=== PATIENT | female | born 1995 | race Caucasian/White ===

== ENCOUNTER 2017-09-05 19:00 | Emergency (ER) | payer SELFPAY ==
--- OUTSIDE RECORDS SUMMARY | 2017-09-05 19:03 | XMS REPORT | Clinical Summary ---
:1995 Author Organization [facility] Address [address] [place] [address] Phone Care Team Providers Name Role Phone Unavailable Primary Care Provider Unavailable Allergies Active Allergy Reactions Severity Noted Date Comments Ciprofloxacin 02/19/2017 Latex 02/19/2017 Current Medications Prescription Sig. Disp. Refills Start Date End Date Status fvjtnwwjs-NG-HU-acetaminophen Take by mouth. Active 52-04-13-650 mg PPkS Active Problems Not on file Encounters Date Type Specialty Care Team Description 02/20/2017 Emergency Emergency Medicine after 09/04/2016 Social History Tobacco Use Types Packs/Day Years Used Date Current Every Day Smoker Smokeless Tobacco: Never Used Alcohol Use Drinks/Week oz/Week Comments Yes Sex Assigned at Date Recorded Not on file Last Filed Vital Signs Vital Sign Reading Time Taken Blood Pressure 136/62 02/20/2017 3:29 AM STYLIST ASSISTANT Pulse 82 02/20/2017 3:29 AM STYLIST ASSISTANT Temperature 36.6 C (97.8 F) 02/20/2017 3:29 AM STYLIST ASSISTANT Respiratory Rate 18 02/20/2017 3:29 AM STYLIST ASSISTANT Oxygen Saturation 100% 02/20/2017 3:29 AM STYLIST ASSISTANT Inhaled Oxygen Concentration - - Weight 77.1 kg (170 lb) 02/19/2017 9:53 PM STYLIST ASSISTANT Height 162.6 cm (5' 4") 02/19/2017 9:53 PM STYLIST ASSISTANT Body Mass Index 29.18 02/19/2017 9:53 PM STYLIST ASSISTANT Plan of Treatment Not on file Results CBC with platelet count + automated diff (02/20/2017 2:38 AM) Component Value Ref Range WBC 10.0 3.5 - 10.5 K/L RBC 4.50 3.93 - 5.22 M/L Hemoglobin 13.2 11.2 - 15.7 GM/DL Hematocrit 39.9 34.1 - 44.9 % MCV 88.7 79.4 - 94.8 fL MCH 29.3 25.6 - 32.2 pg MCHC 33.1 32.2 - 35.5 GM/DL RDW 13.5 11.7 - 14.4 % Platelets 227 150 - 450 K/CU MM MPV 10.5 9.4 - 12.3 fL nRBC 0 0 - 0 /100 WBC % Neutros 46 % % Lymphs 35 % % Monos 10 % % Eos 8 % % Baso 1 % # Neutros 4.60 1.56 - 6.13 K/L # Lymphs 3.51 1.18 - 3.74 K/L # Monos 0.98 (H) 0.24 - 0.36 K/L # Eos 0.79 (H) 0.04 - 0.36 K/L # Baso 0.07 0.01 - 0.08 K/L Immature Granulocytes-Relative 0 0 - 1 % Specimen Performing Laboratory Blood - Arm, [address] [address] CBC with platelet count + automated diff (02/20/2017 2:38 AM) Specimen Performing Laboratory Blood Narrative The following orders were created for panel order CBC with platelet count + automated diff. Procedure Abnormality Status --------- ------ CBC with platelet count ...[[id number]]AbnormalFinal result Please view results for these tests on the individual orders. hCG, quantitative, (02/20/2017 2:38 AM) Component Value Ref Range hCG Quant <1 0 - 10 mIU/mL Specimen Performing Laboratory Blood - Arm, [address] [address] Narrative Non- Females: <10 mIU/mL Females: Gestation AgeReference Range(mIU/mL) 0.2-1 Week5-50 1-2 [id number] 2-3 Weeks 100-5,000 3-4 Weeks 500-10,000 4-5 Weeks 1,000-50,000 5-6 Weeks10,000-100,000 6-8 Weeks15,000-200,000 2-3 Months 10,000-100,000 Basic metabolic panel (Na, K+, Cl, CO2, Glu, Ca, BUN, Cr) (02/20/2017 2:38 AM) Component Value Ref Range Sodium 139 136 - 145 meq/L Potassium 4.0 3.5 - 5.1 meq/L Chloride 106 98 - 107 meq/L CO2 23 22 - 29 meq/L BUN 8 7 - 21 mg/dL Creatinine 0.78 0.57 - 1.25 mg/dL Glucose 95 70 - 105 mg/dL Calcium 9.7 8.4 - 10.2 mg/dL EGFR 92Comment: ESTIMATED GFR IS NOT ACCURATE mL/min/1.73 sq m CREATININE CLEARANCE IN PREDICTING GLOMERULAR FILTRATION RATE. ESTIMATED GFR IS NOT APPLICABLE FOR DIALYSIS PATIENTS. Specimen Performing Laboratory Blood - Arm, Left [address] [address] screen, urine (02/19/2017 9:57 PM) Component Value Ref Range Preg Test, Ur Negative Specimen Performing Laboratory Urine - Urine, Clean Catch [address] [address] Urinalysis w/Microscopic - Clean Catch (02/19/2017 9:57 PM) Component Value Ref Range Color, UA Harmon Clarity, UA Hazy Specific [place], UA 1.021 1.001 - 1.035 pH, UA 6.5 5.0 - 8.0 Protein, UA 50 mg/dL (A) Negative Glucose, UA Negative Negative Ketones, UA Trace (A) Negative Bilirubin, UA Negative Negative Blood, UA Large (A) Negative Nitrite, UA Negative Negative Leukocytes, UA Moderate (A) Negative Urobilinogen, UA 4.0 (H) 0.2 - 1.0 mg/dL RBC, UA >182 /HPF WBC, UA 23 /HPF Mucus Many Squam Epithel, UA 5 /HPF Specimen Source Urine, Clean Catch Specimen Performing Laboratory Urine - Urine, Clean Catch [address] [address] after 09/04/2016
--- OUTSIDE RECORDS SUMMARY | 2017-09-05 19:03 | XMS REPORT ---
:1995 Author Organization [facility] Address [address] [place] [address] Care Team Providers Name Role Phone Unavailable Unavailable Unavailable Problems This patient has no known problems. Allergies, Adverse Reactions, Alerts This patient has no known allergies or adverse reactions. Medications This patient has no known medications. Results Test Description Test Time Test Comments Text Results Atomic Results Result Comments HCG, QUANTITATIVE, 2017-02-20 03:46:00 Test Item Value Reference Range Comments GONADOTROPIN, CHORIONIC (HCG) QUANT (BEAKER) (test kugu=361) < mIU/mL 0-10 Non- Females: <10 mIU/mL Females: Gestation Age Reference Range(mIU/mL) 0.2-1 Week 5-50 1-2 Weeks 50-500 2-3 Weeks 100-5,000 3-4Weeks 500-10,000 4 -5 Weeks 1,000-50,000 5-6 Weeks 10,000-100,000 6-8 Weeks 15,000-200,000 2-3 Months 10,000-100,000BASIC METABOLIC [id number] 03:36:00 Test Item Value Reference Range Comments SODIUM (BEAKER) (test 139 meq/L 136-145 johb=930) POTASSIUM (BEAKER) (test 4.0 meq/L 3.5-5.1 ciwj=472) CHLORIDE (BEAKER) (test 106 meq/L 98-107 bquy=029) CO2 (BEAKER) (test 23 meq/L 22-29 nlna=867) BLOOD UREA NITROGEN 8 mg/dL 7-21 (BEAKER) (test diky=687) CREATININE (BEAKER) (test 0.78 mg/dL 0.57-1.25 naez=721) GLUCOSE RANDOM (BEAKER) 95 mg/dL 70-105 (test nrkv=587) CALCIUM (BEAKER) (test 9.7 mg/dL 8.4-10.2 gutn=818) EGFR (BEAKER) (test 92 mL/min/1.73 sq m ESTIMATED GFR IS NOT zmzm=4894) ACCURATE CREATININE CLEARANCE IN PREDICTING GLOMERULAR FILTRATION RATE. ESTIMATED GFR IS NOT APPLICABLE FOR DIALYSIS PATIENTS. CBC W/PLT COUNT & AUTO [id number] 02:53:00 Test Item Value Reference Range Comments WHITE BLOOD CELL COUNT (BEAKER) (test cszu=391) 10.0 K/ L 3.5-10.5 RED BLOOD CELL COUNT (BEAKER) (test hhay=698) 4.50 M/ L 3.93-5.22 HEMOGLOBIN (BEAKER) (test hfby=821) 13.2 GM/DL 11.2-15.7 HEMATOCRIT (BEAKER) (test gjzm=149) 39.9 % 34.1-44.9 MEAN CORPUSCULAR VOLUME (BEAKER) (test acts=502) 88.7 fL 79.4-94.8 MEAN CORPUSCULAR HEMOGLOBIN (BEAKER) (test 29.3 pg 25.6-32.2 eyjk=149) MEAN CORPUSCULAR HEMOGLOBIN CONC (BEAKER) (test 33.1 GM/DL 32.2-35.5 bydz=759) RED CELL DISTRIBUTION WIDTH (BEAKER) (test 13.5 % 11.7-14.4 oeel=507) PLATELET COUNT (BEAKER) (test moin=136) 227 K/CU MM 150-450 MEAN PLATELET VOLUME (BEAKER) (test qngx=814) 10.5 fL 9.4-12.3 NUCLEATED RED BLOOD CELLS (BEAKER) (test 0 /100 WBC 0-0 doih=044) NEUTROPHILS RELATIVE PERCENT (BEAKER) (test 46 % syqk=452) LYMPHOCYTES RELATIVE PERCENT (BEAKER) (test 35 % lfwd=548) MONOCYTES RELATIVE PERCENT (BEAKER) (test 10 % eplp=202) EOSINOPHILS RELATIVE PERCENT (BEAKER) (test 8 % skzd=308) BASOPHILS RELATIVE PERCENT (BEAKER) (test 1 % lkux=490) NEUTROPHILS ABSOLUTE COUNT (BEAKER) (test 4.60 K/ L 1.56-6.13 mznj=989) LYMPHOCYTES ABSOLUTE COUNT (BEAKER) (test 3.51 K/ L 1.18-3.74 kgqx=587) MONOCYTES ABSOLUTE COUNT (BEAKER) (test 0.98 K/ L 0.24-0.36 admg=639) EOSINOPHILS ABSOLUTE COUNT (BEAKER) (test 0.79 K/ L 0.04-0.36 ucck=598) BASOPHILS ABSOLUTE COUNT (BEAKER) (test 0.07 K/ L 0.01-0.08 kesd=863) IMMATURE GRANULOCYTES-RELATIVE PERCENT (BEAKER) 0 % 0-1 (test trig=0224) URINALYSIS W/ [id number] 22:40:00 Test Item Value Reference Range Comments COLOR (BEAKER) (test ciez=489) Oral CLARITY (BEAKER) (test yxpb=650) Hazy SPECIFIC GRAVITY UA (BEAKER) (test 1.021 1.001-1.035 hvyx=025) PH UA (BEAKER) (test ssys=991) 6.5 5.0-8.0 PROTEIN UA (BEAKER) (test wfry=503) 50 mg/dL Negative GLUCOSE UA (BEAKER) (test rjrv=210) Negative Negative KETONES UA (BEAKER) (test dcmb=497) Trace Negative BILIRUBIN UA (BEAKER) (test dfgg=458) Negative Negative BLOOD UA (BEAKER) (test lyxc=541) Large Negative NITRITE UA (BEAKER) (test bjdo=218) Negative Negative LEUKOCYTE ESTERASE UA (BEAKER) (test Moderate Negative luut=623) UROBILINOGEN UA (BEAKER) (test yxlp=519) 4.0 mg/dL 0.2-1.0 RBC UA (BEAKER) (test rdhl=581) > /HPF WBC UA (BEAKER) (test qzkl=559) 23 /HPF MUCUS (BEAKER) (test lyzo=0486) Many SQUAMOUS EPITHELIAL (BEAKER) (test 5 /HPF xuwr=525) SOURCE(BEAKER) (test aveb=5520) Urine, Clean Catch SCREEN, [id number] 22:34:00 Test Item Value Reference Range Comments TEST URINE (BEAKER) (test dbwx=661) Negative
--- NOTE | 2017-09-05 21:32 | RAD REPORT ---
EXAM DESCRIPTION: RAD - Foot Left 3 View - 09/05/2017 9:23 pm CLINICAL HISTORY: Pain;Swelling COMPARISON: Foot Left 3 View dated 02/03/2017 FINDINGS: No bone or joint abnormality.
--- NOTE | 2017-09-05 21:46 | ER ---
Nurse's Notes [facility] Name: Marita Dangelo Age: 22 yrs Sex: Female : 1995 Arrival Date: 09/05/2017 Time: 19:14 Bed Treatment Private MD: Diagnosis: Pain in left ankle and joints of left foot Presentation: 09/05 19:17 Presenting complaint: Patient states: left ankle pain that began Friday. Pt denies aa5 known injury. Pt states "I've hurt my ACL before so maybe is that again". Transition of care: patient was not received from another setting of care. Onset of symptoms was August 2017. Risk Assessment: Do you want to hurt yourself or someone else? Patient reports no desire to harm self or others. Initial Sepsis Screen: Does the patient meet any 2 criteria? No. Patient's initial sepsis screen is negative. Does the patient have a suspected source of infection? No. Patient's initial sepsis screen is negative. Care prior to arrival: None. 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 - Social history:: Smoking status: Patient uses tobacco products, 5 cigarettes a day . - Ebola Screening: : No symptoms or risks identified at this time. Screenin:44 Abuse screen: Denies threats or abuse. Nutritional screening: No deficits noted. bb Tuberculosis screening: No symptoms or risk factors identified. Fall Risk None identified. Assessment: 21:43 General: Appears in no apparent distress. Behavior is calm, cooperative. Pain: bb Complains of pain in left ankle. Neuro: Level of Consciousness is awake, alert, obeys commands, Oriented to person, place, time, situation. Cardiovascular: No deficits noted. Respiratory: Respiratory effort is even, unlabored. GI: No signs and/or symptoms were reported involving the gastrointestinal system. Derm: Skin is pink, warm \\T\\ dry. Musculoskeletal: Circulation, motion, and sensation intact. Reports pain in left ankle. 21:59 Reassessment: No changes from previously documented assessment. Patient is alert, bb oriented x 3, equal unlabored respirations, skin warm/dry/pink. pt verbalized understanding of and agrees to plan of care discharge instructions given pt ambulated to exit. Vital Signs: 19:19 BP 114 / 93; Pulse 83; Resp 16 S; Temp 97.8(TE); Pulse Ox 99% on R/A; Weight 81.65 kg aa5 (R); Height 5 ft. 4 in. (162.56 cm) (R); Pain 8/10; 22:01 BP 114 / 65; Pulse 51; Resp 16 S; Temp 96.3(O); Pulse Ox 99% on R/A; bb 19:19 Body Mass Index 30.90 (81.65 kg, 162.56 cm) aa5 ED Course: 19:14 Patient arrived in ED. es 19:18 Triage completed. aa5 19:18 Arm band placed on. aa5 20:57 Chencho Underwood NP is [facility]. pm1 20:57 Raf Solomon MD is Attending Physician. pm1 21:20 Foot Left 3 View XRAY In Process Unspecified. EDMS 21:43 Leandra Amin, RN is Primary Nurse. bb 21:44 Patient has correct armband on for positive identification. Call light in reach. bb 21:45 Ricky Miller MD is Referral Physician. pm1 22:00 No provider procedures requiring assistance completed. Patient did not have IV access bb during this emergency room visit. Administered Medications: No medications were administered Outcome: 21:45 Discharge ordered by . pm1 22:00 Discharged to home ambulatory. bb 22:00 Condition: stable 22:00 Discharge instructions given to patient, Instructed on discharge instructions, follow up and referral plans. Demonstrated understanding of instructions, follow-up care. 22:01 Patient left the ED. bb Signatures: Dispatcher [employer] EDMS Esther Quintero Leandra Amin, RN RN bb Veronica Brooks RN RN aa5 Chencho Underwood NP TAPE SEWING MACHINE OPERATOR pm1
--- NOTE | 2017-09-05 21:46 | EDPHYS ---
Physician Documentation [facility] Name: Marita Dangelo Age: 22 yrs Sex: Female : 1995 Arrival Date: 09/05/2017 Time: 19:14 Bed Treatment Private MD: ED Physician Raf Solomon HPI: 09/05 22:00 This 22 yrs old Female presents to ER via Ambulatory with complaints of L pm1 ankle and foot pain. 22:00 The patient presents with pain. The complaints affect the left foot. Context: The pm1 problem was sustained at work, resulted from an unknown cause, No recent trauma, the patient is able to ambulate, When patient stands for long periods of time she experiences pain and swelling to left foot and ankle. Patient was seen by Dr. Hoyos for the left ankle and foot pain multiple months ago. Patient turned her ankle at that time and was diagnosed with foot and ankle sprain. Patient was given a walking boot and crutches at that time. Patient reports that she is having swelling and pain to her left foot and ankle that occurs when she is at work. 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 Patient's pain and swelling resolve after she rests and gets off her feet . 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 - Social history:: Smoking status: Patient uses tobacco products, 5 cigarettes a day . - Ebola Screening: : No symptoms or risks identified at this time. ROS: 22:00 MS/extremity: Positive for pain, swelling, Negative for decreased range of motion, pm1 deformity. 22:00 Constitutional: Negative for fever, chills, and weight loss, Eyes: Negative for injury, pain, redness, and discharge, ENT: Negative for injury, pain, and discharge, Neck: Negative for injury, pain, and swelling, Cardiovascular: Negative for chest pain, palpitations, and edema, Respiratory: Negative for shortness of breath, cough, wheezing, and pleuritic chest pain, Abdomen/GI: Negative for abdominal pain, nausea, vomiting, diarrhea, and constipation, Back: Negative for injury and pain, : Negative for injury, bleeding, discharge, and swelling, MS/Extremity: Negative for injury and deformity, Skin: Negative for injury, rash, and discoloration, Neuro: Negative for headache, weakness, numbness, tingling, and seizure. Exam: 22:00 Constitutional: This is a well developed, well nourished patient who is awake, alert, pm1 and in no acute distress. Head/Face: Normocephalic, atraumatic. Chest/axilla: Normal chest wall appearance and motion. Nontender with no deformity. No lesions are appreciated. Cardiovascular: Regular rate and rhythm with a normal S1 and S2. No gallops, murmurs, or rubs. Normal PMI, no JVD. No pulse deficits. Respiratory: Lungs have equal breath sounds bilaterally, clear to auscultation and percussion. No rales, rhonchi or wheezes noted. No increased work of breathing, no retractions or nasal flaring. Abdomen/GI: Soft, non-tender, with normal bowel sounds. No distension or tympany. No guarding or rebound. No evidence of tenderness throughout. Back: No spinal tenderness. No costovertebral tenderness. Full range of motion. 22:00 Skin: Warm, dry with normal turgor. Normal color with no rashes, no lesions, and no evidence of cellulitis. 22:00 Musculoskeletal/extremity: Extremities: grossly normal except: noted in the dorsum of left foot: tenderness, There is no evidence of swelling to left foot or ankle, ROM: full active range of motion, in the left foot, full passive range of motion, in the left foot, Circulation is intact in all extremities. the left foot Sensation intact. Calves: are non-tender, have equal circumference. 22:00 Neuro: Orientation: is normal, Motor: moves all fours, Sensation: is normal, no obvious gross deficits. Vital Signs: 19:19 BP 114 / 93; Pulse 83; Resp 16 S; Temp 97.8(TE); Pulse Ox 99% on R/A; Weight 81.65 kg aa5 (R); Height 5 ft. 4 in. (162.56 cm) (R); Pain 8/10; 22:01 BP 114 / 65; Pulse 51; Resp 16 S; Temp 96.3(O); Pulse Ox 99% on R/A; bb 19:19 Body Mass Index 30.90 (81.65 kg, 162.56 cm) aa5 MDM: 20:57 Patient medically screened. pm1 21:43 ED course: Patient has a walking boot and crutches from Dr. Hoyos. Patient has been pm1 wearing walking boot to work recently. Advised patient to be reevaluated by Dr. Hoyos. 21:44 Data reviewed: vital signs. Data interpreted: Pulse oximetry: on room air is 99 %. pm1 Interpretation: normal. Counseling: I had a detailed discussion with the patient and/or guardian regarding: the historical points, exam findings, and any diagnostic results supporting the discharge/admit diagnosis, radiology results, the need for outpatient follow up, to return to the emergency department if symptoms worsen or persist or if there are any questions or concerns that arise at home. 09/05 21:01 Order name: Foot Left 3 View XRAY; Complete Time: 21:42 pm1 Administered Medications: No medications were administered Disposition: 09/05/17 21:45 Discharged to Home. Impression: Pain in left ankle and joints of left foot. - Condition is Stable. - Discharge Instructions: Foot Sprain, Ankle Pain. - Medication Reconciliation Form, Thank You Letter form. - Follow up: Emergency Department; When: As needed; Reason: Worsening of condition. Follow up: Ricky Hoyos MD; When: 2 - 3 days; Reason: Recheck today's complaints, Continuance of care, Re-evaluation by your physician. Addendum: 09/08/2017 10:17 Co-signature as Attending Physician, Raf Solomon MD I agree with the assessment and w a plan of care. Signatures: Dispatcher [employer] Leandra Cabello RN RN bb Veronica Brooks RN RN aa5 Chencho Underwood, CREMATORY ATTENDANT CREMATORY ATTENDANT pm1 Raf Solomon MD MD ar Corrections: (The following items were deleted from the chart) 09/05 22:01 21:45 09/05/2017 21:45 Discharged to Home. Impression: Pain in left ankle and joints of bb left foot. Condition is Stable. Forms are Medication Reconciliation Form, Thank You Letter, Antibiotic Education, Prescription Opioid Use. Follow up: Emergency Department; When: As needed; Reason: Worsening of condition. Follow up: Ricky Hoyos; When: 2 - 3 days; Reason: Recheck today's complaints, Continuance of care, Re-evaluation by your physician. pm1
== END 2017-09-05 22:01 | disposition home or self-care (01) ==
LOC: ER 19:00
DX: M25.572 Pain in left ankle and joints of left foot (principal); Z88.1 Allergy status to other antibiotic agents; F17.210 Nicotine dependence, cigarettes, uncomplicated
CPT/HCPCS: 99283

== ENCOUNTER 2017-09-17 13:05 | Emergency (ER) | payer SELFPAY ==
--- OUTSIDE RECORDS SUMMARY | 2017-09-17 13:06 | XMS REPORT | Clinical Summary ---
:1995 Author Organization [facility] Address [address] [place] [address] Phone Care Team Providers Name Role Phone Unavailable Primary Care Provider Unavailable Allergies Active Allergy Reactions Severity Noted Date Comments Ciprofloxacin 02/19/2017 Latex 02/19/2017 Current Medications Prescription Sig. Disp. Refills Start Date End Date Status fqsucwdab-LL-HC-acetaminophen Take by mouth. 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 Pulse 82 02/20/2017 3:29 AM FRACTIONATION PLANT SUPERVISOR Temperature 36.6 C (97.8 F) 02/20/2017 3:29 AM FRACTIONATION PLANT SUPERVISOR Respiratory Rate 18 02/20/2017 3:29 AM FRACTIONATION PLANT SUPERVISOR Oxygen Saturation 100% 02/20/2017 3:29 AM FRACTIONATION PLANT SUPERVISOR Inhaled Oxygen Concentration - - Weight 77.1 kg (170 lb) 02/19/2017 9:53 PM FRACTIONATION PLANT SUPERVISOR Height 162.6 cm (5' 4") 02/19/2017 9:53 PM FRACTIONATION PLANT SUPERVISOR Body Mass Index 29.18 02/19/2017 9:53 PM FRACTIONATION PLANT SUPERVISOR Plan of Treatment Not on file Results [...] % Specimen Performing Laboratory Blood - Arm, [address] [address] CBC with platelet count + automated diff (02/20/2017 2:38 AM) Specimen Performing Laboratory Blood Narrative The following orders were created for panel order CBC with platelet count + automated diff. Procedure Abnormality Status --------- ------ CBC with platelet count ...[[id number]]AbnormalFinal result Please view results for these tests on the individual orders. hCG, quantitative, (02/20/2017 2:38 AM) Component Value Ref Range hCG Quant <1 0 - 10 mIU/mL Specimen Performing Laboratory Blood - Arm, [address] [address] Narrative Non- Females: <10 mIU/mL Females: Gestation AgeReference Range(mIU/mL) 0.2-1 Week5-50 1-2 [id number] 2-3 Weeks 100-5,000 3-4 Weeks 500-10,000 4-5 [...] Specimen Performing Laboratory Blood - Arm, Left [address] [address] screen, urine (02/19/2017 9:57 PM) Component Value Ref Range Preg Test, Ur Negative Specimen Performing Laboratory Urine - Urine, Clean Catch [address] [address] Urinalysis w/Microscopic - Clean Catch (02/19/2017 9:57 PM) Component Value Ref Range Color, UA [place] Clarity, UA Hazy Specific [place], UA 1.021 1.001 - 1.035 pH, UA [...] Performing Laboratory Urine - Urine, Clean Catch [address] [address] after 09/16/2016
--- OUTSIDE RECORDS SUMMARY | 2017-09-17 13:07 | XMS REPORT ---
:1995 [facility] Address [address] [place] [address] Care Team Providers Name Role Phone Unavailable [...] Comments GONADOTROPIN, CHORIONIC (HCG) QUANT (BEAKER) (test epqk=747) < mIU/mL 0-10 Non- Females: <10 mIU/mL Females: Gestation Age Reference Range(mIU/mL) 0.2-1 Week 5-50 1-2 Weeks 50-500 2-3 Weeks 100-5,000 3-4Weeks 500-10,000 4 -5 Weeks 1,000-50,000 5-6 Weeks 10,000-100,000 6-8 Weeks 15,000-200,000 2-3 Months 10,000-100,000BASIC METABOLIC [id number] 03:36:00 Test Item Value Reference Range Comments SODIUM (BEAKER) (test 139 meq/L 136-145 jydy=721) POTASSIUM (BEAKER) (test 4.0 meq/L 3.5-5.1 rxnk=017) CHLORIDE (BEAKER) (test 106 meq/L 98-107 hici=136) CO2 (BEAKER) (test 23 meq/L 22-29 jroa=067) BLOOD UREA NITROGEN 8 mg/dL 7-21 (BEAKER) (test xlhe=016) CREATININE (BEAKER) (test 0.78 mg/dL 0.57-1.25 ivkh=617) GLUCOSE RANDOM (BEAKER) 95 mg/dL 70-105 (test lvkr=217) CALCIUM (BEAKER) (test 9.7 mg/dL 8.4-10.2 orow=932) EGFR (BEAKER) (test 92 mL/min/1.73 sq m ESTIMATED GFR IS NOT voil=1873) ACCURATE CREATININE CLEARANCE IN PREDICTING GLOMERULAR FILTRATION RATE. ESTIMATED GFR IS NOT APPLICABLE FOR DIALYSIS PATIENTS. CBC W/PLT COUNT & AUTO [id number] 02:53:00 Test Item Value Reference Range Comments WHITE BLOOD CELL COUNT (BEAKER) (test kxen=565) 10.0 K/ L 3.5-10.5 RED BLOOD CELL COUNT (BEAKER) (test yyrh=808) 4.50 M/ L 3.93-5.22 HEMOGLOBIN (BEAKER) (test myee=029) 13.2 GM/DL 11.2-15.7 HEMATOCRIT (BEAKER) (test gnjw=261) 39.9 % 34.1-44.9 MEAN CORPUSCULAR VOLUME (BEAKER) (test wuji=173) 88.7 fL 79.4-94.8 MEAN CORPUSCULAR HEMOGLOBIN (BEAKER) (test 29.3 pg 25.6-32.2 adda=611) MEAN CORPUSCULAR HEMOGLOBIN CONC (BEAKER) (test 33.1 GM/DL 32.2-35.5 gkvj=557) RED CELL DISTRIBUTION WIDTH (BEAKER) (test 13.5 % 11.7-14.4 lovf=015) PLATELET COUNT (BEAKER) (test jhae=883) 227 K/CU MM 150-450 MEAN PLATELET VOLUME (BEAKER) (test hcth=227) 10.5 fL 9.4-12.3 NUCLEATED RED BLOOD CELLS (BEAKER) (test 0 /100 WBC 0-0 oclf=692) NEUTROPHILS RELATIVE PERCENT (BEAKER) (test 46 % xiyt=943) LYMPHOCYTES RELATIVE PERCENT (BEAKER) (test 35 % pdos=560) MONOCYTES RELATIVE PERCENT (BEAKER) (test 10 % omke=113) EOSINOPHILS RELATIVE PERCENT (BEAKER) (test 8 % yspq=510) BASOPHILS RELATIVE PERCENT (BEAKER) (test 1 % ialz=351) NEUTROPHILS ABSOLUTE COUNT (BEAKER) (test 4.60 K/ L 1.56-6.13 jeaq=143) LYMPHOCYTES ABSOLUTE COUNT (BEAKER) (test 3.51 K/ L 1.18-3.74 khhs=345) MONOCYTES ABSOLUTE COUNT (BEAKER) (test 0.98 K/ L 0.24-0.36 rdli=913) EOSINOPHILS ABSOLUTE COUNT (BEAKER) (test 0.79 K/ L 0.04-0.36 eeis=690) BASOPHILS ABSOLUTE COUNT (BEAKER) (test 0.07 K/ L 0.01-0.08 qjil=070) IMMATURE GRANULOCYTES-RELATIVE PERCENT (BEAKER) 0 % 0-1 (test baup=2526) URINALYSIS W/ [id number] 22:40:00 Test Item Value Reference Range Comments COLOR (BEAKER) (test xnak=433) Rice CLARITY (BEAKER) (test kecp=033) Hazy SPECIFIC GRAVITY UA (BEAKER) (test 1.021 1.001-1.035 uygf=144) PH UA (BEAKER) (test kfny=106) 6.5 5.0-8.0 PROTEIN UA (BEAKER) (test qssm=120) 50 mg/dL Negative GLUCOSE UA (BEAKER) (test imen=311) Negative Negative KETONES UA (BEAKER) (test yaos=509) Trace Negative BILIRUBIN UA (BEAKER) (test qaot=504) Negative Negative BLOOD UA (BEAKER) (test uthr=960) Large Negative NITRITE UA (BEAKER) (test apra=111) Negative Negative LEUKOCYTE ESTERASE UA (BEAKER) (test Moderate Negative oeym=890) UROBILINOGEN UA (BEAKER) (test zouc=606) 4.0 mg/dL 0.2-1.0 RBC UA (BEAKER) (test qgsw=652) > /HPF WBC UA (BEAKER) (test eisv=846) 23 /HPF MUCUS (BEAKER) (test gmbq=3743) Many SQUAMOUS EPITHELIAL (BEAKER) (test 5 /HPF brtr=078) SOURCE(BEAKER) (test pskp=3279) Urine, Clean Catch SCREEN, [id number] 22:34:00 Test Item Value Reference Range Comments TEST URINE (BEAKER) (test gedn=959) Negative
--- OUTSIDE RECORDS SUMMARY | 2017-09-17 13:07 | XMS REPORT | Summary of Care ---
:1995 Author Organization [facility] Address [address], [place] [address]- Encounter HQ Kamntr_ray([facility]) [id number] Date(s): 10/13/16 - 10/13/16 [facility] [address] [place] [address]- Discharge Diagnosis: Urinary tract infection Discharge Disposition: Home or Self Care Attending Physician: Emmanuel Oglesby MD Vital Signs Most recent to oldest 1 2 3 [Reference Range]: Temperature Oral [96.4-99.1 98.7 DegF DegF] (10/13/16 5:52 PM) Blood Pressure [90-140/60-90 100/61 mmHg 112/62 mmHg 124/78 mmHg mmHg] (10/13/16 10:54 PM) (10/13/16 8:10 PM) (10/13/16 5:52 PM) Respiratory Rate [14-20 BRMIN] 16 BRMIN 20 BRMIN (10/13/16 8:10 PM) (10/13/16 5:52 PM) Peripheral Pulse Rate [60-100 69 bpm 62 bpm 103 bpm bpm] (10/13/16 10:54 PM) (10/13/16 8:10 PM) *HI* (10/13/16 5:52 PM) Weight 82.682 kg (10/13/16 5:52 PM) Problem List Condition Effective Dates Status Health Status Informant Ankle pain, left(Confirmed) Active Ankle sprain(Confirmed) Active Allergies, Adverse Reactions, Alerts Substance Reaction Severity Status ciprofloxacin Active Medications Dilaudid 1 mg, Route: IVP, ONCE, Dosing Weight 82.682, kg, Priority: STAT, Start date: 19:59:00 CDT,Stop date: 10/13/16 19:59:00 CDT Start Date: 10/13/16 Stop Date: 10/13/16 Status: CompletedketOROLAC 30 mg, Route: IVP, ONCE, Dosing Weight 82.682, kg, Priority: STAT, Start date: 10/13/16 18:14:00 CDT, Stop date: 10/13/16 18:14:00 CDT Start Date: 10/13/16 Stop Date: 10/13/16 Status: Completednitrofurantoin 100 mg, 1 cap, Route: PO, Drug form: CAP, ONCE, Dosing Weight 82.682, kg, Priority: STAT, Start date: 10/13/16 22:05:00 CDT, Stop date: 10/13/16 22:05:00 CDT Notes: Not recommended for patients with CrCl<50 ml/min (Same as:Macrobid) With food. Start Date: 10/13/16 Stop Date: 10/13/16 Status: Completednitrofurantoin macrocrystals 100 mg oral capsule (Macrodantin) 100 mg=1 cap, PO, QID, X 7 day, # 28 cap, 0 Refill(s) Start Date: 10/13/16 Stop Date: 10/20/16 Status: Orderedondansetron 4 mg, Route: IVP, ONCE, Dosing Weight 82.682, kg, Priority: STAT, Start date: 18:14:00 CDT,Stop date: 10/13/16 18:14:00 CDT Start Date: 10/13/16 Stop Date: 10/13/16 Status: CompletedSaline Flush 0.9% 10 mL, Route: IVP, Drug Form: INJ, Dosing Weight 82.682, kg, PRN, PRN Line Flush , Start date: 10/13/16 18:14:00 CDT, Duration: 30 day, Stop date: 11/12/16 18:13 :00 CDT Notes: (Same as: BD Posiflush) Start Date: 10/13/16 Stop Date: 10/13/16 Status: Discontinued Results ELECTROLYTES Most recent to oldest [Reference Range]: 1 Sodium Lvl [135-145 mEq/L] 139 mEq/L (10/13/16 6:30 PM) Potassium Lvl [3.5-5.1 mEq/L] 3.6 mEq/L (10/13/16 6:30 PM) Chloride Lvl [95-109 mEq/L] 107 mEq/L (10/13/16 6:30 PM) CO2 [24-32 mEq/L] 25 mEq/L (10/13/16 6:30 PM) AGAP [10.0-20.0 mEq/L] 10.6 mEq/L (10/13/16 6:30 PM) CHEM PANEL Most recent to oldest [Reference Range]: 1 Creatinine Lvl [0.50-1.40 mg/dL] 0.76 mg/dL (10/13/16 6:30 PM) eGFR 111 mL/min/1.73m2 1 *NA* (10/13/16 6:30 PM) BUN [7-22 mg/dL] 11 mg/dL (10/13/16 6:30 PM) B/C Ratio [6-25] 14 (10/13/16 6:30 PM) Glucose Lvl [70-99 mg/dL] 87 mg/dL (10/13/16 6:30 PM) Total Protein [6.4-8.4 g/dL] 7.6 g/dL (10/13/16 6:30 PM) Albumin Lvl [3.5-5.0 g/dL] 3.8 g/dL (10/13/16 6:30 PM) Globulin [2.7-4.2 g/dL] 3.8 g/dL (10/13/16 6:30 PM) A/G Ratio [0.7-1.6] 1.0 (10/13/16 6:30 PM) Calcium Lvl [8.5-10.5 mg/dL] 8.9 mg/dL (10/13/16 6:30 PM) ALT [0-65 unit/L] 34 unit/L (10/13/16 6:30 PM) AST [0-37 unit/L] 14 unit/L (10/13/16 6:30 PM) Alk Phos [39-136 unit/L] 91 unit/L (10/13/16 6:30 PM) Bili Total [0.2-1.3 mg/dL] 0.5 mg/dL (10/13/16 6:30 PM) Lipase Lvl [73-393 unit/L] 78 unit/L (10/13/16 6:30 PM) 1Result Comment: The eGFR is calculated using the CKD-EPI formula. In most young , healthy individualsthe eGFR will be >90 mL/min/1.73m2. The eGFR declines with age. An eGFR of 60-89 may be normal in some populations, particularly the elderly, for whom the CKD-EPI formula has not been extensively validated. Use of the eGFR is not recommended in the following populations: Individuals with unstable creatinine concentrations, including patients and those with serious co-morbid conditions. Patients with extremes in muscle mass or diet. The data above are obtained from the National Kidney Disease Education Program ( NKDEP) which additionally recommends that when the eGFR is used in patients with extremes of body mass index for purposesof drug dosing, the eGFR should be multiplied by the estimated BMI.ENDOCRINOLOGY Most recent to oldest [Reference Range]: 1 S Preg [Negative] Negative *NA* (10/13/16 6:30 PM) URINE AND STOOL Most recent to oldest [Reference Range]: 1 UA Turbidity [Clear] Marked *ABN* (10/13/16 6:30 PM) UA Color [Yellow] Yellow *NA* (10/13/16 6:30 PM) UA pH [5.0-8.0] 5.0 (10/13/16 6:30 PM) UA Spec Grav [<=1.030] 1.029 (10/13/16 6:30 PM) UA Glucose [Negative mg/dL] Negative mg/dL *NA* (10/13/16 6:30 PM) UA Blood [Negative] Large *ABN* (10/13/16 6:30 PM) UA Ketones [Negative mg/dL] Negative mg/dL *NA* (10/13/16 6:30 PM) UA Protein [Negative mg/dL] 30 mg/dL *ABN* (10/13/16 6:30 PM) UA Urobilinogen [0.1-1.0 mg/dL] <=1.0 mg/dL *NA* (10/13/16 6:30 PM) UA Bili [Negative] Negative *NA* (10/13/16 6:30 PM) UA Leuk Est [Negative] Moderate *ABN* (10/13/16 6:30 PM) UA Nitrite [Negative] Negative (10/13/16 6:30 PM) UA WBC [0-5 /HPF] 16 /HPF *HI* (10/13/16 6:30 PM) UA RBC [0-2 /HPF] >182 /HPF *HI* (10/13/16 6:30 PM) UA Bacteria [None Seen /HPF] Occasional /HPF *NA* (10/13/16 6:30 PM) UA Sq Epi [Few /LPF] Many /LPF *ABN* (10/13/16 6:30 PM) UA CaOx Terri [None Seen /HPF] Occasional /HPF *NA* (10/13/16 6:30 PM) UA Mucus [None Seen /LPF] Few /LPF *NA* (10/13/16 6:30 PM) HEMATOLOGY Most recent to oldest [Reference Range]: 1 WBC [3.7-10.4 K/CMM] 13.8 K/CMM *HI* (10/13/16 6:30 PM) RBC [4.20-5.40 M/CMM] 4.67 M/CMM (10/13/16 6:30 PM) Hgb [12.0-16.0 g/dL] 12.9 g/dL (10/13/16 6:30 PM) Hct [36.0-48.0 %] 39.6 % (10/13/16 6:30 PM) MCV [80.0-98.0 fL] 84.8 fL (10/13/16 6:30 PM) MCH [27.0-31.0 pg] 27.7 pg (10/13/16 6:30 PM) MCHC [32.0-36.0 g/dL] 32.7 g/dL (10/13/16 6:30 PM) RDW [11.5-14.5 %] 16.1 % *HI* (10/13/16 6:30 PM) Platelet [133-450 K/CMM] 247 K/CMM (10/13/16 6:30 PM) MPV [7.4-10.4 fL] 9.3 fL (10/13/16 6:30 PM) Segs [45.0-75.0 %] 64.9 % (10/13/16 6:30 PM) Lymphocytes [20.0-40.0 %] 23.3 % (10/13/16 6:30 PM) Monocytes [2.0-12.0 %] 8.6 % (10/13/16 6:30 PM) Eosinophils [0.0-4.0 %] 2.8 % (10/13/16 6:30 PM) Basophils [0.0-1.0 %] 0.4 % (10/13/16 6:30 PM) Segs-Bands # [1.5-8.1 K/CMM] 9.0 K/CMM *HI* (10/13/16 6:30 PM) Lymphocytes # [1.0-5.5 K/CMM] 3.2 K/CMM (10/13/16 6:30 PM) Monocytes # [0.0-0.8 K/CMM] 1.2 K/CMM *HI* (10/13/16 6:30 PM) Eosinophils # [0.0-0.5 K/CMM] 0.4 K/CMM (10/13/16 6:30 PM) Basophils # [0.0-0.2 K/CMM] 0.0 K/CMM (10/13/16 6:30 PM) Immunizations No data available for this section Procedures No data available for this section Social History Social History Type Response Smoking Status Current some day smoker; Type: Cigarettes; Ready to change: No; Concerns about tobacco use in household: No; Exposure to Tobacco Smoke None; Cigarette Smoking Last 365 Days Yes; Reg Smoking Cessation Counseling Yes Assessment and Plan No data available for this section
--- OUTSIDE RECORDS SUMMARY | 2017-09-17 13:07 | XMS REPORT | Summary of Care ---
:1995 Author Organization [facility] Address [address], [place] [address]- Encounter HQ La_ray([facility]) [id number] Date(s): 09/18/16 - 09/18/16 [facility] [address] [place] [address]- Discharge Diagnosis: Ankle pain, left Discharge Disposition: Home or Self Care Attending Physician: Caleb Mullen MD Vital Signs Most recent to oldest [Reference Range]: 1 2 Temperature Oral [96.4-99.1 DegF] 98.0 DegF 98.4 DegF (09/18/16 8:43 PM) (09/18/16 6:59 PM) Blood Pressure [90-140/60-90 mmHg] 99/50 mmHg 129/72 mmHg (09/18/16 8:43 PM) (09/18/16 6:59 PM) Respiratory Rate [14-20 BRMIN] 16 BRMIN 17 BRMIN (09/18/16 8:43 PM) (09/18/16 6:59 PM) Peripheral Pulse Rate [60-100 bpm] 68 bpm 82 bpm (09/18/16 8:43 PM) (09/18/16 6:59 PM) Weight 83 kg (09/18/16 6:59 PM) Problem List Condition Effective Dates Status Health Status Informant Ankle pain, left(Confirmed) Active Ankle sprain(Confirmed) Active Allergies, Adverse Reactions, Alerts No data available for this section Medications ibuprofen 600 mg, Route: PO, Drug form: TAB, ONCE, Dosing Weight 83, kg, Priority: STAT, Start date: 09/18/16 20:01:00 CDT, Stop date: 09/18/16 20:01:00 CDT Start Date: 09/18/16 Stop Date: 09/18/16 Status: CompletedMotrin 800 mg oral tablet 800 mg=1 tab, PO, Q8H, PRN Pain, Take with food, X 10 day, # 30 tab, 0 Refill(s) Start Date: 09/18/16 Stop Date: 09/28/16 Status: Ordered Results No data available for this section Immunizations No data available for this section [...]
--- OUTSIDE RECORDS SUMMARY | 2017-09-17 13:07 | XMS REPORT | Continuity of Care Document ---
:1995 Author Organization Interface Problems Problem Status Onset Classification Date Comments Source Date Reported Discharge 10/16/2016 [facility] Diagnosis: 7 [place] Urinary tract infection ABD PAIN Active [facility] [place] Discharge 09/21/2016 [facility] Diagnosis: 7 [place] Ankle pain, left FOOT PAIN Active [facility] [place] Ankle pain, Active Problem 10/16/2016 [place] left [place] Ankle sprain Active Problem 10/16/2016 [facility] Medications Medication Details Route Status Patient Ordering Order Source Instructions Provider Date Macrodantin
100 mg, Inactive [facility] 1 cap, Route: 017 [place] PO, Drug form: CAP, ONCE, Dosing Weight 82.682, kg, Priority: STAT, Start date: 10/13/16 22:05:00 CDT, Stop date: 10/13/16 22:05:00 CDT
Notes : Not recommended for patients with CrCl<50 ml/min (Same as:Macrobid) With food. nitrofurantoin
100 mg=1 Active [facility] macrocrystals cap, PO, QID, 017 [place] 100 mg oral X 7 day, # 28 capsule cap, 0 (Macrodantin) Refill(s) Dilaudid
1 mg, Inactive [facility] Route: IVP, 017 [place] ONCE, Dosing Weight 82.682, kg, Priority: STAT, Start date: 10/13/16 19:59:00 CDT, Stop date: 10/13/16 19:59:00 CDT Ketorolac
30 mg, Inactive [facility] Route: IVP, 017 [place] ONCE, Dosing Weight 82.682, kg, Priority: STAT, Start date: 10/13/16 18:14:00 CDT, Stop date: 10/13/16 18:14:00 CDT Ondansetron
4 mg, Inactive [facility] Route: IVP, 017 [place] ONCE, Dosing Weight 82.682, kg, Priority: STAT, Start date: 10/13/16 18:14:00 CDT, Stop date: 10/13/16 18:14:00 CDT Saline Flush
10 mL, Inactive [facility] 0.9% Route: IVP, 017 [place] Drug Form: INJ, Dosing Weight 82.682, kg, PRN, PRN Line Flush, Start date: 10/13/16 18:14:00 CDT, Duration: 30 day, Stop date: 11/12/16 18:13:00 CDT
Notes : (Same as: BD Posiflush) Motrin 800 mg
800 mg=1 Active [facility] oral tablet tab, PO, Q8H, 017 [place] PRN Pain, Take with food, X 10 day, # 30 tab, 0 Refill(s) Ibuprofen
600 mg, Inactive [facility] Route: PO, 017 [place] Drug form: TAB, ONCE, Dosing Weight 83, kg, Priority: STAT, Start date: 09/18/16 20:01:00 CDT, Stop date: 09/18/16 20:01:00 CDT Allergies, Adverse Reactions, Alerts Substance Category Reaction Severity Reaction Status Date Comments Source type Reported ciprofloxacin Assertion Drug Active allergy [facility] Immunizations Immunization Date Given Site Status Last Updated Comments Source Results Order Name Results Value Reference Date Interpretation Comments Source Range CHEM PANEL Lipase Lvl 78 unit/L 73 - 393 10/13 [facility] CHEM PANEL eGFR 111 10/13 Result Comment: The eGFR is calculated using the CKD-EPI formula. In most young, healthy individuals the eGFR will be >90 mL/ min/1.73m2. The eGFR declines with age. An eGFR of 60-89 may be normal in mL/min/1.73 /2016 some populations, particularly the elderly, for whom the CKD-EPI formula has not been extensively validated. Use of the eGFR is not recommended in the following populations: [address] Individuals with unstable creatinine concentrations, including patients and those with serious co-morbid conditions. Patients with extremes in muscle mass or diet. The data above are obtained from the National Kidney Disease Education Program (NKDEP) which additionally recommends that when the eGFR is used in patients with extremes of body mass index for purposes of drug dosing, the eGFR should be multiplied by the estimated BMI. CHEM PANEL Calcium Lvl 8.9 mg/dL 8.5 - 10.5 10/13 [facility] CHEM PANEL Total Protein 7.6 g/dL 6.4 - 8.4 10/13 [facility] CHEM PANEL Chloride Lvl 107 meq/L 95 - 109 10/13 [facility] CHEM PANEL CO2 25 meq/L 24 - 32 10/13 [facility] CHEM PANEL Potassium Lvl 3.6 meq/L 3.5 - 5.1 10/13 [facility] CHEM PANEL Creatinine 0.76 mg/dL 0.50 - 10/13 Lvl 1.40 [facility] CHEM PANEL Sodium Lvl 139 meq/L 135 - 145 10/13 [facility] CHEM PANEL Bili Total 0.5 mg/dL 0.2 - 1.3 10/13 [facility] CHEM PANEL Alk Phos 91 unit/L 39 - 136 10/13 [facility] CHEM PANEL ALT 34 unit/L 0 - 65 10/13 [facility] CHEM PANEL Albumin Lvl 3.8 g/dL 3.5 - 5.0 10/13 [facility] CHEM PANEL AST 14 unit/L 0 - 37 10/13 [facility] CHEM PANEL Glucose Lvl 87 mg/dL 70 - 99 10/13 [facility] CHEM PANEL BUN 11 mg/dL 7 - 10/13 [facility] CHEM PANEL Globulin 3.8 g/dL 2.7 - 4.2 10/13 [facility] CHEM PANEL A/G Ratio 1.0 0.7 - 1.6 10/13 [facility] CHEM PANEL AGAP 10.6 meq/L 10.0 - 10/13 20.0 [facility] CHEM PANEL B/C Ratio 14 6 - 25 10/13 [facility] ENDOCRINOLO S Preg Negative Negative 10/13 [place] *NA* [place] (10/13/16 6:30 PM) HEMATOLOGY Monocytes # 1.2 K/CMM 0.0 - 0.8 10/13 [facility] HEMATOLOGY Lymphocytes # 3.2 K/CMM 1.0 - 5.5 10/13 [facility] HEMATOLOGY Basophils # 0.0 K/CMM 0.0 - 0.2 10/13 [facility] HEMATOLOGY Eosinophils # 0.4 K/CMM 0.0 - 0.5 10/13 [facility] HEMATOLOGY Segs-Bands # 9.0 K/CMM 1.5 - 8.1 10/13 [facility] HEMATOLOGY Segs 64.9 % 45.0 - 10/13 MH 75.0 [facility] HEMATOLOGY Monocytes 8.6 % 2.0 - 12.0 10/13 [facility] HEMATOLOGY Lymphocytes 23.3 % 20.0 - 10/13 MH 40.0 [facility] HEMATOLOGY Basophils 0.4 % 0.0 - 1.0 10/13 [facility] HEMATOLOGY Eosinophils 2.8 % 0.0 - 4.0 10/13 [facility] HEMATOLOGY WBC 13.8 K/CMM 3.7 - 10.4 10/13 [facility] HEMATOLOGY MCH 27.7 pg 27.0 - 10/13 MH 31.0 [facility] HEMATOLOGY MCHC 32.7 g/dL 32.0 - 10/13 MH 36.0 [facility] HEMATOLOGY Platelet 247 K/CMM 133 - 450 10/13 [facility] HEMATOLOGY RDW 16.1 % 11.5 - 10/13 MH 14.5 [facility] HEMATOLOGY MCV 84.8 fL 80.0 - 10/13 98.0 [facility] HEMATOLOGY Hct 39.6 % 36.0 - 10/13 MH 48.0 [facility] HEMATOLOGY RBC 4.67 M/CMM 4.20 - 10/13 MH 5.40 /2016 [facility] HEMATOLOGY Hgb 12.9 g/dL 12.0 - 10/13 MH 16.0 [facility] HEMATOLOGY MPV 9.3 fL 7.4 - 10.4 10/13 [facility] URINE AND UA Blood Large Negative 10/13 STOOL [place] *ABN* [place] (10/13/16 6:30 PM) URINE AND UA Bili Negative Negative 10/13 STOOL [place] *NA* [place] (10/13/16 6:30 PM) URINE AND UA Ketones Negative Negative 10/13 [facility] mg/dL mg/dL [facility] URINE AND UA Glucose Negative Negative 10/13 [facility] mg/dL mg/dL [facility] URINE AND UA Turbidity Marked Clear 10/13 STOOL [facility] *ABN* [facility] (10/13/16 6:30 PM) URINE AND UA pH 5.0 5.0 - 8.0 10/13 [facility] URINE AND UA Color Yellow Yellow 10/13 STOOL [place] *NA* [facility] (10/13/16 6:30 PM) URINE AND UA Protein 30 mg/dL Negative 10/13 [facility] mg/dL [facility] URINE AND UA Spec Grav 1.029 <=1.030 10/13 STOOL [facility] URINE AND UA <=1.0 mg/dL 0.1 - 1.0 10/13 [facility] Urobilinogen [facility] URINE AND UA CaOx Terri Occasional None Seen 10/13 [facility] /HPF /HPF [facility] URINE AND UA Mucus Few /LPF None Seen 10/13 STOOL /LPF [facility] URINE AND UA Bacteria Occasional None Seen 10/13 [facility] /HPF /HPF [place] URINE AND UA WBC 16 /HPF 0 - 5 10/13 [place] URINE AND UA Leuk Est Moderate Negative 10/13 [place] *ABN* [facility] (10/13/16 6:30 PM) URINE AND UA RBC null 0 - 2 10/13 [place] URINE AND UA Sq Epi Many /LPF Few /LPF 10/13 STOOL [place] URINE AND UA Nitrite Negative Negative 10/13 [place] (10/13/16 6:30 PM) [facility] ED ED CLINICAL HISTORY: , - right abdominal pain 10/13 - Abdomen/Pel Abdomen/Pelvi /2016 - [place] vis IV s IV contrast [facility] contrast only CT only CT EXAM: CT abdomen and pelvis with contrast 10/13/2016 7:27 PM CDT Read by: Reggie Finney MD Dictated Date/time: 10/13/16 21:49 Electronically Signed by: Reggie Finney MD 10/13/16 21:52 FINAL REPORT COMPARISON: None. TECHNIQUE: Following the administration of intravenous contrast, Volumetric CT acquisition was performed through the abdomen and pelvis. Images in the axial, coronal, and sagittal planes were presented for interpretation. Delayed excretory phase images were also obtained. This examination was performed according to our departmental dose optimization protocol, which includes automated exposure control, adjustment of the mA and/or kV according to the patient size and/or use of iterative reconstruction technique. Radiation dose/contrast: 100mL / Omni 300 DLP: 1159.58 mgy-cm FINDINGS: The lung bases are clear. The visualized cardiomediastinal structures within normal limits. Within the upper abdomen, the liver and spleen are normal in size and morphology. The gallbladder is normal in appearance. There is no intra or extrahepatic biliary ductal dilation. The pancreas and adrenal glands are normal in appearance. The kidneys are normal in size bilaterally and the ureters are normal in course and caliber. There are no renal calculi, distal obstructing stones, or evidence of hydronephrosis/hydroureter. The stomach and small intestines are within normal limits without wall thickening or bowel dilation. The appendix is well-visualized and normal, best seen on axial image 61 anterior to the right psoas muscle. The colon is stool filled and otherwise unremarkable. Within the pelvis, the bladder and rectum are normal. The uterus and ovaries are age-appropriate with a small amount of free pelvic fluid. There are no pathologically enlarged inguinal, retroperitoneal, portacaval , or mesenteric lymph nodes. The soft tissue structures of the abdominal wall are normal in appearance. The visualized osseous structures within normal limits for the patient's age. The abdominal aorta and its primary branches are normal in course and caliber. IMPRESSION: 1. No acute intra-abdominal process. 2. Free pelvic fluid, likely physiologic in nature. Abdomen RUQ Abdomen RUQ CLINICAL HISTORY: , - RUQ abd pain 10/13 - US US /2017 - [facility] EXAM: Right upper quadrant ultrasound 10/13/2016 6:14 PM CDT Read by: Reggie Finney MD Dictated Date/time: 10/13/16 19:14 Electronically Signed by: Reggie Finney MD 10/13/16 19:15 FINAL REPORT Comparisons: none. TECHNIQUE: Utilizing a curved array transducer, real-time ultrasound evaluation of the right upper quadrant was performed. Color Doppler imaging was used to assess vascular flow. FINDINGS: The liver is normal in size and morphology measuring 14.0 cm in craniocaudal dimension. There is normal echogenicity of the hepatic parenchyma. There are no infiltrating or discrete hepatic masses ident ified. There is normal hepatopedal flow in the main portal vein. The gallbladder is well visualized and partially contracted. The gallbladder wall measures up to 2.1 mm in thickness. There are no shadowing gallstones. There is no pericholecystic fluid. The patient had a negative ultrasonographic Gustafson's sign. The common bile duct measures 3.4 mm in diameter. Limited images of the pancreas demonstrate no gross abnormalities. The aorta is incompletely evaluated an otherwise grossly normal in course and caliber. The right kidney is normal in size measuring 10.0 x 4.7 x 4.4 cm. The right renal cortex measures 1.2 cm in thickness. There are no shadowing right renal calculi or evidence of hydronephrosis. There are no infiltrating or discrete right renal masses. IMPRESSION: Contracted gallbladder, otherwise unremarkable right upper quadrant ultrasound. Ankle 3 Ankle 3 views Clinical history: - ankle pain, swelling. 09/18 - views DX /2016 - [place] : 1995. [place] Read by: Johny Eason MD Dictated Date/time: 09/18/16 19:30 Technique: 3 views of the left ankle. Electronically Signed by: Johny Eason MD 09/18/16 19:31 FINAL REPORT Findings: There is mild soft tissue swelling. No evidence for acute fracture. Normal articulations. Normal ankle mortise. No destructive lesion. Impression: 1. No acute skeletal findings. Vital Signs Vital Sign Value Date Comments Source Systolic (mm Hg) 100 10/14/2016 [facility] Diastolic (mm Hg) 61 10/14/2016 [facility] Heart Rate 69 10/14/2016 [facility] Systolic (mm Hg) 112 10/14/2016 [place] Diastolic (mm Hg) 62 10/14/2016 [facility] Heart Rate 62 10/14/2016 [facility] Respitory Rate 16 10/14/2016 [facility] Heart Rate 103 10/13/2016 [facility] Respitory Rate 20 10/13/2016 [facility] Temperature Oral (F) 98.7 F 10/13/2016 [facility] Systolic (mm Hg) 124 10/13/2016 [place] Diastolic (mm Hg) 78 10/13/2016 [place] Weight 82.682 10/13/2016 [facility] Respitory Rate 16 09/19/2016 [facility] Systolic (mm Hg) 99 09/19/2016 [place] Diastolic (mm Hg) 50 09/19/2016 [facility] Temperature Oral (F) 98.0 F 09/19/2016 [facility] Heart Rate 68 09/19/2016 [facility] Temperature Oral (F) 98.4 F 09/18/2016 [place] Weight 83 09/18/2016 [facility] Respitory Rate 17 09/18/2016 [facility] Heart Rate 82 09/18/2016 [facility] Systolic (mm Hg) 129 09/18/2016 [facility] Diastolic (mm Hg) 72 09/18/2016 [facility] Encounters Location Location Encounter Encounter Reason Attending ADM DC Status Source Details Type Number For Provider Date Date Visit [facility] Emergency [id number] Caleb 09/18 09/19 LATOYA Mullen /2016 [place] [facility] Emergency [id number] Emmanuel 10/13 10/14 LATOYA Oglesby /2016 [place] Procedures Procedure Code Date Perfomer Comments Source
[2017-09-17] MEDS ORDERED: METHYLPREDNISOLONE 40 MG INJ ONE (13:42)
[2017-09-17] MEDS ORDERED: ONDANSETRON 4 MG/2 ML VIAL ONE (13:42)
[2017-09-17] MEDS ORDERED: NA CHLORIDE 0.9% 500 ML ONE (13:42)
[2017-09-17] MEDS ORDERED: MORPHINE 4 MG/ML SYR ONE (13:42)
--- NOTE | 2017-09-17 14:49 | EDPHYS ---
Physician Documentation [facility] Name: Marita Dangelo Age: 22 yrs Sex: Female : 1995 Arrival Date: 09/17/2017 Time: 13:08 Bed 15 Private MD: None, None ED Physician Rd Case HPI: 09/17 13:35 This 22 yrs old Female presents to ER via Ambulatory with complaints of Mouth kav Swelling. 13:35 The patient presents with swelling. The problem is located in the lower left second kav molar. Onset: The symptoms/episode began/occurred acutely. Duration: The symptoms are continuous, and are unchanged since they started, and are steadily getting worse. Modifying factors: The symptoms are alleviated by nothing, the symptoms are aggravated by nothing. Associated signs and symptoms: Pertinent positives: pain, Pertinent negatives: chills, dysphagia, fever, nausea, vomiting. Severity of symptoms: At their worst the symptoms were severe, just prior to arrival, a " 10" out of "10". The patient has not experienced similar symptoms in the past. 13:37 Onset: The symptoms/episode began/occurred acutely, 1 day(s) ago. The patient has been kav recently seen by a physician: dentist. Patient is crying during examination; pain 10/10. 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 - Social history:: Smoking status: Patient uses tobacco products, smokes one-half pack cigarettes per day. - Ebola Screening: : Patient negative for fever greater than or equal to 101.5 degrees Fahrenheit, and additional compatible Ebola Virus Disease symptoms Patient denies exposure to infectious person Patient denies travel to an Ebola-affected area in the 21 days before illness onset No symptoms or risks identified at this time. - Family history:: not pertinent. - Hospitalizations: : No recent hospitalization is reported. ROS: 13:40 Constitutional: Negative for fever, chills, and weight loss, Eyes: Negative for injury, kav pain, redness, and discharge, Neck: Negative for injury, pain, and swelling, Cardiovascular: Negative for chest pain, palpitations, and edema, Respiratory: Negative for shortness of breath, cough, wheezing, and pleuritic chest pain, Abdomen/GI: Negative for abdominal pain, nausea, vomiting, diarrhea, and constipation, Back: Negative for injury and pain, : Negative for injury, bleeding, discharge, and swelling, MS/Extremity: Negative for injury and deformity, Skin: Negative for injury, rash, and discoloration, Neuro: Negative for headache, weakness, numbness, tingling, and seizure, Psych: Negative for depression, anxiety, suicide ideation, homicidal ideation, and hallucinations, Allergy/Immunology: Negative for hives, rash, and allergies, Endocrine: Negative for neck swelling, polydipsia, polyuria, polyphagia, and marked weight changes, Hematologic/Lymphatic: Negative for swollen nodes, abnormal bleeding, and unusual bruising. 13:40 ENT: Positive for dental pain, Teeth pain Negative for ear pain, Gum pain tinnitus, nasal discharge, rhinorrhea, sinus congestion, sinus pain, sore throat, difficulty swallowing, difficulty handling secretions, hoarseness. Exam: 13:40 Constitutional: This is a well developed, well nourished patient who is awake, alert, kav and in no acute distress. Head/Face: Normocephalic, atraumatic. Eyes: Pupils equal round and reactive to light, extra-ocular motions intact. Lids and lashes normal. Conjunctiva and sclera are non-icteric and not injected. Cornea within normal limits. Periorbital areas with no swelling, redness, or edema. Neck: Trachea midline, no thyromegaly or masses palpated, and no cervical lymphadenopathy. Supple, full range of motion without nuchal rigidity, or vertebral point tenderness. No Meningismus. Chest/axilla: Normal chest wall appearance and motion. Nontender with no deformity. No lesions are appreciated. Cardiovascular: Regular rate and rhythm with a normal S1 and S2. No gallops, murmurs, or rubs. Normal PMI, no JVD. No pulse deficits. Respiratory: Lungs have equal breath sounds bilaterally, clear to auscultation and percussion. No rales, rhonchi or wheezes noted. No increased work of breathing, no retractions or nasal flaring. Abdomen/GI: Soft, non-tender, with normal bowel sounds. No distension or tympany. No guarding or rebound. No evidence of tenderness throughout. Back: No spinal tenderness. No costovertebral tenderness. Full range of motion. Pelvic Exam: Normal external genitalia. Speculum exam with closed cervical os, no discharge or bleeding noted. Bimanual exam with normal adnexa, no adnexal or cervical motion tenderness. Normal uterus. Skin: Warm, dry with normal turgor. Normal color with no rashes, no lesions, and no evidence of cellulitis. MS/ Extremity: Pulses equal, no cyanosis. Neurovascular intact. Full, normal range of motion. Neuro: Awake and alert, GCS 15, oriented to person, place, time, and situation. Cranial nerves II-XII grossly intact. Motor strength 5/5 in all extremities. Sensory grossly intact. Cerebellar exam normal. Normal gait. Psych: Awake, alert, with orientation to person, place and time. Behavior, mood, and affect are within normal limits. 13:40 ENT: Dental exam: pain, that is severe, specifically in the lower left second molar (#18). Vital Signs: 13:12 BP 106 / 51; Pulse 83; Resp 16; Temp 98.0; Pulse Ox 100% on R/A; Weight 83.91 kg; aj Height 5 ft. 4 in. (162.56 cm); 14:59 BP 100 / 53; Pulse 82; Resp 18; Pulse Ox 100% on R/A; hj 13:12 Body Mass Index 31.75 (83.91 kg, 162.56 cm) aj MDM: 13:19 Medical screening is not applicable. kav Administered Medications: 03:35 Drug: NS 0.9% 500 ml Route: IV; Rate: bolus; Site: right antecubital; hj 14:52 Follow up: IV Status: Completed infusion hj 13:35 Drug: morphine 4 mg Route: IVP; Site: right antecubital; hj 14:52 Follow up: Response: No adverse reaction hj 13:35 Drug: Zofran 4 mg Route: IVP; Site: right antecubital; hj 14:52 Follow up: Response: No adverse reaction hj 13:35 Drug: SOLU-Medrol 60 mg Route: IVP; Site: right antecubital; hj 14:52 Follow up: Response: No adverse reaction hj 14:40 Drug: Augmentin 875 mg Route: PO; hj 14:51 Follow up: Response: No adverse reaction hj Disposition: 09/18 06:37 Co-signature as Attending Physician, Rd Case MD I agree with the assessment and [facility] plan of care. Disposition: 09/17/17 14:48 Discharged to Home. Impression: Dental root caries. - Condition is Stable. - Discharge Instructions: Root Canal Treatment. - Prescriptions for Augmentin 875- 125 mg Oral Tablet - take 1 tablet by ORAL route every 12 hours for 10 days; 20 tablet. Ibuprofen 800 mg Oral Tablet - take 1 tablet by ORAL route every 8 hours As needed take with food; 30 tablet. Tylenol- Codeine #3 300-30 mg Oral Tablet - take 2 tablet by ORAL route every 6 hours As needed; 30 tablet. - Medication Reconciliation Form, Thank You Letter, Antibiotic Education, Prescription Opioid Use form. - Follow up: Private Physician; When: 5 - 6 days; Reason: Recheck today's complaints, Continuance of care, Re-evaluation by your physician. Follow up: Gerry Irizarry DDS; When: 2 - 3 days; Reason: Recheck today's complaints, Continuance of care, Re-evaluation by your physician. - Problem is new. - Symptoms have improved. Signatures: Ana Blair, RN Rd Lawrence MD MD cha Vern, Katherine, Roscoe Ortiz RN KAUSHIK castanon Corrections: (The following items were deleted from the chart) 09/17 13:40 13:35 The patient has been recently seen by a physician: 2 day(s) ago, Dentistkenny 14:59 14:48 09/17/2017 14:48 Discharged to Home. Impression: Dental root caries. Condition is hj Stable. Forms are Medication Reconciliation Form, Thank You Letter, Antibiotic Education, Prescription Opioid Use. Follow up: Private Physician; When: 5 - 6 days; Reason: Recheck today's complaints, Continuance of care, Re-evaluation by your physician. Follow up: Gerry Irizarry; When: 2 - 3 days; Reason: Recheck today's complaints, Continuance of care, Re-evaluation by your physician. Problem is new. Symptoms have improved. kenny
--- NOTE | 2017-09-17 14:49 | ER ---
Nurse's Notes [facility] Name: Marita Dangelo Age: 22 yrs Sex: Female : 1995 Arrival Date: 09/17/2017 Time: 13:08 Bed 15 Private MD: None, None Diagnosis: Dental root caries Presentation: 09/17 13:11 Presenting complaint: Patient states: Left side facial swelling since this AM. Patient aj had 2 teeth pulled yesterday. Transition of care: patient was not received from another setting of care. Onset of symptoms was September 17, 2017. Risk Assessment: Do you want to hurt yourself or someone else? Patient reports no desire to harm self or others. Initial Sepsis Screen: Does the patient meet any 2 criteria? No. Patient's initial sepsis screen is negative. Does the patient have a suspected source of infection? No. Patient's initial sepsis screen is negative. Care prior to arrival: None. 13:11 Method Of Arrival: Ambulatory aj 13:11 Acuity: DASH 3 aj Triage Assessment: 13:12 General: Appears in no apparent distress. comfortable, Behavior is calm, cooperative, aj appropriate for age. Pain: Complains of pain in left zygomatic area and left cheek. EENT: Reports pain in left cheek. Neuro: Level of Consciousness is awake, alert, obeys commands, Oriented to person, place, time, situation, Appropriate for age. Respiratory: Airway is patent Respiratory effort is even, unlabored, Respiratory pattern is regular, symmetrical. Derm: Skin is intact, is healthy with good turgor, Skin is pink, warm \T\ dry. normal. 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 - Social history:: Smoking status: Patient uses tobacco products, smokes one-half pack cigarettes per day. - Ebola Screening: : Patient negative for fever greater than or equal to 101.5 degrees Fahrenheit, and additional compatible Ebola Virus Disease symptoms Patient denies exposure to infectious person Patient denies travel to an Ebola-affected area in the 21 days before illness onset No symptoms or risks identified at this time. - Family history:: not pertinent. - Hospitalizations: : No recent hospitalization is reported. Screenin:12 Abuse screen: Denies threats or abuse. Denies injuries from another. Nutritional hj screening: No deficits noted. Tuberculosis screening: No symptoms or risk factors identified. Fall Risk None identified. Assessment: 13:12 General: Appears in no apparent distress. uncomfortable, Behavior is calm, cooperative, hj appropriate for age. Pain: Complains of pain in left cheek. Neuro: Level of Consciousness is awake, alert, obeys commands, Oriented to person, place, time, situation, Appropriate for age. Cardiovascular: Capillary refill < 3 seconds Patient's skin is warm and dry. Respiratory: Airway is patent Respiratory effort is even, unlabored, Respiratory pattern is regular, symmetrical. GI: No signs and/or symptoms were reported involving the gastrointestinal system. : No signs and/or symptoms were reported regarding the genitourinary system. EENT: Reports pain swelling on L cheek. Derm: No signs and/or symptoms reported regarding the dermatologic system. Musculoskeletal: No signs and/or symptoms reported regarding the musculoskeletal system. Vital Signs: 13:12 BP 106 / 51; Pulse 83; Resp 16; Temp 98.0; Pulse Ox 100% on R/A; Weight 83.91 kg; aj Height 5 ft. 4 in. (162.56 cm); 14:59 BP 100 / 53; Pulse 82; Resp 18; Pulse Ox 100% on R/A; hj 13:12 Body Mass Index 31.75 (83.91 kg, 162.56 cm) ED Course: 13:08 Patient arrived in ED. mr 13:08 None, None is Private Physician. mr 13:12 Triage completed. aj 13:12 Arm band placed on left wrist. Patient placed in an exam room. aj 13:12 Patient has correct armband on for positive identification. Bed in low position. Call light in reach. Side rails up X 1. 13:14 Roscoe Ochoa, KAUSHIK is Primary Nurse. hj 13:17 Rebeca Fitzpatrick FNP is PHCP. kav 13:19 Rd Case MD is Attending Physician. kav 13:52 Inserted saline lock: 22 gauge in right antecubital area, using aseptic technique. hj 14:40 Gerry Irizarry DDS is Referral Physician. ka 14:58 Assist provider with bone marrow aspiration. IV discontinued, intact, bleeding hj controlled, No redness/swelling at site. Pressure dressing applied. Administered Medications: 03:35 Drug: NS 0.9% 500 ml Route: IV; Rate: bolus; Site: right antecubital; hj 14:52 Follow up: IV Status: Completed infusion hj 13:35 Drug: morphine 4 mg Route: IVP; Site: right antecubital; hj 14:52 Follow up: Response: No adverse reaction hj 13:35 Drug: Zofran 4 mg Route: IVP; Site: right antecubital; hj 14:52 Follow up: Response: No adverse reaction hj 13:35 Drug: SOLU-Medrol 60 mg Route: IVP; Site: right antecubital; hj 14:52 Follow up: Response: No adverse reaction hj 14:40 Drug: Augmentin 875 mg Route: PO; hj 14:51 Follow up: Response: No adverse reaction hj Outcome: 14:48 Discharge ordered by MD. kav 14:58 Discharged to home ambulatory. hj 14:58 Condition: stable 14:58 Discharge instructions given to patient, Instructed on discharge instructions, follow up and referral plans. medication usage, Demonstrated understanding of instructions, follow-up care, medications, Prescriptions given X 3. 14:59 Patient left the ED. Signatures: Ana Blair, RN RN Rebeca Guzman, EARLY CHILDHOOD TEACHER ASSISTANT EARLY CHILDHOOD TEACHER ASSISTANT Arelis Pierre Henry, RN RN hj
[2017-09-17] MEDS ORDERED: AMOX/K CLAV 875 MG TAB ONE (14:52)
== END 2017-09-17 14:59 | disposition home or self-care (01) ==
LOC: ER 13:05
DX: K02.7 Dental root caries (principal); Z88.1 Allergy status to other antibiotic agents; F17.210 Nicotine dependence, cigarettes, uncomplicated
CPT/HCPCS: 96361; 96374; 96375; 99284; J2405; J2920

== ENCOUNTER 2017-10-02 12:13 | Emergency (ER) | payer BC, SELFPAY ==
--- OUTSIDE RECORDS SUMMARY | 2017-10-02 12:16 | XMS REPORT ---
:1995 [facility] Address [address] [place] [address] Care Team Providers Name Role Phone Unavailable [...] Comments GONADOTROPIN, CHORIONIC (HCG) QUANT (BEAKER) (test jffe=618) < mIU/mL 0-10 Non- Females: <10 mIU/mL Females: Gestation Age Reference Range(mIU/mL) 0.2-1 Week 5-50 1-2 Weeks 50-500 2-3 Weeks 100-5,000 3-4Weeks 500-10,000 4 -5 Weeks 1,000-50,000 5-6 Weeks 10,000-100,000 6-8 Weeks 15,000-200,000 2-3 Months 10,000-100,000BASIC METABOLIC [id number] 03:36:00 Test Item Value Reference Range Comments SODIUM (BEAKER) (test 139 meq/L 136-145 movv=557) POTASSIUM (BEAKER) (test 4.0 meq/L 3.5-5.1 gmbc=315) CHLORIDE (BEAKER) (test 106 meq/L 98-107 jdam=014) CO2 (BEAKER) (test 23 meq/L 22-29 wqct=604) BLOOD UREA NITROGEN 8 mg/dL 7-21 (BEAKER) (test tbpe=788) CREATININE (BEAKER) (test 0.78 mg/dL 0.57-1.25 gclb=084) GLUCOSE RANDOM (BEAKER) 95 mg/dL 70-105 (test kyit=852) CALCIUM (BEAKER) (test 9.7 mg/dL 8.4-10.2 hcyd=982) EGFR (BEAKER) (test 92 mL/min/1.73 sq m ESTIMATED GFR IS NOT dqnd=5788) ACCURATE CREATININE CLEARANCE IN PREDICTING GLOMERULAR FILTRATION RATE. ESTIMATED GFR IS NOT APPLICABLE FOR DIALYSIS PATIENTS. CBC W/PLT COUNT & AUTO [id number] 02:53:00 Test Item Value Reference Range Comments WHITE BLOOD CELL COUNT (BEAKER) (test hgwn=638) 10.0 K/ L 3.5-10.5 RED BLOOD CELL COUNT (BEAKER) (test hgmx=603) 4.50 M/ L 3.93-5.22 HEMOGLOBIN (BEAKER) (test dslo=606) 13.2 GM/DL 11.2-15.7 HEMATOCRIT (BEAKER) (test pbsf=085) 39.9 % 34.1-44.9 MEAN CORPUSCULAR VOLUME (BEAKER) (test mnus=190) 88.7 fL 79.4-94.8 MEAN CORPUSCULAR HEMOGLOBIN (BEAKER) (test 29.3 pg 25.6-32.2 htpk=029) MEAN CORPUSCULAR HEMOGLOBIN CONC (BEAKER) (test 33.1 GM/DL 32.2-35.5 fwdv=489) RED CELL DISTRIBUTION WIDTH (BEAKER) (test 13.5 % 11.7-14.4 ylok=096) PLATELET COUNT (BEAKER) (test oipd=101) 227 K/CU MM 150-450 MEAN PLATELET VOLUME (BEAKER) (test jlos=798) 10.5 fL 9.4-12.3 NUCLEATED RED BLOOD CELLS (BEAKER) (test 0 /100 WBC 0-0 qjfa=339) NEUTROPHILS RELATIVE PERCENT (BEAKER) (test 46 % vgpj=725) LYMPHOCYTES RELATIVE PERCENT (BEAKER) (test 35 % pwmr=184) MONOCYTES RELATIVE PERCENT (BEAKER) (test 10 % nikp=375) EOSINOPHILS RELATIVE PERCENT (BEAKER) (test 8 % iowc=382) BASOPHILS RELATIVE PERCENT (BEAKER) (test 1 % ffao=671) NEUTROPHILS ABSOLUTE COUNT (BEAKER) (test 4.60 K/ L 1.56-6.13 otpl=306) LYMPHOCYTES ABSOLUTE COUNT (BEAKER) (test 3.51 K/ L 1.18-3.74 pmlx=761) MONOCYTES ABSOLUTE COUNT (BEAKER) (test 0.98 K/ L 0.24-0.36 aoxu=154) EOSINOPHILS ABSOLUTE COUNT (BEAKER) (test 0.79 K/ L 0.04-0.36 ntyr=531) BASOPHILS ABSOLUTE COUNT (BEAKER) (test 0.07 K/ L 0.01-0.08 mtef=738) IMMATURE GRANULOCYTES-RELATIVE PERCENT (BEAKER) 0 % 0-1 (test nlut=6036) URINALYSIS W/ [id number] 22:40:00 Test Item Value Reference Range Comments COLOR (BEAKER) (test eamo=499) [place] CLARITY (BEAKER) (test holq=653) Hazy SPECIFIC GRAVITY UA (BEAKER) (test 1.021 1.001-1.035 hroz=528) PH UA (BEAKER) (test vpaq=146) 6.5 5.0-8.0 PROTEIN UA (BEAKER) (test nqqm=591) 50 mg/dL Negative GLUCOSE UA (BEAKER) (test yfhz=856) Negative Negative KETONES UA (BEAKER) (test hvay=333) Trace Negative BILIRUBIN UA (BEAKER) (test vhtj=604) Negative Negative BLOOD UA (BEAKER) (test cbzr=764) Large Negative NITRITE UA (BEAKER) (test pqhu=061) Negative Negative LEUKOCYTE ESTERASE UA (BEAKER) (test Moderate Negative rthk=047) UROBILINOGEN UA (BEAKER) (test ymyh=055) 4.0 mg/dL 0.2-1.0 RBC UA (BEAKER) (test oflg=961) > /HPF WBC UA (BEAKER) (test gvot=488) 23 /HPF MUCUS (BEAKER) (test oqlr=1181) Many SQUAMOUS EPITHELIAL (BEAKER) (test 5 /HPF jgyg=957) SOURCE(BEAKER) (test qiyp=6271) Urine, Clean Catch SCREEN, [id number] 22:34:00 Test Item Value Reference Range Comments TEST URINE (BEAKER) (test inep=585) Negative
--- OUTSIDE RECORDS SUMMARY | 2017-10-02 12:16 | XMS REPORT | Clinical Summary ---
:1995 Author Organization [facility] Address [address] [place] [address] Phone Care Team Providers Name Role Phone Unavailable Primary Care Provider Unavailable Allergies Active Allergy Reactions Severity Noted Date Comments Ciprofloxacin 02/19/2017 Latex 02/19/2017 Current Medications Prescription Sig. Disp. Refills Start Date End Date Status jybdcyxrg-HL-TO-acetaminophen Take by mouth. Active 33-22-12-650 mg PPkS Active Problems Not on file Encounters Date Type Specialty Care Team Description 02/20/2017 Emergency Emergency Medicine after 10/01/2016 Social History Tobacco Use Types Packs/Day Years Used Date Current Every Day Smoker Smokeless Tobacco: Never Used Alcohol Use Drinks/Week oz/Week Comments Yes Sex Assigned at Date Recorded Not on file Last Filed Vital Signs Vital Sign Reading Time Taken Blood Pressure 136/62 02/20/2017 3:29 AM [employer]ACLE [employer]PLICATION DEVELOPER Pulse 82 02/20/2017 3:29 AM [employer] APPLICATION DEVELOPER Temperature 36.6 C (97.8 F) 02/20/2017 3:29 AM [employer] APPLICATION DEVELOPER Respiratory Rate 18 02/20/2017 3:29 AM [employer]AC[employer]CIAL APPLICATION DEVELOPER Oxygen Saturation 100% 02/20/2017 3:29 AM [employer]AC[employer] APPLICATION DEVELOPER Inhaled Oxygen Concentration - - Weight 77.1 kg (170 lb) 02/19/2017 9:53 PM [employer] APPLICATION DEVELOPER Height 162.6 cm (5' 4") 02/19/2017 9:53 PM [employer] APPLICATION DEVELOPER Body Mass Index 29.18 02/19/2017 9:53 PM [employer] APPLICATION DEVELOPER Plan of Treatment Not on file Results [...] % Specimen Performing Laboratory Blood - [place], [address] [address] CBC with platelet count + automated diff (02/20/2017 2:38 AM) Specimen Performing Laboratory Blood Narrative The following orders were created for panel order CBC with platelet count + automated diff. Procedure Abnormality Status --------- ------ CBC with platelet count ...[[id number]]AbnormalFinal result Please view results for these tests on the individual orders. hCG, quantitative, (02/20/2017 2:38 AM) Component Value Ref Range hCG Quant <1 0 - 10 mIU/mL Specimen Performing Laboratory Blood - [place], [address] [address] Narrative Non- Females: <10 mIU/mL Females: Gestation AgeReference Range(mIU/mL) 0.2-1 Week5-50 1-2 [id number] 2-3 Weeks 100-5,000 3-4 Weeks 500-10,000 4-5 [...] Specimen Performing Laboratory Blood - [place], Left [address] [address] screen, urine (02/19/2017 9:57 PM) Component Value Ref Range Preg Test, Ur Negative Specimen Performing Laboratory Urine - Urine, Clean Catch [address] [address] Urinalysis w/Microscopic - Clean Catch (02/19/2017 9:57 PM) Component Value Ref Range Color, UA [place] Clarity, UA Hazy Specific [place], UA 1.021 1.001 - 1.035 pH, UA [...] Performing Laboratory Urine - Urine, Clean Catch [address] [address] after 10/01/2016
--- OUTSIDE RECORDS SUMMARY | 2017-10-02 12:16 | XMS REPORT | Continuity of Care Document ---
[...] left [place] Ankle sprain Active Problem 10/16/2016 [place] Medications Medication Details Route Status Patient Ordering Order Source Instructions Provider Date Macrodantin 100 mg, 1 Inactive [place] cap, Route: 017 [place] PO, Drug form: CAP, ONCE, Dosing Weight 82.682, kg, Priority: STAT, Start date: 10/13/16 22:05:00 CDT, Stop date: 10/13/16 22:05:00 CDTNotes: Not recommended for patients with CrCl nitrofurantoin 100 mg=1 cap, Active [place] macrocrystals PO, QID, X 7 017 [place] 100 mg oral day, # 28 capsule cap, 0 (Macrodantin) Refill(s) Dilaudid 1 mg, Route: Inactive [place] IVP, ONCE, 017 [place] Dosing Weight 82.682, kg, Priority: STAT, Start date: 10/13/16 19:59:00 CDT, Stop date: 10/13/16 19:59:00 CDT Ketorolac 30 mg, Route: Inactive [place] IVP, ONCE, 0[place] Dosing Weight 82.682, kg, Priority: STAT, Start date: 10/13/16 18:14:00 CDT, Stop date: 10/13/16 18:14:00 CDT Ondansetron 4 mg, Route: Inactive [place] IVP, ONCE, 017 [place] Dosing Weight 82.682, kg, Priority: STAT, Start date: 10/13/16 18:14:00 CDT, Stop date: 10/13/16 18:14:00 CDT Saline Flush 10 mL, Route: Inactive [place] 0.9% IVP, Drug 017 [place] Form: INJ, Dosing Weight 82.682, kg, PRN, PRN Line Flush, Start date: 10/13/16 18:14:00 CDT, Duration: 30 day, Stop date: 11/12/16 18:13:00 CDTNotes: (Same as: BD Posiflush) Motrin 800 mg 800 mg=1 tab, Active [place] oral tablet PO, Q8H, PRN 017 [place] Pain, Take with food, X 10 day, # 30 tab, 0 Refill(s) Ibuprofen 600 mg, Inactive [place] Route: PO, 017 [place] Drug form: TAB, ONCE, Dosing Weight 83, kg, Priority: STAT, Start date: 09/18/16 20:01:00 CDT, Stop date: 09/18/16 20:01:00 CDT Allergies, Adverse Reactions, Alerts Substance Category Reaction Severity Reaction Status Date Comments Source type Reported ciprofloxacin Assertion Drug Active allergy [place] Immunizations Immunization Date Given Site Status Last Updated Comments Source Results Order Name Results Value Reference Date Interpretation Comments Source Range CHEM PANEL Lipase Lvl 78 unit/L 73 - 393 10/13 [place] CHEM PANEL eGFR 111 10/13 Result Comment: The eGFR is calculated using the CKD-EPI formula. In most young, healthy individuals the eGFR will be >90 mL/ min/1.73m2. The eGFR declines with age. An eGFR of 60-89 may be normal in mL/min/1.73 some populations, particularly the elderly, for whom the CKD-EPI formula has not been extensively validated. Use of the eGFR is not recommended in the following populations: [place] [address] Individuals with unstable creatinine concentrations, including [...] Lvl 8.9 mg/dL 8.5 - 10.5 10/13 [place] CHEM PANEL Total Protein 7.6 g/dL 6.4 - 8.4 10/13 [place] CHEM PANEL Chloride Lvl 107 meq/L 95 - 109 10/13 [place] CHEM PANEL CO2 25 meq/L 24 - 32 10/13 [place] CHEM PANEL Potassium Lvl 3.6 meq/L 3.5 - 5.1 10/13 [place] CHEM PANEL Creatinine 0.76 mg/dL 0.50 - 10/13 [facility] Lvl 1.40 /2016 [place] CHEM PANEL Sodium Lvl 139 meq/L 135 - 145 10/13 [place] CHEM PANEL Bili Total 0.5 mg/dL 0.2 - 1.3 10/13 [place] CHEM PANEL Alk Phos 91 unit/L 39 - 136 10/13 [place] CHEM PANEL ALT 34 unit/L 0 - 65 10/13 [place] CHEM PANEL Albumin Lvl 3.8 g/dL 3.5 - 5.0 10/13 [place] CHEM PANEL AST 14 unit/L 0 - 37 10/13 [place] CHEM PANEL Glucose Lvl 87 mg/dL 70 - 99 10/13 [place] CHEM PANEL BUN 11 mg/dL 7 - 10/13 [place] CHEM PANEL Globulin 3.8 g/dL 2.7 - 4.2 10/13 [place] CHEM PANEL A/G Ratio 1.0 0.7 - 1.6 10/13 [place] CHEM PANEL AGAP 10.6 meq/L 10.0 - 10/13 20.0 [place] CHEM PANEL B/C Ratio 14 6 - 25 10/13 [place] ENDOCRINOLO S Preg Negative Negative 10/13 [place] *NA* [place] (10/13/16 6:30 PM) HEMATOLOGY Monocytes # 1.2 K/CMM 0.0 - 0.8 10/13 [place] HEMATOLOGY Lymphocytes # 3.2 K/CMM 1.0 - 5.5 10/13 [place] HEMATOLOGY Basophils # 0.0 K/CMM 0.0 - 0.2 10/13 [place] HEMATOLOGY Eosinophils # 0.4 K/CMM 0.0 - 0.5 10/13 [place] HEMATOLOGY Segs-Bands # 9.0 K/CMM 1.5 - 8.1 10/13 [place] HEMATOLOGY Segs 64.9 % 45.0 - 10/13 MH 75.0 /2016 [place] HEMATOLOGY Monocytes 8.6 % 2.0 - 12.0 10/13 [place] HEMATOLOGY Lymphocytes 23.3 % 20.0 - 10/13 MH 40.0 [place] HEMATOLOGY Basophils 0.4 % 0.0 - 1.0 10/13 [place] HEMATOLOGY Eosinophils 2.8 % 0.0 - 4.0 10/13 [place] HEMATOLOGY WBC 13.8 K/CMM 3.7 - 10.4 10/13 [place] HEMATOLOGY MCH 27.7 pg 27.0 - 10/13 MH 31.0 [place] HEMATOLOGY MCHC 32.7 g/dL 32.0 - 10/13 MH 36.0 /2016 [place] HEMATOLOGY Platelet 247 K/CMM 133 - 450 10/13 [place] HEMATOLOGY RDW 16.1 % 11.5 - 10/13 MH 14.5 /2016 [place] HEMATOLOGY MCV 84.8 fL 80.0 - 10/13 MH 98.0 [place] HEMATOLOGY Hct 39.6 % 36.0 - 10/13 MH 48.0 [place] HEMATOLOGY RBC 4.67 M/CMM 4.20 - 10/13 MH 5.40 /2016 [place] HEMATOLOGY Hgb 12.9 g/dL 12.0 - 10/13 16.0 [place] HEMATOLOGY MPV 9.3 fL 7.4 - 10.4 10/13 [place] URINE AND UA Blood Large Negative 10/13 [facility] [place] *ABN* [place] (10/13/16 6:30 PM) URINE AND UA Bili Negative Negative 10/13 [facility] [place] *NA* [place] (10/13/16 6:30 PM) URINE AND UA Ketones Negative Negative 10/13 [facility] mg/dL mg/dL [place] URINE AND UA Glucose Negative Negative 10/13 [facility] mg/dL mg/dL [place] URINE AND UA Turbidity Marked Clear 10/13 [facility] [place] *ABN* [place] (10/13/16 6:30 PM) URINE AND UA pH 5.0 5.0 - 8.0 10/13 [facility] [place] URINE AND UA Color Yellow Yellow 10/13 [place] *NA* [facility] (10/13/16 6:30 PM) URINE AND UA Protein 30 mg/dL Negative 10/13 [place] mg/dL [place] URINE AND UA Spec Grav 1.029 <=1.030 10/13 [place] URINE AND UA <=1.0 mg/dL 0.1 - 1.0 10/13 [facility] Urobilinogen [place] URINE AND UA CaOx Terri Occasional None Seen 10/13 [place] /HPF /HPF [place] URINE AND UA Mucus Few /LPF None Seen 10/13 [facility] /LPF [place] URINE AND UA Bacteria Occasional None Seen 10/13 [facility] /HPF /HPF [place] URINE AND UA WBC 16 /HPF 0 - 5 10/13 [place] URINE AND UA Leuk Est Moderate Negative 10/13 [place] *ABN* [facility] (10/13/16 6:30 PM) URINE AND UA RBC null 0 - 2 10/13 [place] URINE AND UA Sq Epi Many /LPF Few /LPF 10/13 [place] URINE AND UA Nitrite Negative Negative 10/13 [place] (10/13/16 6:30 PM) [facility] ED ED CLINICAL HISTORY: , - right abdominal pain 10/13 - Abdomen/Pel Abdomen/Pelvi /2016 - [place] vis IV s IV contrast [facility] contrast only CT only CT EXAM: CT [...] RUQ abd pain 10/13 - US US /2016 - [place] EXAM: Right upper quadrant ultrasound 10/13/2016 6:14 [...] Comments Source Systolic (mm Hg) 100 10/14/2016 [place] Diastolic (mm Hg) 61 10/14/2016 [place] Heart Rate 69 10/14/2016 [place] Systolic (mm Hg) 112 10/14/2016 [facility] [place] Diastolic (mm Hg) 62 10/14/2016 [place] Heart Rate 62 10/14/2016 [place] Respitory Rate 16 10/14/2016 [place] Heart Rate 103 10/13/2016 [place] Respitory Rate 20 10/13/2016 [place] Temperature Oral (F) 98.7 F 10/13/2016 [facility] [place] Systolic (mm Hg) 124 10/13/2016 [facility] [place] Diastolic (mm Hg) 78 10/13/2016 [place] Weight 82.682 10/13/2016 [place] Respitory Rate 16 09/19/2016 [facility] [place] Systolic (mm Hg) 99 09/19/2016 [facility] [place] Diastolic (mm Hg) 50 09/19/2016 [place] Temperature Oral (F) 98.0 F 09/19/2016 [place] Heart Rate 68 09/19/2016 [place] Temperature Oral (F) 98.4 F 09/18/2016 [place] Weight 83 09/18/2016 [place] Respitory Rate 17 09/18/2016 [place] Heart Rate 82 09/18/2016 [place] Systolic (mm Hg) 129 09/18/2016 [place] Diastolic (mm Hg) 72 09/18/2016 [place] Encounters Location Location Encounter Encounter Reason Attending ADM DC Status Source Details Type Number For Provider Date Date Visit [facility] Emergency [id number] Caleb 09/18 09/19 Vinay Mullen /2016 [place] [facility] Emergency [id number] Emmanuel 10/13 10/14 Vinay Oglesby /2016 [place] Procedures Procedure Code Date Perfomer Comments Source
[2017-10-02] MEDS ORDERED: NA CHLORIDE 0.9% 1,000 ML ONE (13:51)
[2017-10-02] MEDS ORDERED: ONDANSETRON 4 MG/2 ML VIAL ONE (13:51)
[2017-10-02 14:08] LABS: Absolute Lymphocytes (CBC) 2.5 K/uL (0.7-4.9); Absolute Monocytes 0.9 K/uL (0.1-1.3); Absolute Neutrophil 7.3 K/uL (1.8-8.0); Basophils % 0.6 % (0-1.3); Eosinophils % 3.7 % (0-4.4); Lymphocytes % 22.6 % (15.3-44.8); MPV 9.2 fL (7.6-11.3); Monocytes % 7.9 % (3.3-12.3)
[2017-10-02 14:19] LABS: Potassium 3.8 mmol/L (3.5-5.1)
--- NOTE | 2017-10-02 15:06 | EKG ---
Test Date: 2017-10-02 Test Time: 13:41:08 Therapy Manager: AMBAR MEASUREMENT RESULTS: Intervals: Rate: 70 WA: 154 QRSD: 86 QT: 380 QTc: 410 [place]: P: 12 WA: 154 QRS: 94 T: -22 INTERPRETIVE STATEMENTS: Sinus rhythm with marked sinus arrhythmia Rightward axis ST & T wave abnormality, consider inferior ischemia Abnormal ECG No previous ECG available for comparison Electronically Signed On 10-02-17 15:06:05 CDT by Gilson Wills
[2017-10-02 15:41] LABS: Barbiturates NEGATIVE (NEGATIVE); Benzodiazepines NEGATIVE (NEGATIVE); Cocaine NEGATIVE (NEGATIVE); METHAMPHETAM NEGATIVE (NEGATIVE); Methadone NEGATIVE (NEGATIVE); Opiates NEGATIVE (NEGATIVE); Phencyclidine NEGATIVE (NEGATIVE)
[2017-10-02 15:43] LABS: THC Cannibis POSITIVE (NEGATIVE)
[2017-10-02 15:51] LABS: Urine Blood TRACE (NEG); Urine Glucose NEGATIVE (NEG); Urine Protein NEGATIVE (NEG)
--- NOTE | 2017-10-02 16:31 | ER ---
Nurse's Notes [facility] Name: Marita Dangelo Age: 22 yrs Sex: Female : 1995 Arrival Date: 10/02/2017 Time: 12:19 Bed 15 Private MD: None, None Diagnosis: Unspecified adverse effect of drug or medicament;Cannabis abuse Presentation: 10/02 12:22 Presenting complaint: Patient states: "I took some Sudafed because I thought I had a aj1 sinus headache and 30-45 minutes after I took it I felt nauseous, dizzy and hot. My head hurts and my back hurts, my toes feel like they are broken off. I went to urgent care and they told me to come to the ER" Reports dizziness, pain to the right side of the neck that radiates to the right side of the face, blurred vision. Transition of care: patient was not received from another setting of care. Onset of symptoms was October 01, 2017. Risk Assessment: Do you want to hurt yourself or someone else? Patient reports no desire to harm self or others. Initial Sepsis Screen: Does the patient meet any 2 criteria? No. Patient's initial sepsis screen is negative. Does the patient have a suspected source of infection? No. Patient's initial sepsis screen is negative. Care prior to arrival: None. 12:22 Method Of Arrival: Ambulatory aj1 12:22 Acuity: DASH 3 aj1 Triage Assessment: 12:24 General: Appears in no apparent distress. uncomfortable, Behavior is calm, cooperative, aj1 appropriate for age. Pain: Complains of pain in top of head, right eye, right cheek, right ear, right amish, right jaw, low back area, left hip, right hip, right foot, left foot and right side of neck Pain currently is 9 out of 10 on a pain scale. Quality of pain is described as stiffness. EENT: Reports nasal congestion nasal discharge sinus pressure, ear pain. Neuro: Level of Consciousness is awake, alert, obeys commands, Moves all extremities. Full function Gait is steady, Speech is normal, Facial symmetry appears normal, Reports blurred vision dizziness, headache weakness. Cardiovascular: Patient's skin is warm and dry. Respiratory: Airway is patent Respiratory effort is even, unlabored, Respiratory pattern is regular, symmetrical. GI: Reports diarrhea, nausea, Patient currently denies vomiting. 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 - Social history:: Smoking status: Patient uses tobacco products, smokes one-half pack cigarettes per day. - Ebola Screening: : Patient denies travel to an Ebola-affected area in the 21 days before illness onset. Screenin:12 Abuse screen: Denies threats or abuse. Nutritional screening: No deficits noted. tw2 Tuberculosis screening: No symptoms or risk factors identified. Fall Risk None identified. Assessment: 13:00 General: Appears in no apparent distress. Behavior is agitated. Pain: Complains of pain tw2 in abdomen. Neuro: Level of Consciousness is awake, alert, obeys commands, Oriented to person, place, time, situation. Cardiovascular: Denies chest pain, shortness of breath, Heart tones S1 S2 Patient's skin is warm and dry. Respiratory: Airway is patent Respiratory effort is even, unlabored, Respiratory pattern is regular, symmetrical, Breath sounds are clear bilaterally. GI: Abdomen is round non-distended, Bowel sounds present X 4 quads. Reports lower abdominal pain, upper abdominal pain, nausea. : No signs and/or symptoms were reported regarding the genitourinary system. EENT: No signs and/or symptoms were reported regarding the EENT system. Derm: Skin is intact, is healthy with good turgor, Skin temperature is warm. Musculoskeletal: Range of motion: intact in all extremities. 13:23 Reassessment: pt standing in the doorway of exam room, pt reports " is a Doctor going sg to come see me or am I going to sit back here longer than in the lobby and not be seen, Im in pain." [employer] notified. 13:25 Reassessment: pt updated that the provider is on his way, pt stated understanding. sg 14:10 Reassessment: Patient appears in no apparent distress at this time. No changes from tw2 previously documented assessment. Patient and/or family updated on plan of care and expected duration. Pain level reassessed. Patient is alert, oriented x 3, equal unlabored respirations, skin warm/dry/pink. 15:22 Reassessment: Patient appears in no apparent distress at this time. No changes from tw2 previously documented assessment. Patient and/or family updated on plan of care and expected duration. Pain level reassessed. Patient is alert, oriented x 3, equal unlabored respirations, skin warm/dry/pink. 16:05 Reassessment: Patient appears in no apparent distress at this time. No changes from tw2 previously documented assessment. Patient and/or family updated on plan of care and expected duration. Pain level reassessed. Patient is alert, oriented x 3, equal unlabored respirations, skin warm/dry/pink. 17:06 Reassessment: Patient appears in no apparent distress at this time. No changes from tw2 previously documented assessment. Patient and/or family updated on plan of care and expected duration. Pain level reassessed. Patient is alert, oriented x 3, equal unlabored respirations, skin warm/dry/pink. Vital Signs: 12:24 BP 115 / 81; Pulse 92; Resp 18; Temp 97.3(TE); Pulse Ox 100% on R/A; Weight 81.65 kg aj1 (R); Height 5 ft. 4 in. (162.56 cm) (R); Pain 8/10; 14:10 BP 92 / 79; Pulse 72; Resp 18; Pulse Ox 100% on R/A; tw2 15:21 BP 109 / 73; Pulse 55; Resp 17; Pulse Ox 100% on R/A; tw2 16:05 BP 106 / 56; Pulse 77; Resp 17; Pulse Ox 100% on R/A; tw2 17:05 BP 109 / 75; Pulse 77; Resp 17; Pulse Ox 97% on R/A; tw2 12:24 Body Mass Index 30.90 (81.65 kg, 162.56 cm) aj1 ED Course: 12:19 Patient arrived in ED. mr 12:19 None, None is Private Physician. mr 12:24 Triage completed. aj1 12:24 Arm band placed on Patient placed in waiting room, Patient notified of wait time. aj1 12:44 Fiona Omer, KAUSHIK is Primary Nurse. tw2 13:00 Call light in reach. Pulse ox on. NIBP on. tw2 13:09 Chencho Underwood NP is PHCP. pm1 13:09 Swapnil South MD is Attending Physician. pm1 13:47 EKG done, by pilot plant technician. reviewed by Chencho Underwood NP. sm3 13:50 Inserted saline lock: 22 gauge in right antecubital area, using aseptic technique. tw2 Blood collected. 17:06 No provider procedures requiring assistance completed. IV discontinued, intact, tw2 bleeding controlled, No redness/swelling at site. Pressure dressing applied. Administered Medications: 13:55 Drug: Zofran 4 mg Route: IVP; Site: right antecubital; tw2 16:30 Follow up: Response: No adverse reaction; Nausea is decreased tw2 13:59 Drug: NS 0.9% 1000 ml Route: IV; Rate: 1000 ml; Site: right antecubital; tw2 15:30 Follow up: Response: No adverse reaction; IV Status: Completed infusion; IV Intake: tw2 1000ml Intake: 15:30 IV: 1000ml; Total: 1000ml. tw2 Outcome: 16:31 Discharge ordered by MD. pm1 17:06 Discharged to home ambulatory. tw2 17:06 Condition: stable 17:06 Discharge instructions given to patient, Instructed on discharge instructions, follow up and referral plans. Demonstrated understanding of instructions, follow-up care. 17:06 Patient left the ED. tw2 Signatures: Suzy Hicks RN RN aj1 Stevan Painter RN RN sg Rivera, Maria mr Marinas, Patrick, NP [employer] pm1 Fiona Omer RN RN tw2 Veroncia Del Toro 3 Corrections: (The following items were deleted from the chart) 17:05 16:05 BP 106 / 56; Pulse 17bpm; Pulse Ox 100% RA; tw2 tw2
--- NOTE | 2017-10-02 16:31 | EDPHYS ---
Physician Documentation [facility] Name: Marita Dangelo Age: 22 yrs Sex: Female : 1995 Arrival Date: 10/02/2017 Time: 12:19 Bed 15 Private MD: None, None ED Physician Swapnil South HPI: 10/02 14:00 This 22 yrs old Female presents to ER via Ambulatory with complaints of pm1 Nausea. 14:00 The patient presents to the emergency department with nausea. pm1 14:00 Onset: The symptoms/episode began/occurred last night. Possible causes: sudafed. pm1 Associated signs and symptoms: Pertinent negatives: abdominal pain, Chest pain, shortness of breath. Severity of symptoms: in the emergency department the symptoms are unchanged. The patient has not experienced similar symptoms in the past. The patient has been recently seen at an urgent care, just prior to arrival. patient with sinus congestion and headache for the past 5-6 days. Patient took some Sudafed last night and started feeling nausea, jitteriness, and palpitations 30-45 minutes later. Patient went to urgent care for evaluation and she was referred to the ER. 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 - Social history:: Smoking status: Patient uses tobacco products, smokes one-half pack cigarettes per day. - Ebola Screening: : Patient denies travel to an Ebola-affected area in the 21 days before illness onset. ROS: 14:00 Constitutional: Negative for fever, chills, and weight loss, Eyes: Negative for injury, pm1 pain, redness, and discharge, ENT: Negative for injury, pain, and discharge, Neck: Negative for injury, pain, and swelling, Respiratory: Negative for shortness of breath, cough, wheezing, and pleuritic chest pain. 14:00 Back: Negative for injury and pain, MS/Extremity: Negative for injury and deformity, Skin: Negative for injury, rash, and discoloration, Neuro: Negative for headache, weakness, numbness, tingling, and seizure. 14:00 Cardiovascular: Positive for palpitations, Negative for chest pain, edema, orthopnea. 14:00 Abdomen/GI: Positive for nausea, Negative for abdominal pain, vomiting, diarrhea. Exam: 14:00 Constitutional: This is a well developed, well nourished patient who is awake, alert, pm1 and in no acute distress. Head/Face: Normocephalic, atraumatic. Eyes: Pupils equal round and reactive to light, extra-ocular motions intact. Lids and lashes normal. Conjunctiva and sclera are non-icteric and not injected. Cornea within normal limits. Periorbital areas with no swelling, redness, or edema. ENT: Nares patent. No nasal discharge, no septal abnormalities noted. Tympanic membranes are normal and external auditory canals are clear. Oropharynx with no redness, swelling, or masses, exudates, or evidence of obstruction, uvula midline. Mucous membranes moist. Neck: Trachea midline, no thyromegaly or masses palpated, and no cervical lymphadenopathy. Supple, full range of motion without nuchal rigidity, or vertebral point tenderness. No Meningismus. Chest/axilla: Normal chest wall appearance and motion. Nontender with no deformity. No lesions are appreciated. Cardiovascular: Regular rate and rhythm with a normal S1 and S2. No gallops, murmurs, or rubs. Normal PMI, no JVD. No pulse deficits. Respiratory: Lungs have equal breath sounds bilaterally, clear to auscultation and percussion. No rales, rhonchi or wheezes noted. No increased work of breathing, no retractions or nasal flaring. Abdomen/GI: Soft, non-tender, with normal bowel sounds. No distension or tympany. No guarding or rebound. No evidence of tenderness throughout. Back: No spinal tenderness. No costovertebral tenderness. Full range of motion. Skin: Warm, dry with normal turgor. Normal color with no rashes, no lesions, and no evidence of cellulitis. MS/ Extremity: Pulses equal, no cyanosis. Neurovascular intact. Full, normal range of motion. Neuro: Awake and alert, GCS 15, oriented to person, place, time, and situation. Cranial nerves II-XII grossly intact. Motor strength 5/5 in all extremities. Sensory grossly intact. Cerebellar exam normal. Normal gait. Vital Signs: 12:24 BP 115 / 81; Pulse 92; Resp 18; Temp 97.3(TE); Pulse Ox 100% on R/A; Weight 81.65 kg aj1 (R); Height 5 ft. 4 in. (162.56 cm) (R); Pain 8/10; 14:10 BP 92 / 79; Pulse 72; Resp 18; Pulse Ox 100% on R/A; tw2 15:21 BP 109 / 73; Pulse 55; Resp 17; Pulse Ox 100% on R/A; tw2 16:05 BP 106 / 56; Pulse 77; Resp 17; Pulse Ox 100% on R/A; tw2 17:05 BP 109 / 75; Pulse 77; Resp 17; Pulse Ox 97% on R/A; tw2 12:24 Body Mass Index 30.90 (81.65 kg, 162.56 cm) aj1 MDM: 13:10 Patient medically screened. pm1 16:18 Data reviewed: vital signs. Data interpreted: Pulse oximetry: on room air is 100 %. pm1 Interpretation:. 16:27 Counseling: I had a detailed discussion with the patient and/or guardian regarding: the pm1 historical points, exam findings, and any diagnostic results supporting the discharge/admit diagnosis, lab results, the need for outpatient follow up, to return to the emergency department if symptoms worsen or persist or if there are any questions or concerns that arise at home. 16:27 ED course: Recommended otc medications for patient's rhinosinusitis, such ach pm1 decongestants without sudafed and nasal steroids. Patient afebrile and symptoms of nasal and sinus congestion present for 5 days. No indication for abx therapy. 10/02 13:35 Order name: Basic Metabolic Panel; Complete Time: 15:37 pm10/02 13:35 Order name: CBC with Diff; Complete Time: 15:37 pm1 10/02 13:35 Order name: UDS; Complete Time: 16:17 pm10/02 15:25 Order name: Urine Dipstick--Ancillary (enter results); Complete Time: 16:17 ag 10/02 15:26 Order name: Urine --Ancillary (enter results) ag 10/02 15:38 Order name: Urine Microscopic Only pm1 10/02 13:35 Order name: Urine Test (obtain specimen); Complete Time: 15:22 pm10/02 13:35 Order name: EKG; Complete Time: 13:35 pm1 10/02 13:35 Order name: EKG - Nurse/Tech; Complete Time: 13:47 pm1 10/02 13:35 Order name: IV Saline Lock; Complete Time: 13:59 pm1 10/02 13:35 Order name: Labs collected and sent; Complete Time: 13:59 pm1 10/02 13:35 Order name: Urine Dipstick-Ancillary (obtain specimen); Complete Time: 15:22 pm1 Administered Medications: 13:55 Drug: Zofran 4 mg Route: IVP; Site: right antecubital; tw2 16:30 Follow up: Response: No adverse reaction; Nausea is decreased tw2 13:59 Drug: NS 0.9% 1000 ml Route: IV; Rate: 1000 ml; Site: right antecubital; tw2 15:30 Follow up: Response: No adverse reaction; IV Status: Completed infusion; IV Intake: tw2 1000ml Disposition: 10/03 14:13 Co-signature as Attending Physician, Swapnil South MD I agree with the assessment and kdr plan of care. Disposition: 10/02/17 16:31 Discharged to Home. Impression: Unspecified adverse effect of drug or medicament, Cannabis abuse. - Condition is Stable. - Discharge Instructions: Alcohol and Drug Addiction, Finding Treatment, Drug Allergy. - Medication Reconciliation Form, Thank You Letter, Work release form form. - Follow up: Emergency Department; When: As needed; Reason: Worsening of condition. Follow up: Private Physician; When: 2 - 3 days; Reason: Recheck today's complaints, Continuance of care, Re-evaluation by your physician. - Problem is new. - Symptoms have improved. Signatures: Dispatcher [employer] EDMS Suzy Hicks RN RN aj1 Swapnil South MD MD kdr Marinas, Patrick, NP COMMISSIONED SECURITY OFFICER pm1 Fiona Omer RN RN tw2 Corrections: (The following items were deleted from the chart) 10/02 16:31 16:31 10/02/2017 16:31 Discharged to Home. Impression: Unspecified adverse effect of pm1 drug or medicament. Condition is Stable. Forms are Medication Reconciliation Form, Thank You Letter, Antibiotic Education, Prescription Opioid Use. Follow up: Emergency Department; When: As needed; Reason: Worsening of condition. Follow up: Private Physician; When: 2 - 3 days; Reason: Recheck today's complaints, Continuance of care, Re-evaluation by your physician. Problem is new. Symptoms have improved. pm1 17:06 16:31 10/02/2017 16:31 Discharged to Home. Impression: Unspecified adverse effect of tw2 drug or medicament; Cannabis abuse. Condition is Stable. Forms are Medication Reconciliation Form, Thank You Letter, Antibiotic Education, Prescription Opioid Use. Follow up: Emergency Department; When: As needed; Reason: Worsening of condition. Follow up: Private Physician; When: 2 - 3 days; Reason: Recheck today's complaints, Continuance of care, Re-evaluation by your physician. Problem is new. Symptoms have improved. pm1
[2017-10-02 17:52] LABS: Urine Bacteria 20-50 /HPF (<20); Urine Culture Reflex Order REFLEXED; Urine Mucus 2+ /HPF (NONE SEEN); Urine RBC <5 /HPF (NONE SEEN)
== END 2017-10-02 17:06 | disposition home or self-care (01) ==
LOC: ER 12:13
DX: T88.7XXA Unspecified adverse effect of drug or medicament, initial encounter (principal); T50.995A Adverse effect of other drugs, medicaments and biological substances, initial encounter; Y92.019 Unspecified place in single-family (private) house as the place of occurrence of the external cause; F12.10 Cannabis abuse, uncomplicated
CPT/HCPCS: 36415; 80048; 80307; 81003; 81015; 81025; 85025; 87086; 87088; 93005; 96361; 96374; 99284; J2405; J7030

== ENCOUNTER 2018-03-02 11:03 | Emergency (ER) | payer BC ==
--- OUTSIDE RECORDS SUMMARY | 2018-03-02 11:05 | XMS REPORT | Clinical Summary ---
:1995 Author Organization [facility] Address [address] [place] [address] Care Team Providers Name Role Phone Unavailable Primary Care Provider Unavailable Allergies Active Allergy Reactions Severity Noted Date Comments Ciprofloxacin 02/19/2017 Latex 02/19/2017 Medications Medication Sig Dispensed Refills Start Date End Date Status wnwlsyawc-AE-ET-acetamino Take by mouth. 0 Active phen 43-38-96-650 mg PPkS Active Problems Not on file Social History Tobacco Use Types Packs/Day Years Used Date Current Every Day Smoker Smokeless Tobacco: Never Used Alcohol Use Drinks/Week oz/Week Comments Yes Sex Assigned at Date Recorded Not on file Job Start Date Occupation Industry Not on file Not on file Not on file Travel History Travel Start Travel End No recent travel history available. Last Filed Vital Signs Not on file Plan of Treatment Not on file Results Not on fileafter 03/01/2017 Insurance Payer Benefit Plan / Subscriber ID Type Phone Address Group MEDICAID - MEDICAID MEDICAID [facility] xxxxxxxxx Medicaid Contracted [facility]
--- OUTSIDE RECORDS SUMMARY | 2018-03-02 11:06 | XMS REPORT | Continuity of Care Document ---
[...] left [place] Ankle sprain Active Problem 10/16/2016 [place] Medications Medication Details Route Status Patient Ordering [...] type Reported ciprofloxacin Assertion Drug Active allergy [place] Immunizations Immunization Date Given Site Status Last Updated Comments Source Results Order Name Results Value Reference Date Interpretation Comments Source Range CHEM PANEL Lipase Lvl 78 unit/L 73 - 393 10/13 [place] CHEM PANEL eGFR 111 10/13 Result Comment: [...] not recommended in the following populations: [place] [address] Individuals with unstable creatinine concentrations, including [...] Lvl 8.9 mg/dL 8.5 - 10.5 10/13 [place] CHEM PANEL Total Protein 7.6 g/dL 6.4 - 8.4 10/13 [place] CHEM PANEL Chloride Lvl 107 meq/L 95 - 109 10/13 [place] CHEM PANEL CO2 25 meq/L 24 - 32 10/13 [place] CHEM PANEL Potassium Lvl 3.6 meq/L 3.5 - 5.1 10/13 [place] CHEM PANEL Creatinine 0.76 mg/dL 0.50 - 10/13 [facility] Lvl 1.40 /2016 [place] CHEM PANEL Sodium Lvl 139 meq/L 135 - 145 10/13 [place] CHEM PANEL Bili Total 0.5 mg/dL 0.2 - 1.3 10/13 [place] CHEM PANEL Alk Phos 91 unit/L 39 - 136 10/13 [place] CHEM PANEL ALT 34 unit/L 0 - 65 10/13 [place] CHEM PANEL Albumin Lvl 3.8 g/dL 3.5 - 5.0 10/13 [place] CHEM PANEL AST 14 unit/L 0 - 37 10/13 [place] CHEM PANEL Glucose Lvl 87 mg/dL 70 - 99 10/13 [place] CHEM PANEL BUN 11 mg/dL 7 - 10/13 [place] CHEM PANEL Globulin 3.8 g/dL 2.7 - 4.2 10/13 [place] CHEM PANEL A/G Ratio 1.0 0.7 - 1.6 10/13 [place] CHEM PANEL AGAP 10.6 meq/L 10.0 - 10/13 20.0 [place] CHEM PANEL B/C Ratio 14 6 - 25 10/13 [place] ENDOCRINOLO S Preg Negative Negative 10/13 [place] *NA* [place] (10/13/16 6:30 PM) HEMATOLOGY Monocytes # 1.2 K/CMM 0.0 - 0.8 10/13 [place] HEMATOLOGY Lymphocytes # 3.2 K/CMM 1.0 - 5.5 10/13 [place] HEMATOLOGY Basophils # 0.0 K/CMM 0.0 - 0.2 10/13 [place] HEMATOLOGY Eosinophils # 0.4 K/CMM 0.0 - 0.5 10/13 [place] HEMATOLOGY Segs-Bands # 9.0 K/CMM 1.5 - 8.1 10/13 [place] HEMATOLOGY Segs 64.9 % 45.0 - 10/13 [facility] 75.0 /2016 [place] HEMATOLOGY Monocytes 8.6 % 2.0 - 12.0 10/13 [place] HEMATOLOGY Lymphocytes 23.3 % 20.0 - 10/13 [facility] 40.0 [place] HEMATOLOGY Basophils 0.4 % 0.0 - 1.0 10/13 [place] HEMATOLOGY Eosinophils 2.8 % 0.0 - 4.0 10/13 [place] HEMATOLOGY WBC 13.8 K/CMM 3.7 - 10.4 10/13 [place] HEMATOLOGY MCH 27.7 pg 27.0 - 10/13 [facility] 31.0 [place] HEMATOLOGY MCHC 32.7 g/dL 32.0 - 10/13 [facility] 36.0 /2016 [place] HEMATOLOGY Platelet 247 K/CMM 133 - 450 10/13 [place] HEMATOLOGY RDW 16.1 % 11.5 - 10/13 [facility] 14.5 /2016 [place] HEMATOLOGY MCV 84.8 fL 80.0 - 10/13 [facility] 98.0 [place] HEMATOLOGY Hct 39.6 % 36.0 - 10/13 [facility] 48.0 [place] HEMATOLOGY RBC 4.67 M/CMM 4.20 - 10/13 [facility] 5.40 /2016 [place] HEMATOLOGY Hgb 12.9 g/dL 12.0 - 10/13 16.0 [place] HEMATOLOGY MPV 9.3 fL 7.4 - 10.4 10/13 [place] URINE AND UA Blood Large Negative 10/13 [facility] [place] *ABN* [place] (10/13/16 6:30 PM) URINE AND UA Bili Negative Negative 10/13 [facility] [place] *NA* [place] (10/13/16 6:30 PM) URINE AND UA Ketones Negative Negative 10/13 [facility] mg/dL mg/dL [place] URINE AND UA Glucose Negative Negative 10/13 [facility] mg/dL mg/dL [place] URINE AND UA Turbidity Marked Clear 10/13 [facility] [place] *ABN* [place] (10/13/16 6:30 PM) URINE AND UA pH 5.0 5.0 - 8.0 10/13 [facility] [place] URINE AND UA Color Yellow Yellow 10/13 [place] *NA* [facility] (10/13/16 6:30 PM) URINE AND UA Protein 30 mg/dL Negative 10/13 [place] mg/dL [place] URINE AND UA Spec Grav 1.029 <=1.030 10/13 [place] URINE AND UA <=1.0 mg/dL 0.1 - 1.0 10/13 [facility] Urobilinogen [place] URINE AND UA CaOx Terri Occasional None Seen 10/13 [facility] /HPF /HPF [place] URINE AND UA Mucus Few /LPF None Seen 10/13 [facility] /LPF [place] URINE AND UA Bacteria Occasional None Seen 10/13 [facility] /HPF /HPF [place] URINE AND UA WBC 16 /HPF 0 - 5 10/13 [place] URINE AND UA Leuk Est Moderate Negative 10/13 [place] *ABN* [facility] (10/13/16 6:30 PM) URINE AND UA RBC null 0 - 2 10/13 [place] URINE AND UA Sq Epi Many /LPF Few /LPF 10/13 [place] URINE AND UA Nitrite Negative Negative 10/13 [place] (10/13/16 6:30 PM) [facility] ED ED CLINICAL HISTORY: , - right abdominal pain 10/13 - Abdomen/Pel Abdomen/Pelvi /2016 - [place] vis IV s IV contrast [facility] contrast only CT only CT EXAM: [...] pain 10/13 - US US /2016 - [place] EXAM: Right upper quadrant ultrasound 10/13/2016 6:14 [...] Comments Source Systolic (mm Hg) 100 10/14/2016 [place] Diastolic (mm Hg) 61 10/14/2016 [place] Heart Rate 69 10/14/2016 [place] Systolic (mm Hg) 112 10/14/2016 [facility] [place] Diastolic (mm Hg) 62 10/14/2016 [place] Heart Rate 62 10/14/2016 [place] Respitory Rate 16 10/14/2016 [place] Heart Rate 103 10/13/2016 [place] Respitory Rate 20 10/13/2016 [place] Temperature Oral (F) 98.7 F 10/13/2016 [facility] [place] Systolic (mm Hg) 124 10/13/2016 [facility] [place] Diastolic (mm Hg) 78 10/13/2016 [place] Weight 82.682 10/13/2016 [place] Respitory Rate 16 09/19/2016 [facility] [place] Systolic (mm Hg) 99 09/19/2016 [facility] [place] Diastolic (mm Hg) 50 09/19/2016 [place] Temperature Oral (F) 98.0 F 09/19/2016 [place] Heart Rate 68 09/19/2016 [place] Temperature Oral (F) 98.4 F 09/18/2016 [place] Weight 83 09/18/2016 [place] Respitory Rate 17 09/18/2016 [place] Heart Rate 82 09/18/2016 [place] Systolic (mm Hg) 129 09/18/2016 [place] Diastolic (mm Hg) 72 09/18/2016 [place] Encounters Location Location Encounter Encounter Reason Attending ADM DC Status Source Details Type Number For Provider Date Date Visit [facility] Emergency [id number] Caleb 09/18 09/19 Vinay Mullen /2016 [place] [facility] Emergency [id number] Emmanuel 10/13 10/14 Vinay Oglesby /2016 [place] Procedures Procedure Code Date Perfomer Comments Source
--- OUTSIDE RECORDS SUMMARY | 2018-03-02 11:06 | XMS REPORT ---
:1995 [facility] Address [address] [place] [address] Care Team Providers Name Role Phone Unavailable [...] Comments GONADOTROPIN, CHORIONIC (HCG) QUANT (BEAKER) (test rzml=505) < mIU/mL 0-10 Non- Females: <10 mIU/mL Females: Gestation Age Reference Range(mIU/mL) 0.2-1 Week 5-50 1-2 Weeks 50-500 2-3 Weeks 100-5,000 3-4Weeks 500-10,000 4 -5 Weeks 1,000-50,000 5-6 Weeks 10,000-100,000 6-8 Weeks 15,000-200,000 2-3 Months 10,000-100,000BASIC METABOLIC [id number] 03:36:00 Test Item Value Reference Range Comments SODIUM (BEAKER) (test 139 meq/L 136-145 imln=572) POTASSIUM (BEAKER) (test 4.0 meq/L 3.5-5.1 xyak=050) CHLORIDE (BEAKER) (test 106 meq/L 98-107 hzrv=480) CO2 (BEAKER) (test 23 meq/L 22-29 jmqm=453) BLOOD UREA NITROGEN 8 mg/dL 7-21 (BEAKER) (test dmqs=235) CREATININE (BEAKER) (test 0.78 mg/dL 0.57-1.25 rknq=906) GLUCOSE RANDOM (BEAKER) 95 mg/dL 70-105 (test bvda=389) CALCIUM (BEAKER) (test 9.7 mg/dL 8.4-10.2 bbxt=871) EGFR (BEAKER) (test 92 mL/min/1.73 sq m ESTIMATED GFR IS NOT zulf=8499) ACCURATE CREATININE CLEARANCE IN PREDICTING GLOMERULAR FILTRATION RATE. ESTIMATED GFR IS NOT APPLICABLE FOR DIALYSIS PATIENTS. CBC W/PLT COUNT & AUTO [id number] 02:53:00 Test Item Value Reference Range Comments WHITE BLOOD CELL COUNT (BEAKER) (test xbqd=555) 10.0 K/ L 3.5-10.5 RED BLOOD CELL COUNT (BEAKER) (test xdrr=034) 4.50 M/ L 3.93-5.22 HEMOGLOBIN (BEAKER) (test eejg=882) 13.2 GM/DL 11.2-15.7 HEMATOCRIT (BEAKER) (test wwjc=740) 39.9 % 34.1-44.9 MEAN CORPUSCULAR VOLUME (BEAKER) (test akvz=493) 88.7 fL 79.4-94.8 MEAN CORPUSCULAR HEMOGLOBIN (BEAKER) (test 29.3 pg 25.6-32.2 azlq=725) MEAN CORPUSCULAR HEMOGLOBIN CONC (BEAKER) (test 33.1 GM/DL 32.2-35.5 wrhu=013) RED CELL DISTRIBUTION WIDTH (BEAKER) (test 13.5 % 11.7-14.4 lizm=317) PLATELET COUNT (BEAKER) (test jasx=597) 227 K/CU MM 150-450 MEAN PLATELET VOLUME (BEAKER) (test wlze=501) 10.5 fL 9.4-12.3 NUCLEATED RED BLOOD CELLS (BEAKER) (test 0 /100 WBC 0-0 gqav=570) NEUTROPHILS RELATIVE PERCENT (BEAKER) (test 46 % lrrd=272) LYMPHOCYTES RELATIVE PERCENT (BEAKER) (test 35 % aqry=738) MONOCYTES RELATIVE PERCENT (BEAKER) (test 10 % jxbp=603) EOSINOPHILS RELATIVE PERCENT (BEAKER) (test 8 % wijb=814) BASOPHILS RELATIVE PERCENT (BEAKER) (test 1 % uobj=677) NEUTROPHILS ABSOLUTE COUNT (BEAKER) (test 4.60 K/ L 1.56-6.13 qvyr=612) LYMPHOCYTES ABSOLUTE COUNT (BEAKER) (test 3.51 K/ L 1.18-3.74 tvqf=461) MONOCYTES ABSOLUTE COUNT (BEAKER) (test 0.98 K/ L 0.24-0.36 krnn=923) EOSINOPHILS ABSOLUTE COUNT (BEAKER) (test 0.79 K/ L 0.04-0.36 rcjc=826) BASOPHILS ABSOLUTE COUNT (BEAKER) (test 0.07 K/ L 0.01-0.08 snhu=963) IMMATURE GRANULOCYTES-RELATIVE PERCENT (BEAKER) 0 % 0-1 (test cbta=9527) URINALYSIS W/ [id number] 22:40:00 Test Item Value Reference Range Comments COLOR (BEAKER) (test hjfo=296) Roland CLARITY (BEAKER) (test vmfz=911) Hazy SPECIFIC GRAVITY UA (BEAKER) (test 1.021 1.001-1.035 umnf=181) PH UA (BEAKER) (test cjju=274) 6.5 5.0-8.0 PROTEIN UA (BEAKER) (test yrnr=265) 50 mg/dL Negative GLUCOSE UA (BEAKER) (test teqq=250) Negative Negative KETONES UA (BEAKER) (test rfzd=653) Trace Negative BILIRUBIN UA (BEAKER) (test tjsb=480) Negative Negative BLOOD UA (BEAKER) (test attl=513) Large Negative NITRITE UA (BEAKER) (test gpwp=518) Negative Negative LEUKOCYTE ESTERASE UA (BEAKER) (test Moderate Negative ggau=946) UROBILINOGEN UA (BEAKER) (test jkuh=016) 4.0 mg/dL 0.2-1.0 RBC UA (BEAKER) (test jaid=245) > /HPF WBC UA (BEAKER) (test ymwo=393) 23 /HPF MUCUS (BEAKER) (test jxls=0836) Many SQUAMOUS EPITHELIAL (BEAKER) (test 5 /HPF vchi=533) SOURCE(BEAKER) (test ravs=3053) Urine, Clean Catch SCREEN, [id number] 22:34:00 Test Item Value Reference Range Comments TEST URINE (BEAKER) (test xyfk=033) Negative
[2018-03-02] MEDS ORDERED: ONDANSETRON 4 MG (ODT) TAB ONE (12:03)
[2018-03-02 12:45] LABS: Urine Bacteria 20-50 /HPF (<20)
[2018-03-02 12:46] LABS: Urine Culture Reflex Order REFLEXED
--- NOTE | 2018-03-02 13:40 | ER ---
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 Transition of care: patient was not received from another setting of care. Onset of symptoms was March 02, 2018. Risk Assessment: Do you want to hurt yourself or someone else? Patient reports no desire to harm self or others. Initial Sepsis Screen: Does the patient meet any 2 criteria? No. Patient's initial sepsis screen is negative. Does the patient have a suspected source of infection? No. Patient's initial sepsis screen is negative. Care prior to arrival: None. 11:07 Method Of Arrival: Ambulatory 11:07 Acuity: DASH 4 hj Triage Assessment: 11:10 General: Appears in no apparent distress. uncomfortable, Behavior is calm, cooperative, hj appropriate for age. Pain: Denies pain. GI: Reports nausea. 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 - Social history:: Smoking status: Patient/guardian denies using tobacco, Patient/guardian denies using alcohol. - Ebola Screening: : Patient negative for fever greater than or equal to 101.5 degrees Fahrenheit, and additional compatible Ebola Virus Disease symptoms Patient denies exposure to infectious person Patient denies travel to an Ebola-affected area in the 21 days before illness onset. Screenin:10 Abuse screen: Denies threats or abuse. Denies injuries from another. Nutritional hj screening: No deficits noted. Tuberculosis screening: No symptoms or risk factors identified. Fall Risk None identified. Assessment: 11:33 General: Appears in no apparent distress. comfortable, Behavior is calm, cooperative, aj1 appropriate for age. Pain: Denies pain. Neuro: Level of Consciousness is awake, alert, obeys commands. Cardiovascular: Patient's skin is warm and dry. Respiratory: Airway is patent Respiratory effort is even, unlabored, Respiratory pattern is regular, symmetrical. GI: Abdomen is non-distended, Reports nausea. : No signs and/or symptoms were reported regarding the genitourinary system. EENT: No signs and/or symptoms were reported regarding the EENT system. Derm: No signs and/or symptoms reported regarding the dermatologic system. Skin is pink, warm \T\ dry. normal. Musculoskeletal: No signs and/or symptoms reported regarding the musculoskeletal system. Circulation, motion, and sensation intact. 12:30 Reassessment: Patient appears in no apparent distress at this time. No changes from aj1 previously documented assessment. Patient and/or family updated on plan of care and expected duration. Pain level reassessed. Patient is alert, oriented x 3, equal unlabored respirations, skin warm/dry/pink. Patient states the her nausea is better since taking oral Zofran. 13:30 Reassessment: Patient appears in no apparent distress at this time. No changes from aj1 previously documented assessment. Patient and/or family updated on plan of care and expected duration. Pain level reassessed. Patient is alert, oriented x 3, equal unlabored respirations, skin warm/dry/pink. Vital Signs: 11:11 BP 117 / 63; Pulse 71; Resp 18; Temp 98.1(TE); Pulse Ox 100% on R/A; Weight 63.5 kg; Height 5 ft. 4 in. (162.56 cm); Pain 0/10; 11:11 Body Mass Index 24.03 (63.50 kg, 162.56 cm) ED Course: 11:07 Patient arrived in ED. 11:09 Triage completed. 11:11 Arm band placed on right wrist. 11:12 Patient has correct armband on for positive identification. Bed in low position. Call light in reach. Side rails up X 1. 11:18 Oniel Joseph MD is Attending Physician. gs 11:18 Suzy Hicks RN is Primary Nurse. aj1 11:25 Warm blanket given. jp3 11:30 Urine collected: clean catch specimen, clear, christ colored, Amount Voided: 30mL. jp3 11:33 No provider procedures requiring assistance completed. aj1 11:39 Patient maintains SpO2 saturation greater than 95% on room air. jp3 13:58 Patient did not have IV access during this emergency room visit. aj1 Administered Medications: 11:55 Drug: Zofran 4 mg Route: PO; aj1 13:59 Follow up: Response: No adverse reaction aj1 Outcome: 13:39 Discharge ordered by . milady 13:58 Discharged to home ambulatory. aj1 13:58 Condition: good 13:58 Discharge instructions given to patient, Instructed on discharge instructions, follow up and referral plans. medication usage, Demonstrated understanding of instructions, follow-up care, medications, Prescriptions given X 1. 13:59 Patient left the ED. aj1 Signatures: Suzy Hicks RN RN aj1 Roscoe Ochoa RN RN Oniel Joseph MD MD gs Pisarski, Jacob jp3 Corrections: (The following items were deleted from the chart) 11:13 11:11 Pulse 71bpm; Resp 18bpm; Pulse Ox 100% RA; Temp 98.1F Temporal; 63.5 kg; Height 5 hj ft. 4 in.; BMI: 24.0; Pain 0/10; hj
--- NOTE | 2018-03-02 13:40 | EDPHYS ---
Physician Documentation [facility] Name: Marita Dangelo Age: 22 yrs Sex: Female : 1995 Arrival Date: 03/02/2018 Time: 11:07 Bed 26 Private MD: ED Physician Oniel Joseph HPI: 03/02 12:58 This 22 yrs old Female presents to ER via Ambulatory with complaints of gs Nausea. 12:58 Onset: The symptoms/episode began/occurred acutely, this morning. Possible causes: gs unknown. The symptoms are aggravated by nothing. The symptoms are alleviated by nothing. Associated signs and symptoms: Pertinent positives: myalgias. Severity of symptoms: At their worst the symptoms were moderate in the emergency department the symptoms are unchanged. 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 - Social history:: Smoking status: Patient/guardian denies using tobacco, Patient/guardian denies using alcohol. - Ebola Screening: : Patient negative for fever greater than or equal to 101.5 degrees Fahrenheit, and additional compatible Ebola Virus Disease symptoms Patient denies exposure to infectious person Patient denies travel to an Ebola-affected area in the 21 days before illness onset. ROS: 13:25 All other systems are negative. gs Exam: 13:25 Head/Face: Normocephalic, atraumatic. Eyes: Pupils equal round and reactive to light, gs extra-ocular motions intact. Lids and lashes normal. Conjunctiva and sclera are non-icteric and not injected. Cornea within normal limits. Periorbital areas with no swelling, redness, or edema. ENT: Nares patent. No nasal discharge, no septal abnormalities noted. Tympanic membranes are normal and external auditory canals are clear. Oropharynx with no redness, swelling, or masses, exudates, or evidence of obstruction, uvula midline. Mucous membranes moist. Neck: Trachea midline, no thyromegaly or masses palpated, and no cervical lymphadenopathy. Supple, full range of motion without nuchal rigidity, or vertebral point tenderness. No Meningismus. Chest/axilla: Normal chest wall appearance and motion. Nontender with no deformity. No lesions are appreciated. Cardiovascular: Regular rate and rhythm with a normal S1 and S2. No gallops, murmurs, or rubs. Normal PMI, no JVD. No pulse deficits. Respiratory: Lungs have equal breath sounds bilaterally, clear to auscultation and percussion. No rales, rhonchi or wheezes noted. No increased work of breathing, no retractions or nasal flaring. Abdomen/GI: Soft, non-tender, with normal bowel sounds. No distension or tympany. No guarding or rebound. No evidence of tenderness throughout. Back: No spinal tenderness. No costovertebral tenderness. Full range of motion. Skin: Warm, dry with normal turgor. Normal color with no rashes, no lesions, and no evidence of cellulitis. MS/ Extremity: Pulses equal, no cyanosis. Neurovascular intact. Full, normal range of motion. Neuro: Awake and alert, GCS 15, oriented to person, place, time, and situation. Cranial nerves II-XII grossly intact. Motor strength 5/5 in all extremities. Sensory grossly intact. Cerebellar exam normal. Normal gait. 13:25 Constitutional: The patient appears alert, awake. Vital Signs: 11:11 BP 117 / 63; Pulse 71; Resp 18; Temp 98.1(TE); Pulse Ox 100% on R/A; Weight 63.5 kg; hj Height 5 ft. 4 in. (162.56 cm); Pain 0/10; 11:11 Body Mass Index 24.03 (63.50 kg, 162.56 cm) MDM: 11:42 Patient medically screened. 13:25 Differential diagnosis: viral gastroenteritis, gastroenteritis, flu. Data reviewed: vital signs, nurses notes. Response to treatment: the patient's symptoms have markedly improved after treatment, and as a result, I will discharge patient. 03/02 11:38 Order name: Urine Microscopic Only iw 03/02 11:44 Order name: Urine Dipstick--Ancillary (enter results) 03/02 11:14 Order name: Urine Dipstick-Ancillary (obtain specimen); Complete Time: 11:39 03/02 11:44 Order name: Urine --Ancillary (enter results) 03/02 13:38 Order name: Urine Culture EDAK 03/02 11:14 Order name: Urine Test (obtain specimen); Complete Time: 11:39 Administered Medications: 11:55 Drug: Zofran 4 mg Route: PO; aj1 13:59 Follow up: Response: No adverse reaction aj1 Disposition: 03/02/18 13:39 Discharged to Home. Impression: Nausea, Cystitis. - Condition is Stable. - Discharge Instructions: Nausea, Adult, Urinary Tract Infection, Adult. - Prescriptions for Zofran 4 mg Oral Tablet - take 1 tablet by ORAL route every 12 hours As needed; 6 tablet. Keflex 500 mg Oral Capsule - take 1 capsule by ORAL route 3 times per day for 7 days; 21 capsule. - Medication Reconciliation Form, Thank You Letter, Antibiotic Education, Prescription Opioid Use form. - Follow up: Private Physician; When: 2 - 3 days; Reason: Re-evaluation by your physician. Signatures: Dispatcher [employer] [facility] Suzy Hicks RN RN aj1 Roscoe Ochoa RN RN Oniel Joseph MD MD Corrections: (The following items were deleted from the chart) 13:59 13:39 03/02/2018 13:39 Discharged to Home. Impression: Nausea; Cystitis. Condition is aj1 Stable. Forms are Medication Reconciliation Form, Thank You Letter, Antibiotic Education, Prescription Opioid Use. Follow up: Private Physician; When: 2 - 3 days; Reason: Re-evaluation by your physician. gs
[2018-03-02 17:14] LABS: Urine Blood 1+ (NEG); Urine Glucose NEGATIVE (NEG); Urine Protein NEGATIVE (NEG); Urine pH 5.5 (5.0-7.0)
== END 2018-03-02 13:59 | disposition home or self-care (01) ==
LOC: ER 11:03
DX: N30.90 Cystitis, unspecified without hematuria (principal); Z88.1 Allergy status to other antibiotic agents
CPT/HCPCS: 81003; 81015; 81025; 87086; 87088; 99284

== ENCOUNTER 2018-04-19 13:28 | Emergency (ER) | payer BC, SELFPAY ==
--- OUTSIDE RECORDS SUMMARY | 2018-04-19 13:31 | XMS REPORT | Continuity of Care Document ---
[...] left Land Ankle sprain Active Problem 10/16/2016 [facility] Medications Medication Details Route Status Patient Ordering [...] type Reported ciprofloxacin Assertion Drug Active allergy [facility] Immunizations Immunization Date Given Site Status Last Updated Comments Source Results Order Name Results Value Reference Date Interpretation Comments Source Range CHEM PANEL Lipase Lvl 78 unit/L 73 - 393 10/13 [facility] CHEM PANEL eGFR 111 10/13 Result Comment: [...] not recommended in the following populations: [place] [address] Individuals with unstable creatinine concentrations, including [...] Lvl 8.9 mg/dL 8.5 - 10.5 10/13 [facility] CHEM PANEL Total Protein 7.6 g/dL 6.4 - 8.4 10/13 [facility] CHEM PANEL Chloride Lvl 107 meq/L 95 - 109 10/13 [facility] CHEM PANEL CO2 25 meq/L 24 - 32 10/13 [facility] CHEM PANEL Potassium Lvl 3.6 meq/L 3.5 - 5.1 10/13 [facility] CHEM PANEL Creatinine 0.76 mg/dL 0.50 - 10/13 MH Lvl 1.40 /2016 [facility] CHEM PANEL Sodium Lvl 139 meq/L 135 - 145 10/13 [facility] CHEM PANEL Bili Total 0.5 mg/dL 0.2 - 1.3 10/13 [facility] CHEM PANEL Alk Phos 91 unit/L 39 - 136 10/13 [facility] CHEM PANEL ALT 34 unit/L 0 - 65 10/13 [facility] CHEM PANEL Albumin Lvl 3.8 g/dL 3.5 - 5.0 10/13 [facility] CHEM PANEL AST 14 unit/L 0 - 37 10/13 [facility] CHEM PANEL Glucose Lvl 87 mg/dL 70 - 99 10/13 [facility] CHEM PANEL BUN 11 mg/dL 7 - 10/13 [facility] CHEM PANEL Globulin 3.8 g/dL 2.7 - 4.2 10/13 [facility] CHEM PANEL A/G Ratio 1.0 0.7 - 1.6 10/13 [facility] CHEM PANEL AGAP 10.6 meq/L 10.0 - 10/13 20.0 [facility] CHEM PANEL B/C Ratio 14 6 - 25 10/13 [facility] ENDOCRINOLO S Preg Negative Negative 10/13 [facility] *NA* [place] (10/13/16 6:30 PM) HEMATOLOGY Monocytes # 1.2 K/CMM 0.0 - 0.8 10/13 [facility] HEMATOLOGY Lymphocytes # 3.2 K/CMM 1.0 - 5.5 10/13 [facility] HEMATOLOGY Basophils # 0.0 K/CMM 0.0 - 0.2 10/13 [facility] HEMATOLOGY Eosinophils # 0.4 K/CMM 0.0 - 0.5 10/13 [facility] HEMATOLOGY Segs-Bands # 9.0 K/CMM 1.5 - 8.1 10/13 [facility] HEMATOLOGY Segs 64.9 % 45.0 - 10/13 MH 75.0 /2016 [facility] HEMATOLOGY Monocytes 8.6 % 2.0 - 12.0 10/13 [facility] HEMATOLOGY Lymphocytes 23.3 % 20.0 - 10/13 MH 40.0 [facility] HEMATOLOGY Basophils 0.4 % 0.0 - 1.0 10/13 [facility] HEMATOLOGY Eosinophils 2.8 % 0.0 - 4.0 10/13 [facility] HEMATOLOGY WBC 13.8 K/CMM 3.7 - 10.4 10/13 [facility] HEMATOLOGY MCH 27.7 pg 27.0 - 10/13 MH 31.0 [facility] HEMATOLOGY MCHC 32.7 g/dL 32.0 - 10/13 MH 36.0 /2016 [facility] HEMATOLOGY Platelet 247 K/CMM 133 - 450 10/13 [facility] HEMATOLOGY RDW 16.1 % 11.5 - 10/13 MH 14.5 /2016 [facility] HEMATOLOGY MCV 84.8 fL 80.0 - 10/13 MH 98.0 [facility] HEMATOLOGY Hct 39.6 % 36.0 - 10/13 MH 48.0 [facility] HEMATOLOGY RBC 4.67 M/CMM 4.20 - 10/13 MH 5.40 /2016 [facility] HEMATOLOGY Hgb 12.9 g/dL 12.0 - 10/13 16.0 [facility] HEMATOLOGY MPV 9.3 fL 7.4 - 10.4 10/13 [facility] URINE AND UA Blood Large Negative 10/13 [facility] *ABN* [place] (10/13/16 6:30 PM) URINE AND UA Bili Negative Negative 10/13 [facility] *NA* [place] (10/13/16 6:30 PM) URINE AND UA Ketones Negative Negative 10/13 [facility] mg/dL mg/dL [facility] URINE AND UA Glucose Negative Negative 10/13 [facility] mg/dL mg/dL [facility] URINE AND UA Turbidity Marked Clear 10/13 [facility] *ABN* [place] (10/13/16 6:30 PM) URINE AND UA pH 5.0 5.0 - 8.0 10/13 [facility] URINE AND UA Color Yellow Yellow 10/13 [facility] *NA* [facility] (10/13/16 6:30 PM) URINE AND UA Protein 30 mg/dL Negative 10/13 [facility] mg/dL [facility] URINE AND UA Spec Grav 1.029 <=1.030 10/13 [facility] URINE AND UA <=1.0 mg/dL 0.1 - 1.0 10/13 [facility] Urobilinogen [facility] URINE AND UA CaOx Terri Occasional None Seen 10/13 [facility] /HPF /HPF [facility] URINE AND UA Mucus Few /LPF None Seen 10/13 [facility] /LPF [facility] URINE AND UA Bacteria Occasional None Seen 10/13 [facility] /HPF /HPF [facility] URINE AND UA WBC 16 /HPF 0 - 5 10/13 [facility] URINE AND UA Leuk Est Moderate Negative 10/13 [facility] *ABN* [facility] (10/13/16 6:30 PM) URINE AND UA RBC null 0 - 2 10/13 [facility] URINE AND UA Sq Epi Many /LPF Few /LPF 10/13 [facility] URINE AND UA Nitrite Negative Negative 10/13 [facility] (10/13/16 6:30 PM) [facility] ED ED CLINICAL HISTORY: , - right abdominal pain 10/13 - Abdomen/Pel Abdomen/Pelvi /2016 - [facility] vis IV s IV contrast [facility] contrast only CT only CT EXAM: [...] pain 10/13 - US US /2016 - [facility] EXAM: Right upper quadrant ultrasound 10/13/2016 6:14 [...] Comments Source Systolic (mm Hg) 100 10/14/2016 [facility] Diastolic (mm Hg) 61 10/14/2016 [facility] Heart Rate 69 10/14/2016 [facility] Systolic (mm Hg) 112 10/14/2016 [facility] Diastolic (mm Hg) 62 10/14/2016 [facility] Heart Rate 62 10/14/2016 [facility] Respitory Rate 16 10/14/2016 [facility] Heart Rate 103 10/13/2016 [facility] Respitory Rate 20 10/13/2016 [facility] Temperature Oral (F) 98.7 F 10/13/2016 MH [facility] Systolic (mm Hg) 124 10/13/2016 MH [facility] Diastolic (mm Hg) 78 10/13/2016 [facility] Weight 82.682 10/13/2016 [facility] Respitory Rate 16 09/19/2016 MH [facility] Systolic (mm Hg) 99 09/19/2016 MH [facility] Diastolic (mm Hg) 50 09/19/2016 [facility] Temperature Oral (F) 98.0 F 09/19/2016 [facility] Heart Rate 68 09/19/2016 [facility] Temperature Oral (F) 98.4 F 09/18/2016 [facility] Weight 83 09/18/2016 [facility] Respitory Rate 17 09/18/2016 [facility] Heart Rate 82 09/18/2016 [facility] Systolic (mm Hg) 129 09/18/2016 [facility] Diastolic (mm Hg) 72 09/18/2016 [facility] Encounters Location Location Encounter Encounter Reason Attending ADM DC Status Source Details Type Number For Provider Date Date Visit [facility] [id number] Caelb 09/18 09/19 Vinay Mullen /2016 [facility] [place] [facility] [id number] Emmanuel 10/13 10/14 Vinay Oglesby /2016 [facility] [place] Procedures Procedure Code Date Perfomer Comments Source
--- OUTSIDE RECORDS SUMMARY | 2018-04-19 13:31 | XMS REPORT ---
:1995 [facility] Address [address] [place] [address] [place] [address] Care Team Providers Name Role Phone Unavailable [...] Comments GONADOTROPIN, CHORIONIC (HCG) QUANT (BEAKER) (test jqij=323) < mIU/mL 0-10 Non- Females: <10 mIU/mL Females: Gestation Age Reference Range(mIU/mL) 0.2-1 Week 5-50 1-2 Weeks 50-500 2-3 Weeks 100-5,000 3-4Weeks 500-10,000 4 -5 Weeks 1,000-50,000 5-6 Weeks 10,000-100,000 6-8 Weeks 15,000-200,000 2-3 Months 10,000-100,000BASIC METABOLIC [id number] 03:36:00 Test Item Value Reference Range Comments SODIUM (BEAKER) (test 139 meq/L 136-145 qxmm=901) POTASSIUM (BEAKER) (test 4.0 meq/L 3.5-5.1 okxb=477) CHLORIDE (BEAKER) (test 106 meq/L 98-107 qfdr=389) CO2 (BEAKER) (test 23 meq/L 22-29 vnus=204) BLOOD UREA NITROGEN 8 mg/dL 7-21 (BEAKER) (test zzsw=269) CREATININE (BEAKER) (test 0.78 mg/dL 0.57-1.25 lwdk=480) GLUCOSE RANDOM (BEAKER) 95 mg/dL 70-105 (test zttr=631) CALCIUM (BEAKER) (test 9.7 mg/dL 8.4-10.2 dfsk=165) EGFR (BEAKER) (test 92 mL/min/1.73 sq m ESTIMATED GFR IS NOT oxwu=1540) ACCURATE CREATININE CLEARANCE IN PREDICTING GLOMERULAR FILTRATION RATE. ESTIMATED GFR IS NOT APPLICABLE FOR DIALYSIS PATIENTS. CBC W/PLT COUNT & AUTO [id number] 02:53:00 Test Item Value Reference Range Comments WHITE BLOOD CELL COUNT (BEAKER) (test gqkk=413) 10.0 K/ L 3.5-10.5 RED BLOOD CELL COUNT (BEAKER) (test vklj=845) 4.50 M/ L 3.93-5.22 HEMOGLOBIN (BEAKER) (test ypgn=057) 13.2 GM/DL 11.2-15.7 HEMATOCRIT (BEAKER) (test wyif=391) 39.9 % 34.1-44.9 MEAN CORPUSCULAR VOLUME (BEAKER) (test uugv=957) 88.7 fL 79.4-94.8 MEAN CORPUSCULAR HEMOGLOBIN (BEAKER) (test 29.3 pg 25.6-32.2 uxyh=526) MEAN CORPUSCULAR HEMOGLOBIN CONC (BEAKER) (test 33.1 GM/DL 32.2-35.5 ohye=063) RED CELL DISTRIBUTION WIDTH (BEAKER) (test 13.5 % 11.7-14.4 cjfy=278) PLATELET COUNT (BEAKER) (test pnqb=208) 227 K/CU MM 150-450 MEAN PLATELET VOLUME (BEAKER) (test dfsq=619) 10.5 fL 9.4-12.3 NUCLEATED RED BLOOD CELLS (BEAKER) (test 0 /100 WBC 0-0 cpew=569) NEUTROPHILS RELATIVE PERCENT (BEAKER) (test 46 % dsth=440) LYMPHOCYTES RELATIVE PERCENT (BEAKER) (test 35 % wxyy=817) MONOCYTES RELATIVE PERCENT (BEAKER) (test 10 % lwqg=662) EOSINOPHILS RELATIVE PERCENT (BEAKER) (test 8 % fdrt=551) BASOPHILS RELATIVE PERCENT (BEAKER) (test 1 % ufca=876) NEUTROPHILS ABSOLUTE COUNT (BEAKER) (test 4.60 K/ L 1.56-6.13 iiit=931) LYMPHOCYTES ABSOLUTE COUNT (BEAKER) (test 3.51 K/ L 1.18-3.74 hnkb=573) MONOCYTES ABSOLUTE COUNT (BEAKER) (test 0.98 K/ L 0.24-0.36 bkla=427) EOSINOPHILS ABSOLUTE COUNT (BEAKER) (test 0.79 K/ L 0.04-0.36 lznz=403) BASOPHILS ABSOLUTE COUNT (BEAKER) (test 0.07 K/ L 0.01-0.08 ssgl=542) IMMATURE GRANULOCYTES-RELATIVE PERCENT (BEAKER) 0 % 0-1 (test tnve=7331) URINALYSIS W/ [id number] 22:40:00 Test Item Value Reference Range Comments COLOR (BEAKER) (test viti=541) [place] CLARITY (BEAKER) (test vvfg=221) Hazy SPECIFIC GRAVITY UA (BEAKER) (test 1.021 1.001-1.035 yrsy=287) PH UA (BEAKER) (test nifl=802) 6.5 5.0-8.0 PROTEIN UA (BEAKER) (test oexj=512) 50 mg/dL Negative GLUCOSE UA (BEAKER) (test humi=059) Negative Negative KETONES UA (BEAKER) (test ymwz=953) Trace Negative BILIRUBIN UA (BEAKER) (test ndbo=844) Negative Negative BLOOD UA (BEAKER) (test fdlq=199) Large Negative NITRITE UA (BEAKER) (test iukp=863) Negative Negative LEUKOCYTE ESTERASE UA (BEAKER) (test Moderate Negative qqzd=610) UROBILINOGEN UA (BEAKER) (test sjiw=232) 4.0 mg/dL 0.2-1.0 RBC UA (BEAKER) (test qdsh=155) > /HPF WBC UA (BEAKER) (test fdul=040) 23 /HPF MUCUS (BEAKER) (test ijaf=4529) Many SQUAMOUS EPITHELIAL (BEAKER) (test 5 /HPF vzod=168) SOURCE(BEAKER) (test dxxr=0716) Urine, Clean Catch SCREEN, [id number] 22:34:00 Test Item Value Reference Range Comments TEST URINE (BEAKER) (test xdcc=209) Negative
--- OUTSIDE RECORDS SUMMARY | 2018-04-19 13:31 | XMS REPORT | Clinical Summary ---
:1995 Author Organization [facility] Address [address] [place] [address] Care Team Providers Name Role Phone Unavailable Primary Care Provider Unavailable Allergies Active Allergy Reactions Severity Noted Date Comments Ciprofloxacin 02/19/2017 Latex 02/19/2017 Medications Medication Sig Dispensed Refills Start Date End Date Status tqbqhbmja-PQ-TD-acetamino Take by mouth. 0 Active phen 81-58-89-650 mg PPkS Active Problems Not on file [...] Not on file Results Not on fileafter 04/18/2017 Insurance Payer Benefit Plan / Subscriber ID Type Phone Address Group MEDICAID - MEDICAID MEDICAID [facility] xxxxxxxxx Medicaid Contracted [facility]GD CARE
[2018-04-19] MEDS ORDERED: NA CHLORIDE 0.9% 1,000 ML ONE (14:10)
[2018-04-19] MEDS ORDERED: KETOROLAC 30 MG/ML INJ ONE (14:10)
[2018-04-19] MEDS ORDERED: METOCLOPRAMIDE 10 MG/2mL INJ ONE (14:10)
--- NOTE | 2018-04-19 15:21 | ER ---
Nurse's Notes [facility] Name: Marita Dangelo Age: 22 yrs Sex: Female : 1995 Arrival Date: 04/19/2018 Time: 13:32 Bed 5 Private MD: None, None Diagnosis: Headache Presentation: 04/19 13:38 Presenting complaint: Patient states: [place] for 3 weeks, generalized. Pt reports trying la1 Imitrex, Excedrin, and decongestants. Transition of care: patient was not received from another setting of care. Onset of symptoms was April 19, 2018. Risk Assessment: Do you want to hurt yourself or someone else? Patient reports no desire to harm self or others. Initial Sepsis Screen: Does the patient meet any 2 criteria? No. Patient's initial sepsis screen is negative. Does the patient have a suspected source of infection? No. Patient's initial sepsis screen is negative. Care prior to arrival: None. 13:38 Method Of Arrival: Ambulatory la1 13:38 Acuity: DASH 3 la1 Historical: - Allergies: 13:39 Ciprofloxacin; la1 - PMHx: 13:39 Kidney stones; PCOS; la1 - Immunization history:: Adult Immunizations up to date. - Social history:: Smoking status: Patient/guardian denies using tobacco. - Ebola Screening: : No symptoms or risks identified at this time. - Family history:: not pertinent. - Hospitalizations: : No recent hospitalization is reported. Screenin:10 Abuse screen: Denies threats or abuse. Denies injuries from another. Nutritional sg screening: No deficits noted. Tuberculosis screening: No symptoms or risk factors identified. Never had TB. Fall Risk None identified. Assessment: 13:25 General: Appears in no apparent distress. comfortable, well groomed, well developed, sg well nourished, Behavior is calm, cooperative, appropriate for age. Pain: Complains of pain in forehead Quality of pain is described as aching. Neuro: Level of Consciousness is awake, alert, obeys commands, Oriented to person, place, time, Cheese Wrapper are equal bilaterally Moves all extremities. Full function Speech is normal, Facial symmetry appears normal. Neuro: Reports headache in entire frontal area. Cardiovascular: Patient's skin is warm and dry. Chest pain is denied. Respiratory: Airway is patent Respiratory effort is even, unlabored, Respiratory pattern is regular, symmetrical. GI: No signs and/or symptoms were reported involving the gastrointestinal system. : No signs and/or symptoms were reported regarding the genitourinary system. EENT: No signs and/or symptoms were reported regarding the EENT system. Derm: Skin is pink, warm \T\ dry. Musculoskeletal: No signs and/or symptoms reported regarding the musculoskeletal system. 14:51 Reassessment: Patient appears in no apparent distress at this time. Patient and/or sg family updated on plan of care and expected duration. Pain level reassessed. Patient is alert, oriented x 3, equal unlabored respirations, skin warm/dry/pink. Vital Signs: 13:39 BP 134 / 77; Pulse 74; Resp 18; Temp 97.8; Pulse Ox 98% on R/A; Weight 65.77 kg; la1 14:50 BP 132 / 70; Pulse 77; Resp 17; Temp 97.8; Pulse Ox 98% on R/A; sg [place] Coma Score: 15:17 Eye Response: spontaneous(4). Verbal Response: oriented(5). Motor Response: obeys rn commands(6). Total: 15. ED Course: 13:32 Patient arrived in ED. mr 13:32 None, None is Private Physician. mr 13:39 Triage completed. la1 13:39 Arm band placed on left wrist. la1 13:40 Eduardo Todd MD is Attending Physician. rn 13:50 Patient has correct armband on for positive identification. Bed in low position. Call sg light in reach. Side rails up X2. vehicle monitor technician on. Pulse ox on. NIBP on. Warm blanket given. Head of bed elevated. 14:00 No provider procedures requiring assistance completed. Urine collected: clean catch sg specimen, cloudy. Inserted saline lock: 20 gauge in right antecubital area, using aseptic technique. Blood collected. 14:14 Stevan Painter, RN is Primary Nurse. sg 15:47 IV discontinued, intact, bleeding controlled, No redness/swelling at site. Pressure sg dressing applied. Administered Medications: 14:15 Drug: Reglan 10 mg Route: IVP; Site: right antecubital; sg 14:15 Drug: TORadol 30 mg Route: IVP; Site: right antecubital; sg 14:17 Drug: NS 0.9% 1000 ml Route: IV; Rate: 1000 ml; Site: right antecubital; sg 15:47 Follow up: Response: No adverse reaction; IV Status: Completed infusion sg Outcome: 15:21 Discharge ordered by . rn 15:47 Discharged to home ambulatory, with friend. sg 15:47 Condition: good 15:47 Discharge instructions given to patient, Instructed on discharge instructions, follow up and referral plans. safety practices, Demonstrated understanding of instructions, follow-up care. 15:48 Patient left the ED. sg Signatures: Stevan Painter RN RN sg Rivera, Mary mr Nieto, Roman, MD MD rn Attema, KAUSHIK Wyatt RN la1
--- NOTE | 2018-04-19 15:22 | EDPHYS ---
Physician Documentation [facility] Name: Marita Dangelo Age: 22 yrs Sex: Female : 1995 Arrival Date: 04/19/2018 Time: 13:32 Bed 5 Private MD: None, None ED Physician Eduardo Todd HPI: 04/19 15:17 This 22 yrs old Female presents to ER via Ambulatory with complaints of rn Headache. 15:17 The patient complains of pain to the generalized. The patient describes the headache as rn aching. Onset: The symptoms/episode began/occurred 3 week(s) ago. Severity of symptoms: At its worst the pain was moderate, "similar to past headaches", in the emergency department the pain is unchanged. The patient has experienced similar episodes in the past. The patient has not recently seen a physician. Historical: - Allergies: 13:39 Ciprofloxacin; la1 - PMHx: 13:39 Kidney stones; PCOS; la1 - Immunization history:: Adult Immunizations up to date. - Social history:: Smoking status: Patient/guardian denies using tobacco. - Ebola Screening: : No symptoms or risks identified at this time. - Family history:: not pertinent. - Hospitalizations: : No recent hospitalization is reported. ROS: 15:17 Constitutional: Negative for fever, chills, and weight loss, Eyes: Negative for injury, rn pain, redness, and discharge, Neck: Negative for injury, pain, and swelling, Cardiovascular: Negative for chest pain, palpitations, and edema, Respiratory: Negative for shortness of breath, cough, wheezing, and pleuritic chest pain, Abdomen/GI: Negative for abdominal pain, nausea, vomiting, diarrhea, and constipation, MS/Extremity: Negative for injury and deformity, Skin: Negative for injury, rash, and discoloration, Neuro: + headache Exam: 15:17 Constitutional: This is a well developed, well nourished patient who is awake, alert, rn and in no acute distress. Walked without difficulty to room. Head/Face: Normocephalic, atraumatic. Eyes: Pupils equal round and reactive to light, extra-ocular motions intact. Lids and lashes normal. Conjunctiva and sclera are non-icteric and not injected. Cornea within normal limits. Periorbital areas with no swelling, redness, or edema. ENT: MMM Neck: Trachea midline, no thyromegaly or masses palpated, and no cervical lymphadenopathy. Supple, full range of motion without nuchal rigidity, or vertebral point tenderness. No Meningismus. Skin: Warm, dry with normal turgor. Normal color with no rashes, no lesions, and no evidence of cellulitis. MS/ Extremity: Pulses equal, no cyanosis. Neurovascular intact. Full, normal range of motion. Equal circumference. Neuro: Awake and alert, GCS 15, oriented to person, place, time, and situation. Cranial nerves II-XII grossly intact. Motor strength 5/5 in all extremities. Sensory grossly intact. Cerebellar exam normal. Normal gait. Vital Signs: 13:39 BP 134 / 77; Pulse 74; Resp 18; Temp 97.8; Pulse Ox 98% on R/A; Weight 65.77 kg; la1 14:50 BP 132 / 70; Pulse 77; Resp 17; Temp 97.8; Pulse Ox 98% on R/A; sg [place] Coma Score: 15:17 Eye Response: spontaneous(4). Verbal Response: oriented(5). Motor Response: obeys rn commands(6). Total: 15. MDM: 13:42 Patient medically screened. rn 15:17 Differential diagnosis: migraine, tension headache, vasomotor headache. Data reviewed: rn vital signs, nurses notes, lab test result(s), urinalysis, UPT: and as a result, I will discharge patient. Counseling: I had a detailed discussion with the patient and/or guardian regarding: the historical points, exam findings, and any diagnostic results supporting the discharge/admit diagnosis, lab results, the need for outpatient follow up, to return to the emergency department if symptoms worsen or persist or if there are any questions or concerns that arise at home. Response to treatment: the patient's symptoms have markedly improved after treatment. Special discussion: I discussed with the patient/guardian in detail that at this point there is no indication for admission to the hospital. It is understood, however, that if the symptoms persist or worsen the patient needs to return immediately for re-evaluation. 04/19 14:13 Order name: Urine Dipstick--Ancillary (enter results) ms 04/19 14:13 Order name: Urine --Ancillary (enter results) ms 04/19 13:49 Order name: Urine Test (obtain specimen); Complete Time: 13:58 rn 04/19 13:49 Order name: Urine Dipstick-Ancillary (obtain specimen); Complete Time: 13:58 rn 04/19 13:49 Order name: IV Start; Complete Time: 14:40 rn Administered Medications: 14:15 Drug: Reglan 10 mg Route: IVP; Site: right antecubital; sg 14:15 Drug: TORadol 30 mg Route: IVP; Site: right antecubital; sg 14:17 Drug: NS 0.9% 1000 ml Route: IV; Rate: 1000 ml; Site: right antecubital; sg 15:47 Follow up: Response: No adverse reaction; IV Status: Completed infusion sg Disposition: 04/19/18 15:21 Discharged to Home. Impression: Headache. - Condition is Stable. - Discharge Instructions: Migraine Headache. - Work release form, Medication Reconciliation Form, Thank You Letter, Antibiotic Education, Prescription Opioid Use form. - Follow up: Private Physician; When: As needed; Reason: Recheck today's complaints, Re-evaluation by your physician. - Problem is new. - Symptoms have improved. Signatures: Dispatcher [employer] EDMS Stevan Painter RN RN sg Eduardo Todd MD MD rn Attema, Lee, RN RN la1 Corrections: (The following items were deleted from the chart) 15:48 15:21 04/19/2018 15:21 Discharged to Home. Impression: Headache. Condition is Stable. sg Forms are Medication Reconciliation Form, Thank You Letter, Antibiotic Education, Prescription Opioid Use. Follow up: Private Physician; When: As needed; Reason: Recheck today's complaints, Re-evaluation by your physician. Problem is new. Symptoms have improved. rn
[2018-04-19 17:46] LABS: Urine Blood TRACE (NEG); Urine Glucose NEGATIVE (NEG); Urine Protein TRACE (NEG); Urine Specific Gravity 1.025 (1.005-1.030); Urine pH 5.5 (5.0-7.0)
== END 2018-04-19 15:48 | disposition home or self-care (01) ==
LOC: ER 13:28
DX: R51 Headache (principal); Z88.1 Allergy status to other antibiotic agents
CPT/HCPCS: 81003; 81025; 96361; 96374; 96375; 99284; J2765; J7030

== ENCOUNTER 2018-06-04 19:35 | Emergency (ER) | payer SELFPAY ==
--- OUTSIDE RECORDS SUMMARY | 2018-06-04 19:38 | XMS REPORT | Clinical Summary ---
:1995 Author Organization [facility] Address [address] [place] [address] Care Team Providers Name Role Phone Unavailable Primary Care Provider Unavailable Allergies Active Allergy Reactions Severity Noted Date Comments Ciprofloxacin 02/19/2017 Latex 02/19/2017 Medications Medication Sig Dispensed Refills Start Date End Date Status klvrekpnm-IQ-LF-acetamino Take by mouth. 0 Active phen 28-24-00-650 mg PPkS Active Problems Not on file [...] Not on file Results Not on fileafter 06/03/2017 Insurance Payer Benefit Plan / Subscriber ID Type Phone Address Group MEDICAID - MEDICAID MEDICAID [facility] xxxxxxxxx Medicaid Contracted MGD CARE
--- OUTSIDE RECORDS SUMMARY | 2018-06-04 19:39 | XMS REPORT | Continuity of Care Document ---
[...] left [place] Ankle sprain Active Problem 10/16/2016 [place] Medications Medication Details Route Status Patient Ordering [...] type Reported ciprofloxacin Assertion Drug Active allergy [place] Immunizations Immunization Date Given Site Status Last Updated Comments Source Results Order Name Results Value Reference Date Interpretation Comments Source Range CHEM PANEL Lipase Lvl 78 unit/L 73 - 393 10/13 [place] CHEM PANEL eGFR 111 10/13 Result Comment: [...] not recommended in the following populations: [place] [address] Individuals with unstable creatinine concentrations, including [...] Lvl 8.9 mg/dL 8.5 - 10.5 10/13 [place] CHEM PANEL Total Protein 7.6 g/dL 6.4 - 8.4 10/13 [place] CHEM PANEL Chloride Lvl 107 meq/L 95 - 109 10/13 [place] CHEM PANEL CO2 25 meq/L 24 - 32 10/13 [place] CHEM PANEL Potassium Lvl 3.6 meq/L 3.5 - 5.1 10/13 [place] CHEM PANEL Creatinine 0.76 mg/dL 0.50 - 10/13 MH Lvl 1.40 /2016 [place] CHEM PANEL Sodium Lvl 139 meq/L 135 - 145 10/13 [place] CHEM PANEL Bili Total 0.5 mg/dL 0.2 - 1.3 10/13 [place] CHEM PANEL Alk Phos 91 unit/L 39 - 136 10/13 [place] CHEM PANEL ALT 34 unit/L 0 - 65 10/13 [place] CHEM PANEL Albumin Lvl 3.8 g/dL 3.5 - 5.0 10/13 [place] CHEM PANEL AST 14 unit/L 0 - 37 10/13 [place] CHEM PANEL Glucose Lvl 87 mg/dL 70 - 99 10/13 [place] CHEM PANEL BUN 11 mg/dL 7 - 10/13 [place] CHEM PANEL Globulin 3.8 g/dL 2.7 - 4.2 10/13 [place] CHEM PANEL A/G Ratio 1.0 0.7 - 1.6 10/13 [place] CHEM PANEL AGAP 10.6 meq/L 10.0 - 10/13 20.0 [place] CHEM PANEL B/C Ratio 14 6 - 25 10/13 [place] ENDOCRINOLO S Preg Negative Negative 10/13 [place] *NA* [place] (10/13/16 6:30 PM) HEMATOLOGY Monocytes # 1.2 K/CMM 0.0 - 0.8 10/13 [place] HEMATOLOGY Lymphocytes # 3.2 K/CMM 1.0 - 5.5 10/13 [place] HEMATOLOGY Basophils # 0.0 K/CMM 0.0 - 0.2 10/13 [place] HEMATOLOGY Eosinophils # 0.4 K/CMM 0.0 - 0.5 10/13 [place] HEMATOLOGY Segs-Bands # 9.0 K/CMM 1.5 - 8.1 10/13 [place] HEMATOLOGY Segs 64.9 % 45.0 - 10/13 MH 75.0 /2016 [place] HEMATOLOGY Monocytes 8.6 % 2.0 - 12.0 10/13 [place] HEMATOLOGY Lymphocytes 23.3 % 20.0 - 10/13 MH 40.0 [place] HEMATOLOGY Basophils 0.4 % 0.0 - 1.0 10/13 [place] HEMATOLOGY Eosinophils 2.8 % 0.0 - 4.0 10/13 [place] HEMATOLOGY WBC 13.8 K/CMM 3.7 - 10.4 10/13 [place] HEMATOLOGY MCH 27.7 pg 27.0 - 10/13 MH 31.0 [place] HEMATOLOGY MCHC 32.7 g/dL 32.0 - 10/13 MH 36.0 /2016 [place] HEMATOLOGY Platelet 247 K/CMM 133 - 450 10/13 [place] HEMATOLOGY RDW 16.1 % 11.5 - 10/13 MH 14.5 /2016 [place] HEMATOLOGY MCV 84.8 fL 80.0 - 10/13 MH 98.0 [place] HEMATOLOGY Hct 39.6 % 36.0 - 10/13 MH 48.0 [place] HEMATOLOGY RBC 4.67 M/CMM 4.20 - 10/13 MH 5.40 /2016 [place] HEMATOLOGY Hgb 12.9 g/dL 12.0 - 10/13 16.0 [place] HEMATOLOGY MPV 9.3 fL 7.4 - 10.4 10/13 [place] URINE AND UA Blood Large Negative 10/13 [place] *ABN* [place] (10/13/16 6:30 PM) URINE AND UA Bili Negative Negative 10/13 [place] [place] *NA* [place] (10/13/16 6:30 PM) URINE AND UA Ketones Negative Negative 10/13 [place] mg/dL mg/dL [place] URINE AND UA Glucose Negative Negative 10/13 [place] mg/dL mg/dL [place] URINE AND UA Turbidity Marked Clear 10/13 [facility] [place] *ABN* [place] (10/13/16 6:30 PM) URINE AND UA pH 5.0 5.0 - 8.0 10/13 [place] [place] URINE AND UA Color Yellow Yellow 10/13 [place] *NA* [facility] (10/13/16 6:30 PM) URINE AND UA Protein 30 mg/dL Negative 10/13 [place] mg/dL [place] URINE AND UA Spec Grav 1.029 <=1.030 10/13 [place] URINE AND UA <=1.0 mg/dL 0.1 - 1.0 10/13 [facility] Urobilinogen [place] URINE AND UA CaOx Terri Occasional None Seen 10/13 [place] /HPF /HPF [place] URINE AND UA Mucus Few /LPF None Seen 10/13 [facility] /LPF [place] URINE AND UA Bacteria Occasional None Seen 10/13 [place] /HPF /HPF [place] URINE AND UA WBC 16 /HPF 0 - 5 10/13 [place] URINE AND UA Leuk Est Moderate Negative 10/13 [place] *ABN* [facility] (10/13/16 6:30 PM) URINE AND UA RBC null 0 - 2 10/13 [place] URINE AND UA Sq Epi Many /LPF Few /LPF 10/13 [place] URINE AND UA Nitrite Negative Negative 10/13 [place] (10/13/16 6:30 PM) [facility] ED ED CLINICAL HISTORY: , - right abdominal pain 10/13 - Abdomen/Pel Abdomen/Pelvi /2016 - [place] vis IV s IV contrast [facility] contrast only CT only CT EXAM: [...] pain 10/13 - US US /2016 - [place] EXAM: Right upper quadrant ultrasound 10/13/2016 6:14 [...] Comments Source Systolic (mm Hg) 100 10/14/2016 [place] Diastolic (mm Hg) 61 10/14/2016 [place] Heart Rate 69 10/14/2016 [place] Systolic (mm Hg) 112 10/14/2016 [facility] [place] Diastolic (mm Hg) 62 10/14/2016 [place] Heart Rate 62 10/14/2016 [place] Respitory Rate 16 10/14/2016 [place] Heart Rate 103 10/13/2016 [place] Respitory Rate 20 10/13/2016 [place] Temperature Oral (F) 98.7 F 10/13/2016 [facility] [place] Systolic (mm Hg) 124 10/13/2016 [facility] [place] Diastolic (mm Hg) 78 10/13/2016 [place] Weight 82.682 10/13/2016 [place] Respitory Rate 16 09/19/2016 [facility] [place] Systolic (mm Hg) 99 09/19/2016 [facility] [place] Diastolic (mm Hg) 50 09/19/2016 [place] Temperature Oral (F) 98.0 F 09/19/2016 [place] Heart Rate 68 09/19/2016 [place] Temperature Oral (F) 98.4 F 09/18/2016 [place] Weight 83 09/18/2016 [place] Respitory Rate 17 09/18/2016 [place] Heart Rate 82 09/18/2016 [place] Systolic (mm Hg) 129 09/18/2016 [place] Diastolic (mm Hg) 72 09/18/2016 [place] Encounters Location Location Encounter Encounter Reason Attending ADM DC Status Source Details Type Number For Provider Date Date Visit [facility] [id number] Caleb 09/18 09/19 Vinay Mullen /2016 [place] [facility] [id number] Emmanuel 10/13 10/14 Vinay Oglesby /2016 [place] Procedures Procedure Code Date Perfomer Comments Source
--- OUTSIDE RECORDS SUMMARY | 2018-06-04 19:39 | XMS REPORT ---
:1995 [facility] Address [address] [place] [address] Care Team Providers Name Role Phone Unavailable [...] Comments GONADOTROPIN, CHORIONIC (HCG) QUANT (BEAKER) (test vvbv=172) < mIU/mL 0-10 Non- Females: <10 mIU/mL Females: Gestation Age Reference Range(mIU/mL) 0.2-1 Week 5-50 1-2 Weeks 50-500 2-3 Weeks 100-5,000 3-4Weeks 500-10,000 4 -5 Weeks 1,000-50,000 5-6 Weeks 10,000-100,000 6-8 Weeks 15,000-200,000 2-3 Months 10,000-100,000BASIC METABOLIC [id number] 03:36:00 Test Item Value Reference Range Comments SODIUM (BEAKER) (test 139 meq/L 136-145 zxrk=166) POTASSIUM (BEAKER) (test 4.0 meq/L 3.5-5.1 oytf=734) CHLORIDE (BEAKER) (test 106 meq/L 98-107 ihuv=702) CO2 (BEAKER) (test 23 meq/L 22-29 bzez=672) BLOOD UREA NITROGEN 8 mg/dL 7-21 (BEAKER) (test fxir=394) CREATININE (BEAKER) (test 0.78 mg/dL 0.57-1.25 ptjk=256) GLUCOSE RANDOM (BEAKER) 95 mg/dL 70-105 (test npvv=599) CALCIUM (BEAKER) (test 9.7 mg/dL 8.4-10.2 spij=293) EGFR (BEAKER) (test 92 mL/min/1.73 sq m ESTIMATED GFR IS NOT gkmi=8146) ACCURATE CREATININE CLEARANCE IN PREDICTING GLOMERULAR FILTRATION RATE. ESTIMATED GFR IS NOT APPLICABLE FOR DIALYSIS PATIENTS. CBC W/PLT COUNT & AUTO [id number] 02:53:00 Test Item Value Reference Range Comments WHITE BLOOD CELL COUNT (BEAKER) (test mgbx=110) 10.0 K/ L 3.5-10.5 RED BLOOD CELL COUNT (BEAKER) (test jggv=263) 4.50 M/ L 3.93-5.22 HEMOGLOBIN (BEAKER) (test mftw=427) 13.2 GM/DL 11.2-15.7 HEMATOCRIT (BEAKER) (test jdsd=485) 39.9 % 34.1-44.9 MEAN CORPUSCULAR VOLUME (BEAKER) (test lsmx=147) 88.7 fL 79.4-94.8 MEAN CORPUSCULAR HEMOGLOBIN (BEAKER) (test 29.3 pg 25.6-32.2 ousg=676) MEAN CORPUSCULAR HEMOGLOBIN CONC (BEAKER) (test 33.1 GM/DL 32.2-35.5 lhph=034) RED CELL DISTRIBUTION WIDTH (BEAKER) (test 13.5 % 11.7-14.4 vqtj=709) PLATELET COUNT (BEAKER) (test sijy=667) 227 K/CU MM 150-450 MEAN PLATELET VOLUME (BEAKER) (test ysrg=952) 10.5 fL 9.4-12.3 NUCLEATED RED BLOOD CELLS (BEAKER) (test 0 /100 WBC 0-0 zcoh=392) NEUTROPHILS RELATIVE PERCENT (BEAKER) (test 46 % aztf=183) LYMPHOCYTES RELATIVE PERCENT (BEAKER) (test 35 % knpp=661) MONOCYTES RELATIVE PERCENT (BEAKER) (test 10 % vymb=285) EOSINOPHILS RELATIVE PERCENT (BEAKER) (test 8 % mndd=590) BASOPHILS RELATIVE PERCENT (BEAKER) (test 1 % wcgf=414) NEUTROPHILS ABSOLUTE COUNT (BEAKER) (test 4.60 K/ L 1.56-6.13 xegg=798) LYMPHOCYTES ABSOLUTE COUNT (BEAKER) (test 3.51 K/ L 1.18-3.74 nezp=267) MONOCYTES ABSOLUTE COUNT (BEAKER) (test 0.98 K/ L 0.24-0.36 ptyx=670) EOSINOPHILS ABSOLUTE COUNT (BEAKER) (test 0.79 K/ L 0.04-0.36 ftoe=230) BASOPHILS ABSOLUTE COUNT (BEAKER) (test 0.07 K/ L 0.01-0.08 ffao=234) IMMATURE GRANULOCYTES-RELATIVE PERCENT (BEAKER) 0 % 0-1 (test qjmr=1282) URINALYSIS W/ [id number] 22:40:00 Test Item Value Reference Range Comments COLOR (BEAKER) (test xgyr=609) [place] CLARITY (BEAKER) (test lhqo=521) Hazy SPECIFIC GRAVITY UA (BEAKER) (test 1.021 1.001-1.035 hxoc=643) PH UA (BEAKER) (test bqbf=748) 6.5 5.0-8.0 PROTEIN UA (BEAKER) (test exax=551) 50 mg/dL Negative GLUCOSE UA (BEAKER) (test blwf=653) Negative Negative KETONES UA (BEAKER) (test upnk=516) Trace Negative BILIRUBIN UA (BEAKER) (test zjpr=897) Negative Negative BLOOD UA (BEAKER) (test wfwh=599) Large Negative NITRITE UA (BEAKER) (test nwmy=047) Negative Negative LEUKOCYTE ESTERASE UA (BEAKER) (test Moderate Negative vvbd=683) UROBILINOGEN UA (BEAKER) (test rupk=233) 4.0 mg/dL 0.2-1.0 RBC UA (BEAKER) (test xzee=667) > /HPF WBC UA (BEAKER) (test dzwm=977) 23 /HPF MUCUS (BEAKER) (test sygn=1402) Many SQUAMOUS EPITHELIAL (BEAKER) (test 5 /HPF knap=352) SOURCE(BEAKER) (test jjiy=6187) Urine, Clean Catch SCREEN, [id number] 22:34:00 Test Item Value Reference Range Comments TEST URINE (BEAKER) (test tgdd=157) Negative
--- NOTE | 2018-06-04 20:15 | ER ---
Nurse's Notes [facility] Name: Marita Dangelo Age: 22 yrs Sex: Female : 1995 Arrival Date: 06/04/2018 Time: 19:36 Bed Waiting Private MD: Glenn Mena Diagnosis: Historical: ED Course: 06/04 19:36 Patient arrived in ED. es 19:37 Glenn Mena MD is Private Physician. es 19:51 Patient's name was called from ER lobby. No response. aj1 19:54 Triage completed. aj1 20:05 Patient's name was called from ER lobby. No response. aj1 20:14 Patient's name was called from ER lobby. No response. Unable to locate patient. Will aj1 disposition as left without being seen by a provider. Administered Medications: No medications were administered Outcome: 20:15 Patient left the ED. aj1 Signatures: Suzy Hicks RN RN aj1 Esther Quintero Corrections: (The following items were deleted from the chart) 19:57 19:56 General: Appears in no apparent distress. uncomfortable, Behavior is calm, aj1 cooperative, appropriate for age, aj1 19:57 19:56 Pain: Complains of pain in left eye and left leg Pain currently is 1 out of 10 on aj1 a pain scale. aj1 19:57 19:56 Neuro: Level of Consciousness is awake, alert, obeys commands, aj1 aj1 19:57 19:56 Cardiovascular: Patient's skin is warm and dry. aj1 aj1 19:57 19:56 Respiratory: Airway is patent Respiratory effort is even, unlabored, Respiratory aj1 pattern is regular, symmetrical, aj1 :58 19:52 Presenting complaint: Patient states: "I fell out bed today" When he fell he hit aj1 his left eye and it bled for a little bit and he also hurt his left knee. Reports that this happened at 1600 today. Laceration noted to left upper eye area, no longer bleeding. Patient denies taking blood thinners, denies LOC, denies vomiting aj1 19:58 19:52 Transition of care: patient was not received from another setting of care. aj1 aj1 :58 19:52 Onset of symptoms was June 04, 2018 at 16:00 aj1 aj1 19:58 19:52 Risk Assessment: Do you want to hurt yourself or someone else? Patient reports no [facility] desire to harm self or others. [facility] 19:52 Initial Sepsis Screen: Does the patient meet any 2 criteria? No. Patient's [facility] initial sepsis screen is negative. Does the patient have a suspected source of infection? No. Patient's initial sepsis screen is negative. [facility] 19:52 Care prior to arrival: None. [place] [address] 19:52 Method Of Arrival: Wheelchair [place] [address] 19:52 Acuity: DASH 3 [place] [address] 19:56 Allergies: Ciprofloxacin; [place] [address] 19:56 Home Meds: Levodopa Oral; [place] [address] 19:56 PMHx: Kidney stones; [place] [address] 19:56 PMHx: PCOS; [place] [address] 19:56 PMHx: Parkinsons; [place] [address] 58 19:56 Immunization history: Last tetanus immunization: up to date [place] [address] 19:56 Social history: Smoking status: Patient/guardian denies using tobacco, [place] [address] 19:56 Ebola Screening: Patient denies travel to an Ebola-affected area in the 21 days aj1 before illness onset aj1
== END 2018-06-04 20:15 | disposition left against medical advice (07) ==
LOC: ER 19:35
DX: Z53.21 Procedure and treatment not carried out due to patient leaving prior to being seen by health care provider (principal)
CPT/HCPCS: 99281

== ENCOUNTER 2019-01-13 08:09 | Emergency (ER) | payer SELFPAY ==
[2019-01-13] MEDS ORDERED: MORPHINE 4 MG/ML SYR ONE (08:45)
[2019-01-13] MEDS ORDERED: ONDANSETRON 4 MG/2 ML VIAL ONE (08:45)
[2019-01-13] MEDS ORDERED: NA CHLORIDE 0.9% 1,000 ML ONE (08:45)
[2019-01-13 08:51] LABS: Absolute Lymphocytes (CBC) 1.9 K/uL (0.7-4.9); Basophils % 0.7 % (0-1.3); Hematocrit 38.2 % (36.0-45.0); Lymphocytes % 18.5 % (15.3-44.8); MPV 9.3 fL (7.6-11.3)
--- NOTE | 2019-01-13 09:07 | RAD REPORT ---
EXAM DESCRIPTION: CT - Stone Protocol - 01/13/2019 8:46 am CLINICAL HISTORY: Abdominal pain. Left flank pain COMPARISON: None. TECHNIQUE: Computed axial tomography of the abdomen pelvis was obtained without oral or IV contrast. Lack of IV and oral contrast limits evaluation of solid organs, bowel, and vessels. Coronal reformat jayy images were obtained and reviewed. All CT scans are performed using dose optimization technique as appropriate and may include automated exposure control or mA/KV adjustment according to patient size. FINDINGS: Multiple, bilateral renal calculi. Largest in the right kidney measures 8 millimeters. No right hydronephrosis. Mild to moderate left hydronephrosis. 5 millimeter calculus is present the proximal left ureter Houns field unit 1064 The liver, spleen, pancreas and adrenals appear grossly normal There is no evidence of diverticulitis. The appendix appears normal Mild enlargement of the left ovary. Small amount of free fluid IMPRESSION: 5 millimeter calculus proximal left ureter resulting mild to moderate left hydronephrosi s Mild enlargement of the left ovary. Follow-up pelvic ultrasound in approximately 6 weeks recommended for re-evaluation
[2019-01-13 09:08] LABS: Albumin 3.8 g/dL (3.4-5.0); Bilirubin Direct 0.2 mg/dL (0-0.2); Bilirubin Total 0.7 mg/dL (0.2-1.0); Potassium 4.1 mmol/L (3.5-5.1); Protein, Total 7.2 g/dL (6.4-8.2)
[2019-01-13 09:57] LABS: Urine Blood 2+ (NEG); Urine Glucose NEGATIVE (NEG); Urine Protein 1+ (NEG); Urine pH 7.5 (5.0-7.0)
[2019-01-13] MEDS ORDERED: TAMSULOSIN 0.4 MG SR CAP ONE (10:39)
[2019-01-13] MEDS ORDERED: KETOROLAC 30 MG/ML INJ ONE (10:39)
--- NOTE | 2019-01-13 10:47 | ER ---
Nurse's Notes [facility] Name: Marita Dangelo Age: 23 yrs Sex: Female : 1995 Arrival Date: 01/13/2019 Time: 08:11 Bed 7 Private MD: Diagnosis: Calculus of kidney and ureter Presentation: 01/13 08:19 Presenting complaint: Patient states: Pt crying, reports left flank pain radiates jl7 around to LLQ, pain rated 10/10. Transition of care: patient was not received from another setting of care. Onset of symptoms was January 13, 2019. Risk Assessment: Do you want to hurt yourself or someone else? Patient reports no desire to harm self or others. Initial Sepsis Screen: Does the patient meet any 2 criteria? No. Patient's initial sepsis screen is negative. Does the patient have a suspected source of infection? No. Patient's initial sepsis screen is negative. Care prior to arrival: None. 08:19 Method Of Arrival: Ambulatory [facility] 08:19 Acuity: DASH 3 jl7 Triage Assessment: 08:21 General: Appears in no apparent distress. uncomfortable, ill, unkempt, well developed, jl7 Behavior is cooperative, anxious, crying. Pain: Complains of pain in left flank Pain radiates to LLQ Pain currently is 10 out of 10 on a pain scale. Quality of pain is described as sharp, Pain began 1 hour ago. Is continuous. Neuro: Level of Consciousness is awake, alert, obeys commands. Cardiovascular: Patient's skin is warm and dry. Respiratory: Airway is patent Respiratory effort is even, unlabored, Respiratory pattern is regular, symmetrical. GI: Abdomen is round non-distended. : Reports pain in left flank(s). Derm: Skin is pink, warm \T\ dry. Musculoskeletal: No signs and/or symptoms reported regarding the musculoskeletal system. 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 - Social history:: Smoking status: Patient uses tobacco products, smokes 0.25 packs per day. - Ebola Screening: : No symptoms or risks identified at this time. Screenin:24 Abuse screen: Denies threats or abuse. Denies injuries from another. Nutritional jl7 screening: No deficits noted. Tuberculosis screening: No symptoms or risk factors identified. Fall Risk None identified. Assessment: 08:24 General: See triage assessment. jl7 11:13 Reassessment: Patient appears in no apparent distress at this time. No changes from tw2 previously documented assessment. Patient and/or family updated on plan of care and expected duration. Pain level reassessed. Patient is alert, oriented x 3, equal unlabored respirations, skin warm/dry/pink. Vital Signs: 08:21 BP 122 / 70; Pulse 82; Resp 16 S; Temp 97.8(O); Pulse Ox 100% on R/A; Pain 10/10; jl7 08:50 BP 110 / 60; Pulse 55; Resp 16 S; Pulse Ox 100% on R/A; jl7 09:34 BP 98 / 52; Pulse 59; Resp 16 S; Pulse Ox 100% on R/A; jl7 10:43 BP 98 / 54; Pulse 66; Resp 15; Temp 97.6(TE); Pulse Ox 100% on R/A; mh5 11:13 BP 100 / 57; Pulse 67; Resp 18; Pulse Ox 99% on R/A; tw2 ED Course: 08:11 Patient arrived in ED. as 08:11 Viktoriya Maciel RN is Primary Nurse. jl7 08:16 Chencho Underwood NP is PHCP. pm1 08:16 Swapnil South MD is Attending Physician. pm1 08:20 Triage completed. jl7 08:21 Arm band placed on left wrist. jl7 08:24 Patient has correct armband on for positive identification. Placed in gown. Bed in low jl7 position. Call light in reach. Side rails up X 1. Pulse ox on. NIBP on. Warm blanket given. 08:30 No provider procedures requiring assistance completed. Initial lab(s) drawn, by ne, [email or web address] sent to lab. Inserted saline lock: 22 gauge in right antecubital area, using aseptic technique. Blood collected. 08:34 Urine collected: clean catch specimen, cloudy. 5 08:34 Urine --Ancillary (enter results) Sent. 5 08:35 Urine Dipstick--Ancillary (enter results) Sent. 5 08:47 CT Stone Protocol In Process Unspecified. EDMS 10:45 Celestino Lyn MD is Referral Physician. pm1 11:14 IV discontinued, intact, bleeding controlled, No redness/swelling at site. Pressure tw2 dressing applied. Administered Medications: 08:50 Drug: NS 0.9% 1000 ml Route: IV; Rate: 1000 ml; Site: right antecubital; jl7 11:13 Follow up: Response: No adverse reaction; IV Status: Completed infusion; IV Intake: tw2 1000ml 08:51 Drug: Zofran 4 mg Route: IVP; Site: right antecubital; jl7 09:00 Follow up: Response: No adverse reaction; Nausea is decreased jl7 08:55 Drug: morphine 4 mg Route: IVP; Site: right antecubital; jl7 09:15 Follow up: Response: No adverse reaction; Pain is decreased jl7 10:45 Drug: Ketorolac 15 mg Route: IVP; Site: right antecubital; jl7 10:51 Follow up: Response: No adverse reaction jl7 10:45 Drug: Flomax 0.4 mg Route: PO; jl7 10:51 Follow up: Response: No adverse reaction jl7 Intake: 11:13 IV: 1000ml; Total: 1000ml. tw2 Outcome: 10:47 Discharge ordered by . pm1 11:13 Discharged to home ambulatory. tw2 11:13 Condition: stable 11:13 Discharge instructions given to patient, Instructed on discharge instructions, follow up and referral plans. no drinking with medication, no driving heavy equipment, medication usage, Demonstrated understanding of instructions, follow-up care, medications, Prescriptions given X 3. 11:14 Patient left the ED. tw2 Signatures: Dispatcher [employer] Nasima Escobar Patrick, REEMA AUTO REBUILDER pm1 Fiona Omer RN RN tw2 Arelis Marte 5 Viktoriya Maciel RN RN jl7
--- NOTE | 2019-01-13 10:48 | EDPHYS ---
Physician Documentation [facility] Name: Marita Dangelo Age: 23 yrs Sex: Female : 1995 Arrival Date: 01/13/2019 Time: 08:11 Bed 7 Private MD: ED Physician Swapnil South HPI: 01/13 08:49 This 23 yrs old Female presents to ER via Ambulatory with complaints of pm1 Possible Kidney Stone. 08:49 The patient complains of pain in the left low back. The pain does not radiate. Onset: pm1 The symptoms/episode began/occurred this morning. Modifying factors: The symptoms are alleviated by nothing. the symptoms are aggravated by nothing. Associated signs and symptoms: Pertinent positives: nausea, Pertinent negatives: diarrhea, dysuria, fever, vomiting. Severity of pain: in the emergency department the pain is actually worse. The patient has experienced similar episodes in the past, a few times, and the symptoms today are exactly the same, to previous kidney stones. The patient has not recently seen a physician. 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 - Social history:: Smoking status: Patient uses tobacco products, smokes 0.25 packs per day. - Ebola Screening: : No symptoms or risks identified at this time. ROS: 08:49 Constitutional: Negative for fever, chills, and weight loss, Eyes: Negative for injury, pm1 pain, redness, and discharge, ENT: Negative for injury, pain, and discharge, Neck: Negative for injury, pain, and swelling, Cardiovascular: Negative for chest pain, palpitations, and edema, Respiratory: Negative for shortness of breath, cough, wheezing, and pleuritic chest pain. 08:49 : Negative for injury, bleeding, discharge, and swelling, MS/Extremity: Negative for injury and deformity, Skin: Negative for injury, rash, and discoloration, Neuro: Negative for headache, weakness, numbness, tingling, and seizure. 08:49 Abdomen/GI: Positive for nausea, Negative for abdominal pain, vomiting, diarrhea. 08:49 Back: Positive for flank pain, on the left. Exam: 08:49 Constitutional: This is a well developed, well nourished patient who is awake, alert, pm1 and in no acute distress. Head/Face: Normocephalic, atraumatic. Eyes: Pupils equal round and reactive to light, extra-ocular motions intact. Lids and lashes normal. Conjunctiva and sclera are non-icteric and not injected. Cornea within normal limits. Periorbital areas with no swelling, redness, or edema. ENT: Nares patent. No nasal discharge, no septal abnormalities noted. Tympanic membranes are normal and external auditory canals are clear. Oropharynx with no redness, swelling, or masses, exudates, or evidence of obstruction, uvula midline. Mucous membranes moist. Neck: Trachea midline, no thyromegaly or masses palpated, and no cervical lymphadenopathy. Supple, full range of motion without nuchal rigidity, or vertebral point tenderness. No Meningismus. Chest/axilla: Normal chest wall appearance and motion. Nontender with no deformity. No lesions are appreciated. Cardiovascular: Regular rate and rhythm with a normal S1 and S2. No gallops, murmurs, or rubs. Normal PMI, no JVD. No pulse deficits. Respiratory: Lungs have equal breath sounds bilaterally, clear to auscultation and percussion. No rales, rhonchi or wheezes noted. No increased work of breathing, no retractions or nasal flaring. Abdomen/GI: Soft, non-tender, with normal bowel sounds. No distension or tympany. No guarding or rebound. No evidence of tenderness throughout. 08:49 Skin: Warm, dry with normal turgor. Normal color with no rashes, no lesions, and no evidence of cellulitis. MS/ Extremity: Pulses equal, no cyanosis. Neurovascular intact. Full, normal range of motion. 08:49 Back: CVA tenderness, is noted on the left. 08:49 Neuro: Orientation: is normal, Motor: moves all fours. Vital Signs: 08:21 BP 122 / 70; Pulse 82; Resp 16 S; Temp 97.8(O); Pulse Ox 100% on R/A; Pain 10/10; jl7 08:50 BP 110 / 60; Pulse 55; Resp 16 S; Pulse Ox 100% on R/A; jl7 09:34 BP 98 / 52; Pulse 59; Resp 16 S; Pulse Ox 100% on R/A; jl7 10:43 BP 98 / 54; Pulse 66; Resp 15; Temp 97.6(TE); Pulse Ox 100% on R/A; mh5 11:13 BP 100 / 57; Pulse 67; Resp 18; Pulse Ox 99% on R/A; tw2 MDM: 08:31 Patient medically screened. pm1 10:45 Data reviewed: vital signs. Data interpreted: Pulse oximetry: on room air is 100 %. pm1 Interpretation: normal. Counseling: I had a detailed discussion with the patient and/or guardian regarding: the historical points, exam findings, and any diagnostic results supporting the discharge/admit diagnosis, lab results, radiology results, the need for outpatient follow up, a urologist, to return to the emergency department if symptoms worsen or persist or if there are any questions or concerns that arise at home. 01/13 08:34 Order name: Urine Dipstick--Ancillary (enter results); Complete Time: 10:00 em1 01/13 08:34 Order name: Urine --Ancillary (enter results); Complete Time: 10:00 em1 01/13 08:36 Order name: Basic Metabolic Panel; Complete Time: 09:13 pm1 01/13 08:36 Order name: CBC with Diff; Complete Time: 09:13 pm1 01/13 08:36 Order name: Creatinine for Radiology; Complete Time: 09:13 pm1 01/13 08:36 Order name: Hepatic Function; Complete Time: 09:13 pm1 01/13 08:36 Order name: Lipase; Complete Time: 09:13 pm1 01/13 08:36 Order name: IV Saline Lock; Complete Time: 09:33 pm1 01/13 08:36 Order name: CT Stone Protocol; Complete Time: 09:26 pm1 01/13 08:36 Order name: Labs collected and sent; Complete Time: 09:33 pm1 Administered Medications: 08:50 Drug: NS 0.9% 1000 ml Route: IV; Rate: 1000 ml; Site: right antecubital; jl7 11:13 Follow up: Response: No adverse reaction; IV Status: Completed infusion; IV Intake: tw2 1000ml 08:51 Drug: Zofran 4 mg Route: IVP; Site: right antecubital; jl7 09:00 Follow up: Response: No adverse reaction; Nausea is decreased jl7 08:55 Drug: morphine 4 mg Route: IVP; Site: right antecubital; jl7 09:15 Follow up: Response: No adverse reaction; Pain is decreased jl7 10:45 Drug: Ketorolac 15 mg Route: IVP; Site: right antecubital; jl7 10:51 Follow up: Response: No adverse reaction jl7 10:45 Drug: Flomax 0.4 mg Route: PO; jl7 10:51 Follow up: Response: No adverse reaction jl7 Disposition: 16:52 Co-signature as Attending Physician, Swapnil South MD I agree with the assessment and kdr plan of care. Disposition: 01/13/19 10:47 Discharged to Home. Impression: Calculus of kidney and ureter. - Condition is Stable. - Discharge Instructions: Kidney Stones, Dietary Guidelines to Help Prevent Kidney Stones. - Prescriptions for Tylenol- Codeine #3 300-30 mg Oral Tablet - take 2 tablet by ORAL route every 6 hours As needed; 30 tablet. Zofran 4 mg Oral Tablet - take 1 tablet by ORAL route every 12 hours As needed; 20 tablet. Flomax 0.4 mg Oral Capsule, Sust. Release 24 hr - take 1 capsule by ORAL route once daily 1/2 hour following the same meal each day; 10 capsule. - Medication Reconciliation Form, Thank You Letter, Antibiotic Education, Prescription Opioid Use form. - Follow up: Emergency Department; When: As needed; Reason: Worsening of condition. Follow up: Celestino Lyn MD; When: 2 - 3 days; Reason: Recheck today's complaints, Continuance of care, Re-evaluation by your physician. - Problem is new. - Symptoms have improved. Signatures: Dispatcher [employer] EDMS Swapnil South MD MD kdr Marinas, Patrick, NP INSECTICIDE SPRAYER pm1 Fiona Omer RN RN tw2 Viktoriya Maciel RN RN jl7 Corrections: (The following items were deleted from the chart) 11:14 10:47 01/13/2019 10:47 Discharged to Home. Impression: Calculus of kidney and ureter. tw2 Condition is Stable. Forms are Medication Reconciliation Form, Thank You Letter, Antibiotic Education, Prescription Opioid Use. Follow up: Emergency Department; When: As needed; Reason: Worsening of condition. Follow up: Celestino Lyn; When: 2 - 3 days; Reason: Recheck today's complaints, Continuance of care, Re-evaluation by your physician. Problem is new. Symptoms have improved. pm1
[2019-01-13 11:22] VITALS: TEMP 97.6
[2019-01-13 11:23] VITALS: BP 100/57; O2SAT 99
== END 2019-01-13 11:14 | disposition home or self-care (01) ==
LOC: ER 08:09
DX: N20.2 Calculus of kidney with calculus of ureter (principal); F17.210 Nicotine dependence, cigarettes, uncomplicated; Z88.1 Allergy status to other antibiotic agents
CPT/HCPCS: 36415; 74176; 76377; 80048; 80076; 81003; 81025; 83690; 85025; 96361; 96374; 96375; 99284; J2405; J7030

== ENCOUNTER 2019-04-04 08:52 | Emergency (ER) | payer BC ==
--- OUTSIDE RECORDS SUMMARY | 2019-04-04 08:55 | XMS REPORT ---
:1995 Author Organization [facility] Address [address] [place] [address] Care Team Providers Name Role Phone Unavailable [...] Comments GONADOTROPIN, CHORIONIC (HCG) QUANT (BEAKER) (test bazs=319) < mIU/mL 0-10 Non- Females: <10 mIU/mL Females: Gestation Age Reference Range(mIU/mL) 0.2-1 Week 5-50 1-2 Weeks 50-500 2-3 Weeks 100-5,000 3-4Weeks 500-10,000 4 -5 Weeks 1,000-50,000 5-6 Weeks 10,000-100,000 6-8 Weeks 15,000-200,000 2-3 Months 10,000-100,000BASIC METABOLIC [id number] 03:36:00 Test Item Value Reference Range Comments SODIUM (BEAKER) (test 139 meq/L 136-145 xlgo=858) POTASSIUM (BEAKER) (test 4.0 meq/L 3.5-5.1 pouu=813) CHLORIDE (BEAKER) (test 106 meq/L 98-107 lssp=049) CO2 (BEAKER) (test 23 meq/L 22-29 fyhl=314) BLOOD UREA NITROGEN 8 mg/dL 7-21 (BEAKER) (test gicm=113) CREATININE (BEAKER) (test 0.78 mg/dL 0.57-1.25 gywx=603) GLUCOSE RANDOM (BEAKER) 95 mg/dL 70-105 (test zknn=625) CALCIUM (BEAKER) (test 9.7 mg/dL 8.4-10.2 tluf=156) EGFR (BEAKER) (test 92 mL/min/1.73 sq m ESTIMATED GFR IS NOT eyer=2757) ACCURATE CREATININE CLEARANCE IN PREDICTING GLOMERULAR FILTRATION RATE. ESTIMATED GFR IS NOT APPLICABLE FOR DIALYSIS PATIENTS. CBC W/PLT COUNT & AUTO [id number] 02:53:00 Test Item Value Reference Range Comments WHITE BLOOD CELL COUNT (BEAKER) (test xrle=768) 10.0 K/ L 3.5-10.5 RED BLOOD CELL COUNT (BEAKER) (test qgsq=694) 4.50 M/ L 3.93-5.22 HEMOGLOBIN (BEAKER) (test tkug=832) 13.2 GM/DL 11.2-15.7 HEMATOCRIT (BEAKER) (test scuk=911) 39.9 % 34.1-44.9 MEAN CORPUSCULAR VOLUME (BEAKER) (test qoxt=447) 88.7 fL 79.4-94.8 MEAN CORPUSCULAR HEMOGLOBIN (BEAKER) (test 29.3 pg 25.6-32.2 qgyn=458) MEAN CORPUSCULAR HEMOGLOBIN CONC (BEAKER) (test 33.1 GM/DL 32.2-35.5 hpfn=610) RED CELL DISTRIBUTION WIDTH (BEAKER) (test 13.5 % 11.7-14.4 eazk=850) PLATELET COUNT (BEAKER) (test hllc=771) 227 K/CU MM 150-450 MEAN PLATELET VOLUME (BEAKER) (test omju=303) 10.5 fL 9.4-12.3 NUCLEATED RED BLOOD CELLS (BEAKER) (test 0 /100 WBC 0-0 sjaj=387) NEUTROPHILS RELATIVE PERCENT (BEAKER) (test 46 % fdxk=070) LYMPHOCYTES RELATIVE PERCENT (BEAKER) (test 35 % agrw=635) MONOCYTES RELATIVE PERCENT (BEAKER) (test 10 % xose=209) EOSINOPHILS RELATIVE PERCENT (BEAKER) (test 8 % jrdr=322) BASOPHILS RELATIVE PERCENT (BEAKER) (test 1 % fvba=753) NEUTROPHILS ABSOLUTE COUNT (BEAKER) (test 4.60 K/ L 1.56-6.13 kcrz=345) LYMPHOCYTES ABSOLUTE COUNT (BEAKER) (test 3.51 K/ L 1.18-3.74 xcxp=250) MONOCYTES ABSOLUTE COUNT (BEAKER) (test 0.98 K/ L 0.24-0.36 wwwl=324) EOSINOPHILS ABSOLUTE COUNT (BEAKER) (test 0.79 K/ L 0.04-0.36 gqze=985) BASOPHILS ABSOLUTE COUNT (BEAKER) (test 0.07 K/ L 0.01-0.08 piop=752) IMMATURE GRANULOCYTES-RELATIVE PERCENT (BEAKER) 0 % 0-1 (test lxcl=7424) URINALYSIS W/ [id number] 22:40:00 Test Item Value Reference Range Comments COLOR (BEAKER) (test ltjb=847) [place] CLARITY (BEAKER) (test vxzn=071) Hazy SPECIFIC GRAVITY UA (BEAKER) (test 1.021 1.001-1.035 wsfr=003) PH UA (BEAKER) (test hhwm=061) 6.5 5.0-8.0 PROTEIN UA (BEAKER) (test ntzy=889) 50 mg/dL Negative GLUCOSE UA (BEAKER) (test mzfy=958) Negative Negative KETONES UA (BEAKER) (test ubmu=779) Trace Negative BILIRUBIN UA (BEAKER) (test mnlo=091) Negative Negative BLOOD UA (BEAKER) (test zgrd=802) Large Negative NITRITE UA (BEAKER) (test idat=361) Negative Negative LEUKOCYTE ESTERASE UA (BEAKER) (test Moderate Negative qzso=763) UROBILINOGEN UA (BEAKER) (test adan=605) 4.0 mg/dL 0.2-1.0 RBC UA (BEAKER) (test lwzz=730) > /HPF WBC UA (BEAKER) (test njed=765) 23 /HPF MUCUS (BEAKER) (test dfnl=0651) Many SQUAMOUS EPITHELIAL (BEAKER) (test 5 /HPF tmsp=835) SOURCE(BEAKER) (test nywc=3487) Urine, Clean Catch SCREEN, [id number] 22:34:00 Test Item Value Reference Range Comments TEST URINE (BEAKER) (test umds=567) Negative
[2019-04-04 09:38] LABS: Absolute Lymphocytes (CBC) 1.2 K/uL (0.7-4.9); Basophils % 0.1 % (0-1.3); Hematocrit 38.3 % (36.0-45.0); Lymphocytes % 8.5 % (15.3-44.8); MPV 8.7 fL (7.6-11.3); RBC Red Blood Cell Count 4.28 M/uL (3.86-4.86)
[2019-04-04] MEDS ORDERED: NA CHLORIDE 0.9% 1,000 ML ONE (09:41)
[2019-04-04] MEDS ORDERED: KETOROLAC 30 MG/ML INJ ONE (09:41)
[2019-04-04 09:42] LABS: Albumin 4.2 g/dL (3.4-5.0); Bilirubin Direct 0.2 mg/dL (0-0.2); Bilirubin Total 0.6 mg/dL (0.2-1.0); Protein, Total 7.8 g/dL (6.4-8.2)
[2019-04-04] MEDS ORDERED: FENTANYL CITR 100 MCG/2 ML ONE (09:44)
[2019-04-04 09:54] LABS: Urine Blood 2+ (NEG); Urine Glucose NEGATIVE (NEG); Urine Protein 1+ (NEG); Urine pH 7.5 (5.0-7.0)
--- NOTE | 2019-04-04 10:31 | RAD REPORT ---
EXAM DESCRIPTION: CT - Stone Protocol - 04/04/2019 10:00 am CLINICAL HISTORY: Flank pain. Kidney stones;Abd pain COMPARISON: Stone Protocol dated 01/13/2019 TECHNIQUE: Axial images were obtained without oral or IV contrast. Lack of contrast limits solid org an and vascular assessment. The eusiz-mn-xled spans the entirety of the system partially obscuring uppermost abdomen and lung bases. Coronal reformatted images were obtained and reviewed. All CT scans are performed using dose optimization technique as appropriate and may include automated exposure control or mA/KV adjustment according to patient size. FINDINGS: The lower lung veloz are clear. Imaged portions of the liver and spleen show no suspicious findings on non-contrast imaging. The panc reas and adrenal glands are normal. No pathologic lymphadenopathy in the abdomen or pelvis. 7 mm stone is present proximal right ureter (1300 HU) with moderate right hydronephrosis. Additional punctate calculus is seen superior calyx right kidney. No bowel obstruction, free air, free fluid or abscess. Normal appendix noted. No significant bony abnormality. IMPRESSION: 7 mm stone proximal right ureter with moderate right hydronephrosis.
[2019-04-04] MEDS ORDERED: CEFTRIAXONE/SWI 1gm 1 GM/10 ML SYR ONE (10:32)
[2019-04-04] MEDS ORDERED: MAGNESIUM SULFATE 1 gm IVPB 1 GM/100 ML BAG IV ONE (10:53)
--- NOTE | 2019-04-04 12:38 | ER ---
Nurse's Notes [facility] Name: Marita Dangelo Age: 23 yrs Sex: Female : 1995 Arrival Date: 04/04/2019 Time: 08:53 Bed 18 Private MD: Diagnosis: Hydronephrosis with renal and ureteral calculous obstruction Presentation: 04/04 08:59 Presenting complaint: Patient states: RLQ pain that radiates towards R low back that ss began last night. Is continuous. Also c/o N/V. Pt thought it was her PCOS, but reports that this is different. Transition of care: patient was not received from another setting of care. Onset of symptoms was April 03, 2019. Risk Assessment: Do you want to hurt yourself or someone else? Patient reports no desire to harm self or others. Initial Sepsis Screen: Does the patient meet any 2 criteria? No. Patient's initial sepsis screen is negative. Does the patient have a suspected source of infection? No. Patient's initial sepsis screen is negative. Care prior to arrival: None. 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 - Social history:: Smoking status: Patient/guardian denies using tobacco. - Ebola Screening: : Patient denies exposure to infectious person Patient denies travel to an Ebola-affected area in the 21 days before illness onset. Screenin:02 Abuse screen: Denies threats or abuse. Nutritional screening: No deficits noted. tw2 Tuberculosis screening: No symptoms or risk factors identified. Fall Risk None identified. Assessment: 09:05 General: Appears uncomfortable, Behavior is cooperative, Denies fever. Pain: Complains rb1 of pain in right lower quadrant Pain currently is 10 out of 10 on a pain scale. Pain began last night. Neuro: Level of Consciousness is awake, alert, obeys commands, Oriented to person, place, time, situation. Cardiovascular: Capillary refill < 3 seconds is brisk in bilateral fingers. Respiratory: Airway is patent Respiratory effort is even, unlabored, Respiratory pattern is regular, symmetrical. GI: Bowel sounds present X 4 quads. Reports nausea, vomiting, since last night. : No signs and/or symptoms were reported regarding the genitourinary system. Derm: Skin is pink, warm \T\ dry. 09:05 GI: Abd is soft Abdomen is tender to palpation in right lower quadrant. rb1 10:01 Reassessment: Patient appears in no apparent distress at this time. No changes from tw2 previously documented assessment. Patient and/or family updated on plan of care and expected duration. Pain level reassessed. Patient is alert, oriented x 3, equal unlabored respirations, skin warm/dry/pink. 11:00 Reassessment: Patient appears in no apparent distress at this time. Patient and/or rb1 family updated on plan of care and expected duration. Pain level reassessed. Patient is alert, oriented x 3, equal unlabored respirations, skin warm/dry/pink. 11:49 Reassessment: Patient appears in no apparent distress at this time. Patient and/or rb1 family updated on plan of care and expected duration. Pain level reassessed. Patient is alert, oriented x 3, equal unlabored respirations, skin warm/dry/pink. Patient denies pain at this time. 12:45 Reassessment: Patient appears in no apparent distress at this time. No changes from rb1 previously documented assessment. Vital Signs: 09:01 BP 118 / 82; Pulse 81; Resp 19; Temp 98.7(TE); Pulse Ox 100% on R/A; Weight 68.04 kg; Height 5 ft. 4 in. (162.56 cm); Pain 10/10; 10:01 BP 118 / 55; Pulse 58; Resp 17; Pulse Ox 100% on R/A; tw2 11:00 BP 90 / 55; Pulse 46; Resp 16; Pulse Ox 100% on R/A; rb1 11:48 BP 98 / 55; Pulse 60; Resp 17; Pulse Ox 100% on R/A; Pain 0/10; rb1 12:45 BP 103 / 52; Pulse 72; Resp 17; Pulse Ox 95% on R/A; Pain 0/10; rb1 09:01 Body Mass Index 25.75 (68.04 kg, 162.56 cm) ED Course: 08:53 Patient arrived in ED. as 08:58 Haley Jameson FNP-C [facility] snw 08:58 Eduardo Todd MD is Attending Physician. snw 09:00 Triage completed. ss 09:01 Arm band placed on right wrist. ss 09:02 Bed in low position. Call light in reach. tw2 09:04 Lauren Aguilar, RN is Primary Nurse. rb1 09:05 Patient has correct armband on for positive identification. Placed in gown. Bed in low rb1 position. Call light in reach. Side rails up X 1. Pulse ox on. NIBP on. Warm blanket given. 09:18 Initial lab(s) drawn, by me, sent to lab. kj1 09:18 Inserted saline lock: 22 gauge in right antecubital area, using aseptic technique. kj1 Blood collected. 09:22 Urine collected: clean catch specimen, clear. kj1 09:32 Radiology exam delayed due to test not completed at this time. bq 10:00 CT Stone Protocol In Process Unspecified. EDMS 12:37 Celestino Lyn MD is Referral Physician. snw 13:06 No provider procedures requiring assistance completed. IV discontinued, intact, rb1 bleeding controlled, No redness/swelling at site. Pressure dressing applied. Administered Medications: 09:45 Drug: TORadol 30 mg Route: IVP; Site: right antecubital; tw2 10:00 Follow up: Response: No adverse reaction; Pain is decreased rb1 09:46 Drug: fentaNYL (PF) 50 mcg Route: IVP; Site: right antecubital; tw2 10:00 Follow up: Response: No adverse reaction; Pain is decreased rb1 09:47 Drug: NS 0.9% 1000 ml Route: IV; Rate: 1 bolus; Site: right antecubital; tw2 10:52 Follow up: IV Status: Completed infusion rb1 10:34 Drug: Rocephin 1 grams Route: IV; Rate: calculated rate; Site: right antecubital; rb1 11:05 Follow up: Response: No adverse reaction; IV Status: Completed infusion rb1 10:52 Drug: Magnesium Sulfate 1 grams Route: IVPB; Infused Over: 1 hrs; Site: right rb1 antecubital; 12:04 Follow up: Response: No adverse reaction; IV Status: Completed infusion rb1 13:00 Drug: Flomax 0.4 mg Route: PO; rb1 13:05 Follow up: Response: Medication administered at discharge. rb1 Outcome: 12:37 Discharge ordered by . monica 13:06 Discharged to home ambulatory, with significant other. rb1 13:06 Condition: stable 13:06 Discharge instructions given to patient, Instructed on discharge instructions, follow up and referral plans. medication usage, Demonstrated understanding of instructions, follow-up care, medications, Prescriptions given X x 5 13:08 Patient left the ED. rb1 Signatures: Dispatcher [employer] EDMS Haley Jameson, UNIFORM FORCE CAPTAIN-C UNIFORM FORCE CAPTAIN-Csnw Taty Hopkins Amelia as Smirch, Shelby, KAUSHIK RN ss Lauren Aguilar, RN RN rb1 Fiona Omer RN RN tw2 Margaret Gutiérrez1
--- NOTE | 2019-04-04 12:38 | EDPHYS ---
Physician Documentation [facility] Name: Marita Dangelo Age: 23 yrs Sex: Female : 1995 Arrival Date: 04/04/2019 Time: 08:53 Bed 18 Private MD: ED Physician Eduardo Todd HPI: 04/04 11:23 This 23 yrs old Female presents to ER via Ambulatory with complaints of snw Abdominal Pain, Vomiting. 11:23 The patient presents with abdominal pain in the right upper quadrant, right lower snw quadrant. Onset: The symptoms/episode began/occurred suddenly, last night. The symptoms radiate to right back. Associated signs and symptoms: Pertinent positives: nausea and vomiting, Pertinent negatives: fever. Associated signs and symptoms: Pertinent negatives: fever. The symptoms are described as constant, sharp. Severity of pain: At its worst the pain was severe. The patient has not experienced similar symptoms in the past. It is unknown whether or not the patient has recently seen a physician. 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 - Social history:: Smoking status: Patient/guardian denies using tobacco. - Ebola Screening: : Patient denies exposure to infectious person Patient denies travel to an Ebola-affected area in the 21 days before illness onset. ROS: 11:22 Constitutional: Negative for fever, chills, and weight loss, Eyes: Negative for injury, snw pain, redness, and discharge, ENT: Negative for injury, pain, and discharge, Neck: Negative for injury, pain, and swelling, Cardiovascular: Negative for chest pain, palpitations, and edema, Respiratory: Negative for shortness of breath, cough, wheezing, and pleuritic chest pain, Back: Negative for injury and pain, : Negative for injury, bleeding, discharge, and swelling, MS/Extremity: Negative for injury and deformity, Skin: Negative for injury, rash, and discoloration, Neuro: Negative for headache, weakness, numbness, tingling, and seizure. 11:22 Abdomen/GI: Positive for abdominal pain, nausea, vomiting, of the right upper quadrant and right lower quadrant. Exam: 10:00 Constitutional: The patient appears awake, anxious, in obvious pain, restless, snw uncomfortable. 10:00 Head/Face: Normocephalic, atraumatic. Eyes: Pupils equal round and reactive to light, snw extra-ocular motions intact. Lids and lashes normal. Conjunctiva and sclera are non-icteric and not injected. Cornea within normal limits. Periorbital areas with no swelling, redness, or edema. ENT: Nares patent. No nasal discharge, no septal abnormalities noted. Tympanic membranes are normal and external auditory canals are clear. Oropharynx with no redness, swelling, or masses, exudates, or evidence of obstruction, uvula midline. Mucous membranes moist. Neck: Trachea midline, no thyromegaly or masses palpated, and no cervical lymphadenopathy. Supple, full range of motion without nuchal rigidity, or vertebral point tenderness. No Meningismus. Chest/axilla: Normal chest wall appearance and motion. Nontender with no deformity. No lesions are appreciated. Cardiovascular: Regular rate and rhythm with a normal S1 and S2. No gallops, murmurs, or rubs. Normal PMI, no JVD. No pulse deficits. Respiratory: Lungs have equal breath sounds bilaterally, clear to auscultation and percussion. No rales, rhonchi or wheezes noted. No increased work of breathing, no retractions or nasal flaring. Back: No spinal tenderness. No costovertebral tenderness. Full range of motion. Skin: Warm, dry with normal turgor. Normal color with no rashes, no lesions, and no evidence of cellulitis. MS/ Extremity: Pulses equal, no cyanosis. Neurovascular intact. Full, normal range of motion. Neuro: Awake and alert, GCS 15, oriented to person, place, time, and situation. Cranial nerves II-XII grossly intact. Motor strength 5/5 in all extremities. Sensory grossly intact. Cerebellar exam normal. Normal gait. Psych: Awake, alert, with orientation to person, place and time. Behavior, mood, and affect are within normal limits. 10:00 Abdomen/GI: Inspection: abdomen appears normal, Bowel sounds: normal, Palpation: moderate abdominal tenderness, in the right upper quadrant and right lower quadrant. Vital Signs: 09:01 BP 118 / 82; Pulse 81; Resp 19; Temp 98.7(TE); Pulse Ox 100% on R/A; Weight 68.04 kg; ss Height 5 ft. 4 in. (162.56 cm); Pain 10/10; 10:01 BP 118 / 55; Pulse 58; Resp 17; Pulse Ox 100% on R/A; tw2 11:00 BP 90 / 55; Pulse 46; Resp 16; Pulse Ox 100% on R/A; rb1 11:48 BP 98 / 55; Pulse 60; Resp 17; Pulse Ox 100% on R/A; Pain 0/10; rb1 12:45 BP 103 / 52; Pulse 72; Resp 17; Pulse Ox 95% on R/A; Pain 0/10; rb1 09:01 Body Mass Index 25.75 (68.04 kg, 162.56 cm) ss MDM: 09:11 Patient medically screened. snw 12:42 Data reviewed: vital signs, nurses notes. Data interpreted: Pulse oximetry: on room air snw is 100 %. Interpretation: normal. Counseling: I had a detailed discussion with the patient and/or guardian regarding: the historical points, exam findings, and any diagnostic results supporting the discharge/admit diagnosis, lab results, radiology results, the need for outpatient follow up, to return to the emergency department if symptoms worsen or persist or if there are any questions or concerns that arise at home. Response to treatment: the patient's symptoms have markedly improved after treatment, return precautions for fever, vomiting, pain. 04/04 09:15 Order name: Basic Metabolic Panel; Complete Time: 09:49 snw 04/04 09:15 Order name: CBC with Diff; Complete Time: 09:49 snw 04/04 09:15 Order name: Creatinine for Radiology; Complete Time: 09:49 snw 04/04 09:15 Order name: Hepatic Function; Complete Time: 09:49 snw 04/04 09:07 Order name: CT Stone Protocol; Complete Time: 10:38 snw 04/04 09:15 Order name: Lipase; Complete Time: 09:49 snw 04/04 09:41 Order name: Urine Dipstick--Ancillary (enter results); Complete Time: 09:58 ms 04/04 09:41 Order name: Urine --Ancillary (enter results); Complete Time: 09:58 ms 04/04 08:58 Order name: Urine Test (obtain specimen); Complete Time: 09:25 snw 04/04 08:58 Order name: Urine Dipstick-Ancillary (obtain specimen); Complete Time: 09:25 snw 04/04 09:15 Order name: IV Saline Lock; Complete Time: 09:25 snw 04/04 09:15 Order name: Labs collected and sent; Complete Time: 09:25 snw Administered Medications: 09:45 Drug: TORadol 30 mg Route: IVP; Site: right antecubital; tw2 10:00 Follow up: Response: No adverse reaction; Pain is decreased rb1 09:46 Drug: fentaNYL (PF) 50 mcg Route: IVP; Site: right antecubital; tw2 10:00 Follow up: Response: No adverse reaction; Pain is decreased rb1 09:47 Drug: NS 0.9% 1000 ml Route: IV; Rate: 1 bolus; Site: right antecubital; tw2 10:52 Follow up: IV Status: Completed infusion rb1 10:34 Drug: Rocephin 1 grams Route: IV; Rate: calculated rate; Site: right antecubital; rb1 11:05 Follow up: Response: No adverse reaction; IV Status: Completed infusion rb1 10:52 Drug: Magnesium Sulfate 1 grams Route: IVPB; Infused Over: 1 hrs; Site: right rb1 antecubital; 12:04 Follow up: Response: No adverse reaction; IV Status: Completed infusion rb1 13:00 Drug: Flomax 0.4 mg Route: PO; rb1 13:05 Follow up: Response: Medication administered at discharge. rb1 Disposition: 13:52 Co-signature as Attending Physician, Eduardo Todd MD. rn Disposition: 04/04/19 12:37 Discharged to Home. Impression: Hydronephrosis with renal and ureteral calculous obstruction. - Condition is Stable. - Discharge Instructions: Kidney Stones, Hydronephrosis, Dietary Guidelines to Help Prevent Kidney Stones, Rehydration, Adult. - Prescriptions for Augmentin 875- 125 mg Oral Tablet - take 1 tablet by ORAL route every 12 hours for 10 days; 20 tablet. Tylenol- Codeine #3 300-30 mg Oral Tablet - take 2 tablet by ORAL route every 6 hours As needed; 30 tablet. Flomax 0.4 mg Oral Capsule, Sust. Release 24 hr - take 1 capsule by ORAL route once daily 1/2 hour following the same meal each day; 30 capsule. Diclofenac Sodium 75 mg Oral Tablet Sustained Release - take 1 tablet by ORAL route 2 times per day; 30 tablet. promethazine 25 mg Oral Tablet - take 1 tablet by ORAL route every 6 hours As needed; 20 tablet. - Medication Reconciliation Form, Thank You Letter, Antibiotic Education, Prescription Opioid Use form. - Follow up: Emergency Department; When: As needed; Reason: Fever > 102 F, Worsening of condition. Follow up: Private Physician; When: Tomorrow; Reason: Recheck today's complaints, Continuance of care, Re-evaluation by your physician. Follow up: Celestino Lyn MD; When: 2 - 3 days; Reason: Recheck today's complaints, Continuance of care. Signatures: Dispatcher [employer] EDMS Haley Jameson, PHOTOGRAPHIC EQUIPMENT MECHANIC-C PHOTOGRAPHIC EQUIPMENT MECHANIC-Csnw Eduardo Todd MD MD rn Smirch, Shelby, RN RN ss Lauren Aguilar RN RN rb1 Fiona Omer RN RN tw2 Corrections: (The following items were deleted from the chart) 13:08 12:37 04/04/2019 12:37 Discharged to Home. Impression: Hydronephrosis with renal and rb1 ureteral calculous obstruction. Condition is Stable. Forms are Medication Reconciliation Form, Thank You Letter, Antibiotic Education, Prescription Opioid Use. Follow up: Emergency Department; When: As needed; Reason: Fever > 102 F, Worsening of condition. Follow up: Private Physician; When: Tomorrow; Reason: Recheck today's complaints, Continuance of care, Re-evaluation by your physician. Follow up: Celestino Lyn; When: 2 - 3 days; Reason: Recheck today's complaints, Continuance of care. snw
[2019-04-04] MEDS ORDERED: TAMSULOSIN 0.4 MG SR CAP ONE (13:01)
[2019-04-04 13:25] VITALS: TEMP 98.7
[2019-04-04 13:30] VITALS: BP 103/52; O2SAT 95
== END 2019-04-04 13:08 | disposition home or self-care (01) ==
LOC: ER 08:52
DX: N13.2 Hydronephrosis with renal and ureteral calculous obstruction (principal); R11.2 Nausea with vomiting, unspecified; Z88.1 Allergy status to other antibiotic agents
CPT/HCPCS: 96365; 96361; 96368; 85025; 80048; 36415; 81025; 80076; 81003; 83690; 76377; 74176; 96375; 99284; J3010; J3475; J0696; J7030

== ENCOUNTER 2024-06-03 14:59 | Emergency (ER) | payer BC, OTHER ==
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
[2024-06-03 16:44] VITALS: TEMP 97.7; O2SAT 100
[2024-06-03 16:48] VITALS: BP 123/62
== END 2024-06-03 16:25 | disposition home or self-care (01) ==
LOC: ER 14:59
DX: S76.011A Strain of muscle, fascia and tendon of right hip, initial encounter (principal); M25.561 Pain in right knee; V49.40XA Driver injured in collision with unspecified motor vehicles in traffic accident, initial encounter
CPT/HCPCS: 99284